=== PATIENT | female | born 1950 | race Caucasian/White ===

== ENCOUNTER 2020-07-09 11:21 | Inpatient (IN) | payer OTHER, MEDICARE ==
--- OUTSIDE RECORDS SUMMARY | 2020-07-09 11:26 | XMS REPORT | Continuity of Care Document ---
:1950 Author Organization [facility] t Address [address] [place] [address] Care Team Providers Name Role Phone Pcp Primary Care Physician Unavailable Provider, Urgent Care Attending Clinician Unavailable Corrie Chavez Attending Clinician Jim Storm DO Attending Clinician Everardo Conteh MD Attending Clinician Emilee Mccarthy MA Attending Clinician Unavailable Otoniel Selby MA Attending Clinician Unavailable Calixto BERNAL Attending Clinician Unavailable Calixto Andrew Attending Clinician Lester Attending Clinician Unavailable Malik ALARCON Attending Clinician Unavailable Kvng FIGUEREDO, Devin Attending Clinician Unavailable Shamika Newsome NP Attending Clinician EVERARDO CONTEH Attending Clinician Unavailable Jer VELAZQUEZ Attending Clinician Laurence Nath NP Attending Clinician Otoniel Machado MD Attending Clinician Sumanth ALARCON Attending Clinician Unavailable Majo Rojas MD Attending Clinician MARIAELENA ELAM Attending Clinician Unavailable Mariaelena Elam MD Attending Clinician Stacey Bhatt MD Attending Clinician [phone] Mariaelena Elam MD Attending Clinician Chaz FIGUEREDO Attending Clinician Unavailable Power ALARCON Attending Clinician Unavailable MAJO ROJAS Attending Clinician Unavailable WILDA RAMOS Attending Clinician Unavailable EVERARDO CONTEH Admitting Clinician Unavailable MARIAELENA ELAM Admitting Clinician Unavailable WILDA RAMOS Admitting Clinician Unavailable Payers Payer Name Policy Type Policy Effective Date Expiration Date Sour ce Number MEDICAREMEDICARE A [id number] 2017 EMILIANO Gonzalez [id number] 2017-P 00:00:00 - Medical resentMedicare Center MCR [id number] 2019 EMILIANO Mcbridekes SUPPLEMENT/INDIVIDUALA 00:00:00 - Medical [id number] /03/2019-PresentMedigap Problems Condition Condition Condition Status Onset Resolution Last Treating Co mments Source Name Details Category Date Date Treatment Clinician Date 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 Flushing Flushing Disease Active Last [facility] - Assessmen [facility] - 00:[facility]: t & Plan: Medical 00 I do not Center think that flushing is a liver problem I advised her to speak to her gynecolog ist. Alternati ve causes such as carcinoid and mastocyto sis should be considere d if her gynecolog ist feels that the syndrome is not related to estrogen. History of History of Disease Active Last [facility] hepatitis hepatitis -18 Assessmen Jonel munguiaes - C C 00:00: t & Plan: Medical 00 Treated Center with interfero n and ribavirin in - confirmed cure on 07/22/2019 . No further testing is required. Immunity Immunity Disease Active Last [facility] t status status 07-21 Assessmen Carlos - testing testing 00:00: t & Plan: Medic al 00 CDC Center recommend s that all patients with chronic liver disease, regardles s of etiology, should be immunized to prevent hepatitis A and hepatitis B if they are not already immune. This should be done in addition to other age-appro priate vaccines. 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 Hepatitis vaccines are not required. required. History of History of Disease Active Last [facility] hepatitis hepatitis 07-21 Assessmen Jonel ukes - B B 00:00: t & Plan: Medical 00 Testing Center on 07/22/2019 showed anti-HBc (+), HBsAg (-), anti-HBs (-). This indicates prior exposure without viral replicati on. She is at risk for reactivat ion of infection if she is immunosup pressed. Knee Knee Disease Active [facility] osteoarthr osteoarthr 10-04 Susan kes - itis itis 00:00: Medical 00 [place] Osteoarthr Osteoarthr Disease Active [facility] itis of itis of 10-04 Carlos - left knee left knee 00:00: Medi tabitha 00 Center S/P knee S/P knee Disease Active [facility] t replacemen replacemen 10-04 Susan kes - t t 00:00: Medical 00 Center Allergies, Adverse Reactions, Alerts Allergy Allergy Status Severity Reaction(s) Onset Inactive Treating Comm ents Source Name Type Date Date Clinician Sulfa DA Active [facility] (Sulfona 4[facility]14 [facility] Antibiot 00 l of ics[facility] [place] codeine DA Active [facility] 4[facility]14 [facility] [place] Sulfa DA Active U [facility] (Sulfona 4-12 [facility] 00:[facility]: [facility]ospita Antibiot 00 l of ics) [place] codeine DA Active U [facility] 4[facility]12 [facility] 00[facility] [place] Codeine Drug Active Other [facility] Sulfate Allergy 8-17 reaction( [facility] - 00:00: s): Medical 00 nausea Center and vomiting Sulfamet Drug Active Nausea And 2018- [facility] hoxazole Intolera Vomiting 7-18 Luke s - -Trimeth nce 00:00: Medical oprim 00 Center Codeine Drug Active Itching, 2018- [facility] Allergy Nausea Only, 7-18 Noe es - Rash 00:00: Medical 00 [place] Levoflox Drug Active Nausea And Other [facility] acin Allergy Vomiting 7-18 reaction( Luke s - 00:00: s): Medical 00 hives, Center hives Levaquin Adverse Active hives [facility] Reaction [facility] Codeine Adverse Active nausea and [facility] Sulfate Reaction vomiting [facility] sulfa Adverse Active rash [facility] drugs Reaction [facility] Family History Family Member Diagnosis Comments Start Date Stop Date Source Natural brother Thyroid disease [facility] Natural father Heart disease [facility] Natural father Thrombosis [facility] Natural mother Cancer [facility] Natural sister Thy[facility] Social History Social Habit Start Date Stop Date Quantity Comments Source History SDOH [facility] - Alcohol Std Drinks Medica Center History [facility] - Alcohol Binge Medical Tiffanie ter Sex Assigned At [facility] Tobacco use and 2020-03-30 2020-03-[address] [facility] kes - exposure 00:00:00 00:00:00 [facility] Alcohol intake 2020-03-30 2020-03-[address] 00:00:00 non-drinker of Medical Ce nter alcohol (finding) History SDOH 2019-08-28 2019-08-[address] [facility] - Alcohol Frequency 00:00:00 00:00:00 [facility] Tobacco Comment 2019-07-22 2019-07-22 smoking snice [address] [facility] - 00:00:00 00:00:00 years [facility] Alcohol Comment 2019-07-22 2019-07-22 quit in 1996 [facility] - 00:00:00 00:00:00 [facility] History of tobacco 2016-12-21 Current smoker [facility] use 00[facility] Medical Center Smoking Status Start Date Stop Date Source Former smoker 2020-03-30 00:00:00 2020-03-30 00:00:[address] [facility] Medications Ordered Filled Start Stop Current Ordering Indication Dosage Frequency Signature Comments Components Source Medication Medication Date Date Medication? Clinician (SIG) Name Name atorvastati Yes 10mg QD Take [address] n (LIPITOR) 25 by mouth Luke s - 10 MG 09:48: daily. Medical tablet 12 [place] calcium Yes QD Take by [facility] carbonate/v 1-04 mouth Lukes - itamin D3 17:20: daily. Medica l (CALCIUM 44 Center 600 + D,3, ORAL) citalopram Yes 40mg QD Take [address] (CELEXA) 40 1-04 by mouth Luke s - MG tablet 17:20: daily. Medica l 44 [place] levothyroxi Yes 50ug Take [address] ne 1-04 mcg by [facility]ukes - (SYNTHROID, 17:20: mouth Medic al LEVOTHROID) 44 Every Center 50 MCG morning on tablet an empty stomach. lisinopril Yes 20mg QD Take [address] (PRINIVIL,Z 1-04 by mouth Luke s - ESTRIL) 20 17:20: nightly . Me dical MG tablet 44 Center metoprolol Yes 50mg QD Take [address] succinate 1-04 by mouth [facility] - 50 mg CSpX 17:20: daily . Medi tabitha 44 [place] milk Yes QD Take by [facility] thistle 150 1-04 mouth [facility] - mg Cap 17:20: daily. [facility] 44 [place] cyclobenzap Yes 10mg Take [address] rine 1-04 by mouth [facility] - (FLEXERIL) 17:20: as needed Me dical 10 MG 44 . [place] tablet valACYclovi Yes 500mg Take [address] r (VALTREX) 1-04 mg by [facility] - 500 MG 17:20: mouth as Medical tablet 44 needed . [place] rosuvastati Yes 10mg QD Take [address] n (CRESTOR) 1-04 by mouth Luke s - 40 MG 17:20: daily . Medical tablet 44 [place] omeprazole 2019-03 Yes 40mg QD Take [address] (PriLOSEC) 03-06 by mouth [facility] - 40 MG 00:00: daily. Medical capsule 00 [place] hepatitis B 2019-03 2020- No Hepatitis B .5mL Inject 0.[address] vaccine 0-13 10-13 core mLs [facility] - (Heplisav-B 00:00: 23:59 antibody intramuscu Medical , PF,) 20 00 :00 positive larly once [place] mcg/0.5 mL for 1 Soln dose. intramuscul ar solution meloxicam No 15mg Take [address] (MOBIC) 15 10-06 by mouth Luke s - MG tablet 11:28: 00:00 as needed Me dical 09 :00 . [place] omeprazole No 40mg QD Take [address] (PRILOSEC) 10-06 capsule [facility] - 40 MG 00:00: 23:59 (40 mg Medical capsule 00 :00 total) by [place] mouth daily for 90 days. rosuvastati No 40mg QD Take [address] n (CRESTOR) 7 07-30 by mouth Noe es - 40 MG 15:22: 00:00 daily. Medical tablet 10 :00 [place] [facility] Yes Ginny [address] n Calcium n Calcium [place] Luke [facility] Clinics Vital Signs Vital Name Observation Time Observation Value Comments Source Body weight 2020-03-30 09:41:[address] [facility] BMI 2020-03-30 09:41:00 29.95 kg/m2 [facility] Systolic blood 2020-03-09 16:30:00 157 mm[Hg] [facility] pressure [facility] Diastolic blood 2020-03-09 16:30:00 69 mm[Hg] [facility] S t [facility] pressure [facility] Heart rate 2020-03-09 16:30:00 86 /min [facility] Oxygen saturation in 2020-03-09 16:00:00 95 /min [facility] - Arterial blood by Medical Ce nter Pulse oximetry Respiratory rate 2020-03-09 13:30:00 21 /min [facility] Body temperature 2020-03-09 13:00:00 36.72 Martha 98.1O [facility] Body height 2020-03-09 08:50:[address] [facility] Procedures Procedure Date / Time Performing Clinician Source Performed US LIVER BIOPSY 2020-03-09 12:57:[address] [facility] TISSUE EXAM 2020-03-09 12:55:[address] [facility] CT ABDOMEN WITHOUT IV 2020-03-09 11:26:00 Maninder Murphy [facility] PT/APTT 2020-03-09 08:17:[address] [facility] CBC W/PLT COUNT & AUTO 2020-03-09 08:17:00 Maninder Murphy [facility] BASIC METABOLIC PANEL (7) 2020-02-17 12:14:00 Nini Bernal [facility] HEPATIC FUNCTION PANEL 2020-02-17 12:14:00 Nini Bernal [facility] CBC W/PLT COUNT & AUTO 2020-02-17 12:14:00 Nini Bernal [facility] PROTHROMBIN TIME/INR 2020-02-17 12:14:00 Nini Bernal [facility] HEPATITIS B PCR, 2020-01-15 14:02:00 Kalia Conteh [facility] QUANTITATIVE [facility] HEPATITIS B SURFACE 2020-01-15 14:02:00 Kalia Conteh [facility] HEPATITIS B CORE ANTIBODY, 2020-01-15 14:02:00 Kalia Conteh [facility] CBC W/PLT COUNT & AUTO 2019-11-04 08:47:00 [facility] HEPATIC FUNCTION PANEL 2019-11-04 08:47:00 Nath, Jimmy Spring [facility] BASIC METABOLIC PANEL (7) 2019-11-04 08:47:00 Jimmy Nath [facility] REPORT OF PROCEDURE - 2019-10-07 11:26:20 Bhavin Elam [facility] ENDOSCOPY [facility] REPORT OF PROCEDURE - 2019-10-07 11:19:50 Sheikh Bhavin [facility] ENDOSCOPY [facility] TISSUE EXAM 2019-10-07 10:26:00 Sheikh Bhavinmary Ferrell [facility] COLONOSCOPY,POLYPECTOMY 2019-10-07 10:12:00 Bhavin Elam [facility] UPPER ENDOSCOPY,BIOPSY 2019-10-07 10:12:00 Bhavin Elam [facility] US ABDOMEN COMPLETE 2019-08-01 10:00:00 Mack Rojas [facility] COMPREHENSIVE METABOLIC 2019-07-22 11:46:00 Mack Rojas [facility] - PANEL [facility] BILIRUBIN, DIRECT 2019-07-22 11:46:00 Mack Rojas [facility] CBC W/PLT COUNT & AUTO 2019-07-22 11:46:00 Mack Rojas [facility] - DIFFERENTIAL [facility] HEPATITIS A ANTIBODY, IGG 2019-07-22 11:46:00 Mack Rojas [facility] HEPATITIS B SURFACE 2019-07-22 11:46:00 Mack Rojas [facility] - ANTIGEN [facility] HEPATITIS B SURFACE 2019-07-22 11:46:00 Mack Rojas [facility] - ANTIBODY [facility] HEPATITIS B CORE ANTIBODY, 2019-07-22 11:46:00 Mack Rojas [facility] - TOTAL [facility] IRON, TIBC, % SAT. 2019-07-22 11:46:00 Mcak Rojas [facility] - [facility]WITHOUT FERRITIN[facility] 2019-07-22 11:46:00 Mack Rojas [facility] CERULOPLASMIN 2019-07-22 11:46:00 OswaldoMack [facility] ANTI-NUCLEAR ANTIBODY 2019-07-22 11:46:00 Oswaldo Mack [facility] - (MARY) [facility] ACTIN (SMOOTH MUSCLE) 2019-07-22 11:46:00 Oswaldo Mack [facility] - ANTIBODY, IGG [facility] HEPATITIS C PCR, 2019-07-22 11:46:00 Oswaldo Mack EMILIANO [facility] - QUANTITATIVE [facility] IMMUNOGLOBULIN G (IGG) 2019-07-22 11:46:00 OswaldoMack baeza [facility] MARY TITER AND PATTERN 2019-07-22 11:46:00 OswaldoMack baeza [facility] [id number]\\, 2019-07-22 11:45:00 Mack Rojas [facility] SERUM [facility] MITOCHONDRIA M2 ANTIBODY 2019-07-22 11:45:00 Oswaldo Mack [facility] - (IGG) [facility] Plan of Care Planned Activity Planned Date Details Comments Source Future Scheduled 2029-10-[address] Noe es - Test 00:00:00 malignant neoplasm of Medica Center colon (procedure) [code = 267599192] Future Scheduled 2024-07-23 DTAP/TDAP/TD VACCINES [facility] - Test 00:00:00 (2 - Td) [code = [facility] ter DTAP/TDAP/TD VACCINES (2 - Td)] Future Scheduled 2020-03-[address] [facility] - Test 00:00:00 (12+) [code = [facility] DEPRESSION SCREENING (12+)] Future Scheduled 2018-06-[address] [facility]kes - Test 00:00:00 WELLNESS (YEAR 2 or Medical Center FIRST YEAR if no IPPE) [code = MEDICARE ANNUAL WELLNESS (YEAR 2 or FIRST YEAR if no IPPE)] Future Scheduled 2017 PNEUMOCOCCAL 65+ YRS [facility] - Test 00:00:00 (1 of 1 - [facility] [id number]) [code = PNEUMOCOCCAL 65+ YRS (1 of 1 - [id number] PCV13)] Future Scheduled 2002 SHINGLES VACCINES ([address] [facility] - Test 00:00:00 of 2) [code = SHINGLES Medic al Center VACCINES (1 of 2)] Future Scheduled [address] Noe es - Test 00:00:00 malignant neoplasm of Medica l Center breast (procedure) [code = 364410144] Encounters Start End Encounter Admission Attending Care Care Encounter Source Date/Time Date/Time Type Type Clinicians Facility Department ID 2020-06-24 2020-06-24 Urgent Provider, [facility] [id number] 08:49:40 09:29:33 Care [facility] Urgent Health [id number] Care [place] [id number] Professio [phone] nal [address] 2020-06-24 2020-06-24 Telephone Duglas, [facility] [id number] 00:00:00 00:00:00 [facility] [id number] [place] [id number] Professio [phone] nal 0[address] 2020-06-16 2020-06-16 [id number] 2020-06-08 2020[facility]06-08 [facility] [id number] 2020-06-04 2020-06-04 [facility] [id number] 2020-06-01 2020-06-01 [facility] [id number] [facility] 2020-06-01 2020-06-01 [facility] [id number] 2020-05-31 2020-05-31 [facility] [id number] [facility] 2020-05-21 2020-05-21 [facility] [id number] [facility] 2020-05-18 2020-05-18 [facility] [id number] [facility] 2020-05-11 2020-05-11 Patient Emeterio, [facility] [id number] 00:00:00 00:00:00 Outreach [facility] [id number] [facility] [id number] GARY [id number] 2020-05-11 2020-05-11 [facility] [id number] [facility] 2020-04-27 2020-04-27 [facility] [id number] [facility] 2020-04-14 2020-04-14 [facility] [id number] [facility] 2020-04-07 2020-04-07 [facility] [id number] [facility] 2020-04-01 2020-04-01 [facility] [id number] [facility] 2020-04-01 2020-04-01 [facility] [id number] [facility] 2020-03-31 2020-03-31 [facility] [id number] [facility] 2020-02-27 2020-02-27 Outpatient [facility] [id number] [facility] 00[facility]00 [facility] 2020-01-21 2020-01-21 Outpatient [facility] [id number] [facility] 00:00:00 [facility] 2019-12-13 2019-12-13 Office BRITTON Machado [id number] 13:51:31 14:35:10 Visit Miguel Olson [id number] [place] [phone] [address] 2019-11-28 2019-11-28 Outpatient [facility] [id number] [facility] 00:[facility]00 00:00:00 [facility] 2019-11-06 2019-11-06 [facility] [id number] 11:10:00 11:10:00 [facility] 2019-11-05 2019-11-05 [facility] [id number] 11:00:00 11:00:00 [facility] 2019-10-21 2019-10-21 [facility] [id number] 09:00:00 09:00:00 [facility] 2019-09-17 2019-09-17 Office ElamHELDER woodward [id number] 09:10:27 17:17:16 Visit Bhavin Ferrell AMBULATOR [id number] Y [id number] Results Test Description Test Time Test Comments Results Result Comments Source UTERUS W/WO TUBE/OVA. PROLAPSE 2020-06-18 12:55:00 Test Item Value Reference Range Interpretation Comme nts UTERUS W/WO RUN DATE: TUBE/OVA. 06/18/20 [facility] PAGE 1 RUN TIME: 1813 PROLAPSE Specim en Inquiry RUN USER: INTERFACE (test code = PATIENT: UTERUSPRO) BRIGID JACKSON LOC: BUTCHI U #: [id number] AGE/SX: 69/F ROOM: RE06/17/20REG DR: Angelina Huffman MD : 54 BED: DIS: [place] [facility] [place]: SPEC #: [id number] RECD: STATUS: ALICE REQ #: [id number] NIMCO: 06/17/20- SUBM DR: Angelina Huffman MD ENTERED: 06/17/20 SP TYPE: UTERUSPRO LUIS DR: ORDERED: LEVEL IV CODES: [id number] - UTERUS, NOS PROCEDURES: LEVEL IV (Incomplete) TISSUES: UTERUS, NOS - UTERUS,CERVIX,BILATERAL TUBES AND OVARIES CLINICAL HISTORY 69 year old, uterine prolapse (timur) FINAL DIAGNOSIS Uterus, bilateral fallopian tubes and ovaries, hysterectomy and bilateral salpingo- oophorectomy: cervix - parakeratosis consistent wit h prolapse - no dysplasia identified endometrium - benign endometrial polyp in a background of weakly proliferative phase endometrium myometriu m - leiomyomas uterine serosa - no fibrous adhesions right fallopian tube - no signific ant pathologic alteration left fallopian tube - benign paratubal cysts right and left ovaries - no significant pathologic alteration CPT: [id number] ls/wpd GROSS DESCRIP TION ANATOMIC SOURCE OF TISSUE (per Requisition): Uterus, cervix, bilateral tubes and ovaries The specimen is received in formalin in a container, labeled with the patient's name and greer ignated "uterus, cervix, bilateral tubes and ovaries". It consists of an 8.7 x 6 x 3.8 cm hysterect magnolia specimen with attached bilateral adnexa. The uterus weighs 82 gms. The serosa is swift, smooth, and glistening and contains a protruding 1.5 cm subserosal, firm nodule in the posterior wall. The cervical external os measures 0.5 cm. The portio vaginalis measures 3.7 cm. The uterine cervix measures 4.5 cm in length. Drive Away Driver sections are submitted in CONTINUED ON NEXT PAGE * * RUN DATE: 06/18/20 [facility] PAGE 2 RUN TIME: 1813 Specimen Inquiry RUN USER: INTERFACE SPEC #: [id number] PATIENT: BRIGID JACKSON #[id number] (Continued) -- GROSS DESCRIPTION (Continued) A1. The endometrium measures 0.1 cm and contains a 0.8 cm red endome trial polyp. The myometrium measures 1.7 cm and contains additional swift, white, firm nodules m easuring up to 0.5 cm. No degenerative changes are noted. Drive Away Driver sections ar e submitted in A2 and A3. The right adnexa consists of a 2.4 x 1.1 x 0.9 cm ovary with an attac hed 6 x 0.4 x 3 cm segment of fallopian tube with fimbriae The entire fimbriae and one cross-secti on of tube and ovary are submitted in A4. The left adnexa consists of a 2.7 x 1.4 x 1. 2 cm ovary with an attached 4 x 0.3 x 0.3 cm segment of fallopian tube with fimbriae and multiple s loren-translucent, paratubal cysts measuring up to 0.6 cm. The entire fimbriae and one cross-secti on of tube with cysts and ovary are submitted in A5. stefania 06/17/20 Signed Sherly Viera MD 06/18/20 1255 END OF REPORT COVID 19 Asymptomatic IH [id number] 15:33:00 Test Item Value Reference Range Interpretation Comments COVID 19 NEGATIVE NEGATIVE This test has b een Asymptomatic IH AG authorize d only for the (test code = detection ofpro teins from COVNONPUIAG) SARS-CoV-2, not for any other viruses orpathogens. N egative results should be treated as presumptive andconfirmed wi th a molecular assay , if necessary for patientmanageme nt. Negative result s do not rule out COVID- 19 andshould not b e used as the sole basis for treatment orpat ient management deci sions, including infec tion controldecision s. Negative result s should be considered i n thecontext of a patient's recent exposure s, history and thepresence of clinical signs and symptoms consis tent withCOVID-19. T his test has not been FD A cleared or approved; th e test hasbeen authori tavia by FDA under an Emerge ncy Use Authorization(E UA) for use by laborato bob certified under the CLIA thatmeet the re quirements to perform mode rate, high or waivedcomple xity tests. This jennifer t is authorized for use at thePoint of Car e (POC), i.e., in patien t care settingsoperati ng under a CLIA Certificat e of Waiver, Certifi franchesca ofCompliance, o r Certificate of Accreditation. This test is only authori zemichelle for the duration of thedeclaration that circumstances e xist justifying theauthorizatio n of emergency use o f in vitro diagnostic test sfor detection and/o r diagnosis of CO VID-19 under Gohhctp42 4(b)(1) of the Act, 21 U.S .C. 360bbb-3(b)(1), unless theauthorizatio n is terminated or r evoked sooner. CHEMISTRY 7 [id number] 11:37:00 Test Item Value Reference Range Interpretation Comments SODIUM (test code = NA) 141 mEq/L 135-145 N POTASSIUM (test code = K) 4.3 mEq/L 3.5-5.0 N CHLORIDE (test code = CL) 103 mEq/L 100-115 N CARBON DIOXIDE (test code = CO2) 30 mEq/L 22-31 N ANION GAP (test code = GAP) 12.60 10-20 N GLUCOSE (test code = GLU) 72 mg/dL 65-110 N BLOOD UREA NITROGEN (test code = 11 mg/dL 7-18 N BUN) GLOMERULAR FILTRATION RATE (test 100 ml/min >60 N code = GFR) CREATININE (test code = CREAT) 0.6 mg/dL 0.5-1.0 N CALCIUM (test code = CA) 9.6 mg/dL 8.4-10.2 N CBC W/AUTO [id number] 11:21:00 Test Item Value Reference Range Interpretation Comments WHITE BLOOD CELL (test code = WBC) 7.8 K/mm3 6.5-12.3 N RED BLOOD CELL (test code = RBC) 4.39 M/mm3 3.51-4.69 N HEMOGLOBIN (test code = HGB) 14.4 g/dL 10.1-13.8 H HEMATOCRIT (test code = HCT) 43.9 % 32.5-41.8 H MEAN CELL VOLUME (test code = MCV) 100.0 fL 84.6-96.6 H MEAN CELL HGB (test code = MCH) 32.8 pg 27.3-33.9 N MEAN CELL HGB CONCETRATION (test 32.8 gm/dL 32.0-34.2 N code = MCHC) RED CELL DISTRIBUTION WIDTH (test 12.0 % 12.2-16.3 L code = RDW) PLATELET COUNT (test code = PLT) 254 K/mm3 134-363 N MEAN PLATELET VOLUME (test code = 10.6 fL 9.2-12.7 N MPV) NEUTROPHIL % (test code = NT%) 45.2 % 57.9-77.3 L LYMPHOCYTE % (test code = LY%) 34.9 % 14.5-29.7 H MONOCYTE % (test code = MO%) 13.6 % 3.6-10.2 H EOSINOPHIL % (test code = EO%) 5.3 % 0.0-3.0 H BASOPHIL % (test code = BA%) 0.6 % 0.1-0.9 N NEUTROPHIL # (test code = NT#) 3.5 K/mm3 LYMPHOCYTE # (test code = LY#) 2.7 K/mm3 MONOCYTE # (test code = MO#) 1.1 K/mm3 EOSINOPHIL # (test code = EO#) 0.41 K/mm3 BASOPHIL # (test code = BA#) 0.1 K/mm3 RBC MORPHOLOGY REQUIRED (test code NORMAL NORMAL = RBCM) PLATELET MORPHOLOGY REQUIRED (test NORMAL NORMAL code = PLTMR) Tissue [id number] 18:05:00 Test Item Value Reference Range Interpretation Comments Case Report (test code Surgical Pathology = 104) Report Case: [id number] Authorizing Provider: Nini Bernal FNP Collected: 03/09/2020 12:55 PM Ordering Location: [facility] Radiology Main Received: 03/09/2020 01:44 PM Pathologist: Lidia Atwood MD Specimen: Biopsy, Liver ADDENDUM (test code = [id number] 3381) Ban0yqc6YetMMxwQGzAFpj sATryhGrys91mOK0aC64AR 8hMOEdVyM4IIIauuK5Vdd3 XGFmCRVppBAiG335x1xpp5 mjhcTtgJC3rAgsAVMxITZu YWluXGZzMjAgVGhlIGFkZG HvRCQiZSsfXNFvpI9mLWos l7QlKCM1wgBxYKHhyqJdxA nfYQRsd4AqdBDoa9NhlhKm ZYK0SKDnqEQfdx9aRUHeqK Yzru1cDQVbwz9= DIAGNOSIS (test code = k1wowHMoNCFduSK6SfTlPN 3220) Yxx1gyx3CqoAZgmXWzMCia kKMnigQvgx19uEA9oN32GP 9nOTHoZkD0ADHkynT0Joe5 RKJsPFZkoREhL816q0dmg3 woczLgyPW3fBcqSGPrTGWw YWluXGZzMjAgVGhlIGFtZW 1fyXPoaEOqbwFhu04lZWSy kBCrCZRptpEhUQZ5VJLhoT Pvyx3pITScwOHrjlJ4eQib eLYpotVjSgUgQVD1KFTpnK XzqQp3vVdeCU1kHNlldAKc TFNzgbSxp4SeUKSxG5MsNY OcTLAsi8Sgo46iokWix7Si Jxfyop9cmXEvXOHqNQFuiN Rxh2NukyOnihIwlCBrkf2u aXMgbGluZSBpcyBjaGFuZ2 JlMORag29dGzCXVvOUU2eI WJZDMQlFTIRvA3GgUUEhSV 1zKbJOEpAJL4uNUVNQGEuI WSYyM5ZuAGbvJ3eEWHWEG8 NBTCBGRUFUVVJFUyBPZiBS TOsBYDHYQW2NXwUupAJhXV AnVSByxbAJcYUeR1jnsbcu TNehktSuk62mkO6aV7N9CS VquS8wFYWyKTlazXdoeteg aoR2ySKml2FuhSEaDDXxVA eeMC2xNRBbUshkLcOcJIjf YXJccGFyXGYwIExJVkVSLC IBSJRQCBLMQC1RYSqJCOZC RCBORUVETEUgQklPUFNJRV ImeZMdOOtDG5FBReimL2Ij E0lIC73XUhLZJRLRXJzJTQ DiWzznGs0BXAUNIYGZKJOA ORCCCaWeK3mNGOPQSsMidU OuHQ9zDfrVNe5UNPNtD7BG V0BpXcVXDpS7ZUPLAXTXDG PBD0YSJFHGXVGUTgHXXF9u HUVME0DFN2RCC21nlRRdFW 0gDWiBMFYRD6NNVConBZ6B FKCIAOIONB6AVZhMWCnlOO zLZV4WMGJYOnOUXcOUF7Kj QDCPUWBUFLegcWDsPV6jZK fITW1PZFKKEVAAVO4ACSMu KDwxJSksICBBTkQgUkFSRS IKOOzHA36NRK9IHPQGW6AS RVJBVElPTlxwYXIgLSBzZW RbV14jhCNnsOavBEOvrMPa OTFkIdVwxEBzGXWnCai5VC RbsIVaEAKcOmBwH0piaofp KuNKJYJzi5hzI9bruCXPoX SqO3YlXKpgriAsSZodLDjq AMXsMIS4BS4vSGKsPPFqle 0= COMMENT (test code = b5vupXSyXULllSW2VgZhRE 8158) Ack2vvi6IimQAdnDHpKIpy jQSojmZyow15iCQ5yO99OU 3bZKGpWmW3HQFmvgZ1Gvt4 JJPdQXPmcPZzO833x4blf1 jtsgWugGA4sHzkJQLiXTVz YWluXGZzMjAgVGhlIGJpb3 XjyHKktV89bhNogRkxYVBi gmCkvWEpokFcDW2fODFnv4 8hBDtvxPTzYKieOUqyp3Wn qBC7dvUgGBGzs05hbSLvgN ZpYyBiZWNhdXNlIHRoZSBj jAGaFN58ZXRbLL5sGS2lhi FzZXMgYXJlIHdpdGhpbiBu k1ZzQNrbvtBnC4JkAU7qGA B4iFnxDDJkjBmbVHOkkMQr x2MmwWRaQYNxp72mtumpTy JhtPkuVRBfzKnftT52fG3m lP6liGO9GAqopZnyMDSwAT FfcUmhjuChSqVHVXPoiH0y MDUvMjAyMCkuXHBhclxwYX UiR5XtFAPru41eqYFkj0W4 DHybuGpql7oiIR01pA2oYJ BpcyBzZWVuIGFuZCByZXBy QVIhodDhHPZmp9GhnXJlda Nwy0GfoNUiw7Wdw6PgOBOe h9aoZkHjeSDhxD== CPT Code(s) (test code p8bdgHEmYVZukYV5WfYhEZ = 3357) Fhm5cdo0RviTTkiTRyRAlb zMTfoiCljx72pQX5fM54UG 2qZCMbCqH8HSVryiM0Gnb8 HWKbLWXveIAcM524s0qrz3 irhaVfbZX9jAsbIUSuNOYy YWluXGZzMjAgODgzMDcsID y1FaAtGPr8JTCeupbdTHX2 CLINICAL HISTORY (test e0sduWZtDDLbpMC3NmHfDS code = 3356) Tmd0zjy1OqyPRmnJYaNXsu xXVwcvOvgi73zIQ2qZ96ZU 7sPSDyUhM8KEQjpcN0Vem8 MZEzGIBbyWWsU658z1cpl4 noydQihZB0nOxiWZYdMRKf YWluXGZzMjAgNjcgeWVhci CrtLVyO2J4F7PqpJLpLZYb yNQsCYW4zHAaCU6djLIit7 jjBoGniN7xbk9zWMRkqpGt DRZjj3NiXWiszJo1OYMmEG 39rM9vbaHmPZPJTTBzHZWC TFQpIHRoYXRcfndlcmUgbW qoEUr8MOPzFETkeUCxETXh yLbhm0qfSgW2nTTnH6AjQN BvZiBoZXIgaGVwYXRpdGlz FHGpPLCtiXO6EZfpleFsKH Ome8Vmf2IsjnxyDMA4b7Oa N5OyQSZhhE3kBRq+dGVzdG ruLdRfe0Foq1VwLCHeL1Y6 w4NcLEkvbjDtYQhxeKe0QT 1mGT0Xv8C4GCRdJ7LstTCv EFJlMFVmg9vzLHTFU6MXLE DmUM9qUVN1rEhkuXUzPWYh GJ6pffJjI5TbMBAqWPDpzx 7kWYN2N0UtsFo+MjAyMCBs LZZnIYi2ME23KWhjFYg+VG oayoVqJUcgcPZ9FVJqTGYr NFA5TBC1chDnOUYlGAmuSG qizWyjtCMyd9HuONaeLDXm nHWktL74DEF8DGzck2CmrL ajQW3oRQ2TRqklORpgQYgb uAupspInp7ZrLWgseHjbfE XrWtNbrozzbfZjEBTtH9kq beinILsnSY9pyMQ4OXVsi8 9onT6uqHEufnOqmTpeTCAr xkIbdaUsssGdfdDhP4Rtue x+bmWyh5M7DO2eKXGjKCGg VzZbr8ncZIefWWXsT4HoBf SySLSmNhQoLLIhMjUvs2Sc VMS6ZREguEYzGPCmB29vAM ZwAfSQAVPpGT69BIqGLJuq mJ9oI5Z2j8XckjGsJCYmRk xwYXJccGFyfQ== SPECIMEN SOURCE (test u7paaGHlUFIzbNT2ToGkTM code = 3377) Bws7mzp2CvhPQryEZmFDpj cWRxtwYpgw49zXO1qK78TZ 9oFCMyPrD8JNYaidL5Txn6 DSImYIWteKAbS511k3vuv6 adbgYiyUI7iFdyCMElHWKy CKsxNSIwFjKbQEx1DSUkbX FyfQ== GROSS DESCRIPTION (test p1kguRKbFJFhzCUiXtEhBC code = 3366) IpRFRsr8zeWMDmnXImTlYi MzNcZnRuYmpcdWMxXGRlZm Iui0aee480zOUmu9esBLFe HcR5tFWkEAQyqOZsZ788u1 tcf0pqtbGdzQC7WQKnGWH2 ZEewyyBjlnU2RBshzZAsCi E3BRyxmhVhBUqaisHsfmOi Syv7RKBtZ632OVZ8pFnpm5 mpOOJ1XNPhZUNcJqMhLr2e jNMoI712LQDiWWGYBTKiiF b6BISaljThjuMdmCVSk249 B054o4mqUQPnqvEwvOoAnr sqn5ziH110SXCcePYnwlAe ZbFxRJMzsQGqrZH7YAXiNN 6rcysdDmPjNM7akxtpDcSc DM4zcen9TnVrYR2vaxvrQr QcHStbUEObwlxxOOEry4Yb lnpgUR7mW4Bym5V0cC8apN FmABQwtEIjJjLzKVNqoh3q dOKtRSzvy7IbQAS0luY8vN ArzAGoWTRrVL73Mfwke6Yi FfjlSDA2KWOqdaPzf2Nwg8 dtPiMwcdQvL3lrA1GbEUQr LZBlGUEsTzBceoZxj0Mlu4 NnmJTrjZa9x8feXUNeCMXb hEczm6toPZW9KWQsP5N8cV Lhs8keLQkpBJAunXK4vxeu MWshKUSwdvZ2riibEGwvUT BpqXP7txbtKFwtTLLiRkM9 ckiiTCumMTBvVBO7NJvao7 96ZLG5SLybJemkWHptTIKu bmNvbnRccGduZGVjXHBsYW luXHBsYWluXGYwXGZzMjRc wYfvtGcpgE9uNgGmXlBtKL skWH0cNLGyX7tjrRKdTHDy VZOoA6vbNsNesK6gqNdnYR lwfzOhYMDzJ2ViywUbGLhq BXKydh9nxCbhECjgYhTmBU QgdGhlIHBhdGllbnQncyBu JC7cWFDiN4Jnq7Mnl80sei LtCmRaFNNzGOBmkvV0qBFv LOnmjqZsSLBxi3TbhTIeMC JlIDIgdGFuLXllbGxvdyBj pCilfmBesVEsoWN1oVUvzQ MqL25yQOOutKFmj5SxxF7o IHVwIHRvIDEuNSBjbSBpbi VmvuJzqUXbrDPzBA3oxZwh LfjaVR0bHEIbTYnyYVAfOO 8puKVrBII3ySvfvOPpvuFm UpnewYSxIJEnLX6pAZL3Dw 0tgREnUWFcveO3d4AwGPdz IEExLlxwYXJccGFyIFBpbG BtKVIfI1WkjFryqamsBTCp LWbDMHqHO3BKTEjrTCT5 MICROSCOPIC DESCRIPTION y3eqoZIqMDEqeJY7EmFqSN (test code = 3371) Ahp1bxf9FjeKIqyOQkSZms wHJgtsCdbn46zHQ4dM54TC 1zPDVnMxM7DDZdpkP2Gvf5 MBMhRHPcjGKcQ759y9xaz3 dqbzEafDD7xRbtKAMaYJBi ZGimFPNbOqPuH1CavUqgmw AxrT04jjL5x17cK79sPMDt w7ZocWm2OIVvnGOyQC8hzT aqXOT9yURsUUixQIH3XWFb bXscbmSdHYRuh4Z8BFhflO RzN4LaIKNeOHGlbyEpPKZm lVH9PAFpg0RjZPFysGIeaX kjof8jCVtpSAOjosPiaOH8 zaNjyJKmj5urleSurWqsPW h5aNOol1F9zIStlZMdQD8j uI2qvkZoqE4bvUFpjUC0mP 0xBLitcXagx2LnPHZzk42d bCLkb3Xutm5rcTwmly1rNb 0wXThueRztnW9qlKYsvjOm thRcR5IatXLsGODxzSypXB uyDQGyZBQefcYnXO3dK1Xo fI8zPPfleZ9bdMMaJKbrfL 3qbnOfbLhnkRRhmMYqh2Ts rq2kURulMZWitSUgVVLtaU MgYXJlIHByZXNlcnZlZCBh myWqyH5jWT2szmqlQlbkTe NKtLloLZI6H6N7qBFdVRLf PNF2kH8vDRvzSXEsKUJfvm QjZHYnTHTsPKqfNT3sdbcw YAesdSIoQ4NpFAAdqJyyfO KivWKsbY7elGCodZ81q0s4 mA2qESgjCSIiHlDyLUEyrC 6sqIHprj2rGcMfOUTkOZts v05uoO0aTUpuYRKcXR4bXQ 3tyTWpbK1haWailmNqnnXl AV8cANTop18nsRVsoHKnd6 XvvH4iF1p6L00yEB9jwTZw LR76J3jguIDzovPzrLGak1 IfnG5fAMSceeftDZIsIHJr biBzdGFpbiBpcyBuZWdhdG r8MV7yQf1bdSsenFdzJBXj zN9awOntvvSapwVlg1Onpr XwqmDDQMNvp8n7yVScrRMp mZJtYHCqhTQdsq6xKzI6tO I5gHnwQSW3XYmcOZOeq4lb IDEtMiBjZWxsIHRoaWNrIG fvlXM6d1F1kDSiOWCtYIZg C2FsBPDqALKvjLUyjc1kHP JjgWNfjiShvT51chVst4U0 KWcrJF3xALPvevwfe4Z2WS gfFjoglv8hoIEpBFKqQJPj LTCkBSWsR7Eyp2cgdxPfME DbkZOcqG1uJOAbJgPpjYXl v2BkmHPmg8u2kQHpVWA4uF TzgyXvbNedPBU0dRKmJX5n HSFaY5Qch4Lfz76mRBbpXH JccGFyXHBhclxwYXJ9 SPECIAL STUDIES (test i1okkFKgVOAtz2oeGDBauM code = 3376) FuZzEwMzNcZnRuYmpcdWMx NPivdrXpEArlh3BlU4LvUm AwMFxhbnNpXGRlZmxhbmcx NQKrGHI2xqXvXJDfLDeyEN VrGUctDo9swAWtyDkhCqKs COYwn8bypsILgijfyIj0j0 szJFUoGzO8hZStXKfwB0zc owGsdVFsH0IpvJQqpOr1d0 qwMsVbUiM0uEBrQXcwD1mo hvTadMIlDOSjOXe7aJ06RB OepY1cqWNmZZgkmtCcLkE3 LXrqUQZxJwK3XQIdhHTpDE QmR7qsAXAqJHnoNJRwZWce aFRqXTV0yPjnz8J0qMOppM QdsOhsEmHmPbTmIzWZw0Ph NFx6zHvwH8NpLHOqRqX3gU QgUGFyYWdyYXBoIEZvbnQ7 mOobneTda99eaABoLLEoHT EbIsNxoUgbJAHuXMQUm6Tw wTokYJE1eZz9xLkwVmrkGW K5Kpb5SE1zvg15yon5hVbj JQUdyszlJjN7TGmbGXAaza ndCRt3WJveKLHsoLS9DFNz tLYeZ9PqQKBkIJ6fbch0OQ U0VLdzQJIaKuV1BZHxtYAi NZGqlGmvYXvme243QDL8Bx HlKS6cY3Uzz5U1jN4xhLRo JJZvhIIrTnZpSXUlnh2rlY DbXEprh4XrRRJ9ooC5pSDy sLJzLKGeNM45Jchri0CyGy zmx3RrJ16dgVN6QAzso2we TJ2nBxG3vbAdBLerw3pclM 2yByN8TYssXJ6dBL0eJPEn bM7zfawzJNRtScGdsqqzFW RgmPanulSvRm6ksAjtNCH8 OIuxM9jvpM5fUnN6HTmcW9 mcwM7zBRo4YRkipGH0XGQp gH8cYV2fttboi9aqOVrhQS mcDJHxhpD6ciJ4HIAveTJt E3PqjG9tTDMnVI5pbthyr6 uxHHN7TOqyFYTsWZB5FmDo BSZxv3Dclug0GmMhn9HeuO SnBXowN35tg877CSFnzuNj P3jhfCSdkisfxTRxvujxBR zkqhO0RKZrFXCwFWhaWWRu XGZzMjJcbGFuZzEwMzNcaG ljaFxmMVxkYmNoXGYxXGxv E5dpYaAbG8RyFXTbVzDiSP lwWKhnaJVdjDBxlDD8pO4z KA4dOSEmqUEoA6NdIGNsak VgaAAqZAL9pCWetAVkPH3g CDsopZZho3quc2FxO6jqoN rraPC6QN1nWYCtGFKmPPud z4WwoR6tYewgiCPvvaqsAD xmczIyXGxhbmcxMDMzXGhp D8gqErWsVZKreSkqKRvex8 NoXGYxXGNmMlxmczIyXGx0 cmNoXHBhclxwYXJccGxhaW 6yWwKtMeKaDaxbCK0lQSHq A2fbnPVqKJJjMHXyF1vaKp XzzF2xpEgzQCnhWoFyMdFi LpYCe909my9dEJHzyKZrxy VFfYIinS1pBPicGNciUSrv tMScYSwpf3lhQXLoq6j7bD YfRZMckfAmx4ppIAnvlvEp YSCbkYDlrJBhYSHdu16dVM mliKdeqRnmLVNye4FxzEff o3NpLrRvLImzh3OdM10hvA JvbCBzbGlkZXMgcnVuIGFs n75pp9czIWJsXiW0mPOclG G7kAYnuRHch5NxzLfrZVId n0ryFKRunl0hdpmtdLGhd6 VqiJ6depabLIcduEMzszEf WBYnx1y1eQVtRXUnRJDgSK qifOk9VZMzm404fm1pioG6 pAVpWFV6EDezIIWyLMEigh UgZXZhbHVhdGVkXHBsYWlu XGYxXGZzMjJcbGFuZzEwMz NcaGljaFxmMVxkYmNoXGYx ZErqE1avVgKaZ3KbLHYyEb WiqAPqO9sbfJVpVCFpFXhk XGYxXGZzMjJcbGFuZzEwMz NcaGljaFxmMVxkYmNoXGYx VVhtX8hqArToR9OdRNAyIz IgIFxwbGFpblxmMVxmczIy LQqoxxqdBJGiZPhfH0xzHo SuJXBybOsvSFqbr0WiJPHy DJFwCiawfuVlJZb3zuSxSH BhclxwbGFpblxmMVxmczIy KNypgosdAUNgWWbnE4kwBk RySSUdeEjmVCcpr1DmZVTz XGNmMlxmczIyIEltbXVub2 myv9ZpW1vbuMdafGD3PGXc Y9pixZIngXX6UMO5vE0qQG yjplIxSMMll1AoQPPaZVXn MbY5iE0jAGO3YvUOuYjcJG BsYWluXGYxXGZzMjJcbGFu ZzEwMzNcaGljaFxmMVxkYm WuXCKsQRrbV9poUzHoY4Qe KZOhHeScpVfyFPixEXb0Rc xwbGFpblxmMVxmczIyXGxh sqlpISWfSBibA6hlZcIyVN SzpYjiWAlgl3GgPPMfOQXq MlxmczIyIHMgTWVkaWNhbC CXBR52HJJvLXJarVsemV0y aHSJBBCrzyC0h9W3LQdzTX VnXYy3HOioiyVeSDEzcL0k QKJcAP2qUDf8cyJgLBUot6 LyYH4mTFLtnEGiLWI0ROGu p7YrB4Dta2JiTJTyWMKbxr 0jomXoXnPMhRKkCZDfrj15 QROoDC5aO0fsNSNuHFWiat LxmVVbd5QdYYQivYN0vHQd KR0YXnOJn42tRIThUZIRqv PoFSJqdLfpbBM1xwG7qZ2p LiBUaGUgRkRBIGhhcyBkZX Yhil0ilqUhYMVyERPrn3Ca bTJldDPipxAdE8Gck2AbNY Reek06SWypmRZquc12KR2y M2Usm7DkqE0kIRbeRXBvr6 TkwYFcwIOaCSBgp9MjB4ju ldicSRmrxHKrxV8kJSIvCR q3XSBsb0QdVQMki2QaLaSt ymTpENEjLQSaIKXsmU25RF O1kAdmfKicqrJcSU6bRRNq clLcIFMoYICdgL2tCKgzup UlSNVtqyB5z0S5BDosLMNq mzFmCyzvMDT0qhOhgnD9xJ CvU2elqldcWUgsIDFyd1Su dE8flFAAgZNcd5XeoANrtT QXeRTpDQ7zpjFkZB4gBFW3 ODggKENMSUEtODgpIGFzIH F6ZJwlAgszCLF2glGjOWMq j6IxCKitT8xkB22ysEqodM g5lEMtzDueaKBfwIJsCZTw plM9k3L6AEJpf3BdsyqqLH BsYWluXGYyXGZzMjJcbGFu ZzEwMzNcaGljaFxmMlxkYm VuIFNdAHadQ8mqEdVoBnFc TzzoVVG5yM== [id number] 18:05:00Surgical Pathology Report Case: [id number] Authorizing Provider: Nini Bernal FNP Collected: 03/09/2020 12:55 PM Ordering Location: [facility] Radiology Main Received: 03/09/2020 01:44 PM Pathologist: Lidia Atwood MD Specimen: Biopsy, Liver The addendum is being issued to report the results of repeat trichrome stain. Addendum electronically signed by Lidia Atwood MD on 03/12/2020 at 5:48 PMThe amendment is done after a repeat trichrome stain which isof better quality, and helped in more accurate assessment of fibrosis. The fibrosis in diagnosis line is changed from "FIBROSIS STAGE 2 OF 4" TO "FIBROSIS STAGE 3 OF 4, WITH FOCAL FEATURES Of REGRESSION" The change was communicated to Dr. Conteh via secure email on 03/12/2019LIVER, ULTRASOUND-GUIDEDNEEDLE BIOPSIESHISTORY OF CHRONIC HEPATITIS C, S/P TREATMENT AND WITH SVR- FIBROSIS STAGE 3 OF 4, WITH FOCAL FEATURES Of REGRESSION- MILD PORTAL INFLAMMATION WITH MINIMAL INTERFACE ACTIVITY- MINIMAL STEATOSIS (<1%), AND RARE BALLOONING DEGENERATION- see comment Signing Pathologist Direct Phone Line: [phone] electronically signed by Lidia Atwood MD on 03/12/2020 at 6:05 PM The biopsy shows mild portal inflammation, which is likely to be nonspecific because the current transaminases are within normal range. 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 [id number], [id number] X467 yearold female with metabolic syndrome and abnormal liver enzymes (AST and ALT) that were mildly elevated following the cure of her hepatitis C. Fatty liver disease is suspected since testing forother causes was negative. Most recent labs show AST/ALT 39/30 which have decreased from October 2019 labs (65/54). This may have been due to a 6+ lb weight loss in this interval of time. Tbil is within normal limits. Given a change in elevation in transaminases and FirboScan report of F3 fibrosisin February 2020 (10.4 kPa) versus a score of F0 (4.5 kPa) in December 2019.LiverReceived in formalinlabeled the patient's name, accession number and "[place] liver biopsy" are 2 swift-yellow cylindrical tissue cores measuring up to 1.5 cm in greatest length by 0.1 cm in diameter, which are filtered and s ubmitted in toto in A1.SHANAE Snell, HT (ASCP)Section shows two cores of liver parenchyma with greater than 10 portal tracts and is adequate for evaluation. The portal tracts show mild lymphocyte predominant inflammation with occasional eosinophils. 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 The bile ducts are preserved and unremarkable. Mild ductular reaction is present. There is minimal large droplet steatosis involving <1% of hepatocytes. Rareballooning is seen. Mild lobular inflammation is present. Glycogenated nuclei are present. Iron stain is negative. No hyaline globules are seen on PAS with diastase stain. Reticulin stain shows 1-2 cell thick hepatocytes trabeculae. Trichrome stain shows portal and periportal fibrosis. There are occasional bridging fibrous septa with features suggestive of regression. The interpretation of this case included the use of immunohistochemistry or special stains.Control Slides Examined: In-house known positive controls were evaluated along with the test tissue. These control slides run alongside of the patients sample show appropriate staining. Internal positive and negative controls when available are evaluated Immunohistochemistry technical testing was performed at [facility] Pathology Laboratory where it was developed and its performance characteristics were determined. Ithas not been cleared or approved by the U.S. Food and Drug Administration. The FDA has determined that such clearance or approval is not necessary. The test is used for clinical purposes. It should not be regarded as investigational or for research. This laboratory is certified under the Clinical Laboratory Improvement Amendments of 1988 (CLIA-88) as qualified to perform high complexity clinical laboratory testing.U/S, BIOPSY, [id number] 17:16:00Referring: Self (old/new, saw Dr. Conteh 18 yrs ago)Elevated liver enzymes, hepaitic fibrosisElevated liver enzymes, hepaitic fibrosisReason for Exam:->Elevated liver enzymes, hepaitic fibrosis [facility] : 1950 Sex: FFINAL REPORT History: Elevated liver enzymes. PROCEDURE: Following informed written consent, limited sonographic examination of the right upper quadrant and liver were performed. A skin site was identified, prepped and draped in the usual sterile manner. Noncontrast CT was performed prior to planned biopsy to confirm position of the colon and a safe window for the bi opsy. 2% lidocaine was given locally for anesthesia. In addition, the patient received 0.5 mg IV Versed and 25 mcg IV fentanyl for conscious sedation and pain control. Vital signs were monitored and remained stable. Conscious sedation and continuous patient monitoring were performed by the attending radiologist and a registered nurse for 10 minutes during the procedure. Using ultrasound guidance, a 16-gauge by pins needle and right upper quadrant anterolateral approach, total of two 16-gauge core tissue samples were obtained from the right hepatic lobe and submitted in formalin to pathology for evaluation. Overall, the patient tolerated the procedure well without immediate complications and was discharged from the department in stable condition. FINDINGS: Limited sonographic examination of the abdomen performed prior to during and following the biopsy demonstrates the needle tip in expected position within the right hepatic lobe. After the biopsy, there are no perihepatic fluid collections or evidence for hemorrhage. IMPRESSION: 1. Technically successful uncomplicated ultrasound- guided core biopsy of the liver. Signed: Maninder Murphy Verified Date/Time: 03/11/2020 17:16:48 Reading Location: [facility] [address] [facility] Body Reading Room liver [id number] 17:16:00Interface, External Ris In - 03/11/2020 5:19 PM CSTFINAL REPORT History: Elevated liver enzymes. PROCEDURE: Following informed written consent, limited sonographic examination of the right upper quadrant and liver were performed. A skin site was identified, prepped and draped in the usual sterile manner. Noncontrast CT was performed prior to planned biopsy to confirm position of the colon and a safe window for the biopsy. 2% lidocaine was given locally for anesthesia. In addit ion, the patient received 0.5 mg IV Versed and 25 mcg IV fentanyl for conscious sedation and pain control. Vital signs were monitored and remained stable. Conscious sedation and continuous patient monitoring were performed by the attending radiologist and a registered nurse for 10 minutes during the pr ocedure. Using ultrasound guidance, a 16-gauge by pins needle and right upper quadrant anterolateralapproach, total of two 16-gauge core tissue samples were obtained from the right hepatic lobe and submitted in formalin to pathology for evaluation. Overall, the patient tolerated the procedure well without immediate complications and was discharged from the department in stable condition. FINDINGS: Limited sonographic examination of the abdomen performed prior to during and following the biopsy demonstrates the needle tip in expected position within the right hepatic lobe. After the biopsy, there are no perihepatic fluid collections or evidence for hemorrhage. IMPRESSION: 1. Technically successful uncomplicated ultrasound-guided core biopsy of the liver. Signed: Maninder Murphy Verified Date/Time: 03/11/2020 17:16:48 Reading Location: [address] Body Reading [facility] 2020-03-09 11:49:00Referring: Self (old/new, saw Dr. Conteh 18 yrs ago)Unlisted Reason for Exam - Click Yes and Enter Reason Below->YesUnlisted Reason for Exam->Evaluate anatomy prior to image guided liver biopsyWill this procedure require oral contrast?->No [facility] : 1950 Sex: FFINAL REPORT TECHNIQUE: CT of the abdomen WITHOUT intravenous contrast and WITHOUT oral contrast. Dose modulation, iterative reconstruction, and/or weight-based adjustment of the mA/kV was utilized to reduce the radiation dose to as low as reasonably achievable. INDICATION: 69-year-old woman with evaluation of anatomy prior to image guided liver biopsy. COMPARISON: Abdomen MRI 07/25/2006. FINDINGS: ABSENCE OF INTRAVENOUS CONTRAST DECREASES SENSITIVITY FOR DETECTIONOF FOCAL LESIONS AND VASCULAR PATHOLOGY. LOWER THORAX: Unremarkable. HEPATOBILIARY: 0.7 cm hypodensity in the periphery of segment STEPH is too small to characterize, but is likely a benign entity such as a cyst or focal fatty infiltration. Nonspecific mild distention of the otherwise unremarkable gallbladder, which measures 4.2 cm in transverse diameter. No biliary ductal dilatation.SPLEEN: No splenomegaly.PANCREAS: No focal mass or ductal dilatation. ADRENALS: No adrenal nodule.KIDNEYS/URETERS: No hy dronephrosis, calculus, or mass. PERITONEUM/RETROPERITONEUM: No free air or fluid.LYMPH NODES: No lymphadenopathy.VESSELS: Atherosclerotic vascular calcifications in the abdominal aorta and bilateral common iliac arteries without aneurysm. GI TRACT: No distention or wall thickening. Interposition of the hepatic flexure of the colon anterior to the right hepatic lobe. BONES AND SOFT TISSUES: Osteopenia. Soft tissues are unremarkable. IMPRESSION:No acute abnormalities in the abdomen. Signed: Karine Felton MDReport Verified Date/Time: 03/09/2020 11:49:25 Reading Location: [address] Body Reading Room CT abdomen without IV [id number] 11:49:00Interface, External Ris In - 03/09/2020 11:51 AM CSTFINAL REPORT TECHNIQUE: CT of the abdomen WITHOUT intravenous contrast and WITHOUT oral contrast. Dose modulation, iterative reconstruction, and/or weight-based adjustment of the mA/kV was utilized to reduce the radiation dose to as low as reasonably achievable. INDICATION: 69-year-old woman with evaluation of anatomy prior toimage guided liver biopsy. COMPARISON: Abdomen MRI 07/25/2006. FINDINGS: ABSENCE OF INTRAVENOUS CONTRAST DECREASES SENSITIVITY FOR DETECTION OF FOCAL LESIONS AND VASCULAR PATHOLOGY. LOWER THORAX: Unremarkable. HEPATOBILIARY: 0.7 cm hypodensity in the periphery of segment STEPH is too small to characterize, but is likely a benign entity such as a cyst or focal fatty infiltration. Nonspecific mild distention of the otherwise unremarkable gallbladder, which measures 4.2 cm in transverse diameter. No biliary ductal dilatation.SPLEEN: No splenomegaly.PANCREAS: No focal mass or ductal dilatation. ADRENALS:No adrenal nodule.KIDNEYS/URETERS: No hydronephrosis, calculus, or mass. PERITONEUM/RETROPERITONEUM:No free air or fluid.LYMPH NODES: No lymphadenopathy.VESSELS: Atherosclerotic vascular calcifications in the abdominal aorta and bilateral common iliac arteries without aneurysm. GI TRACT: No distention or wall thickening. Interposition of the hepatic flexure of the colon anterior to the right hepaticlobe. BONES AND SOFT TISSUES: Osteopenia. Soft tissues are unremarkable. IMPRESSION:No acute abnormalities in the abdomen. Signed: Karine Felton MDReport Verified Date/Time: 03/09/2020 11:49:25 Reading Location: [facility] C013Y CT Body Reading [facility]PT/[id number] 08:36:00 Test Item Value Reference Interpretation Comments Range Protime (test code = 13.6 See_Comment [Autom ated 5902-2) message] The system which generated this result transmitted reference range : 11.9 - 14.2 seconds. The reference range was not used to interpret this result as normal/abnormal . INR (test code = 1.07 See_Comment [Automated 4971-6) message] The system which generated this result transmitted reference range : <=5.90. The reference range was not used to interpret this result as normal/abnormal . PTT (test code = 27.9 See_Comment [Automated 23972-4) message] The system which generated this result transmitted reference range : 22.5 - 36.0 seconds. The reference range was not used to interpret this result as normal/abnormal . ANDIE (test code = Effective 08/01/2018: ANDIE) PT Reference Range ChangeNew: 11.9-14.2 Previous: 11.7-14.7 RECOMMENDED COUMADIN/WARFARIN INR THERAPY RANGESSTANDARD DOSE: 2.0-3.0 Includes: PROPHYLAXIS for venous thrombosis, systemic embolization; TREATMENT for venous thrombosis and/or pulmonary embolus.HIGH RISK: Target INR is 2.5-3.5 for patients wiht mechanical heart valves. Lab Interpretation Normal (test code = 14147-7) [id number] 08:36:00 Test Item Value Reference Range Interpretation Comments PROTIME (BEAKER) (test code = 13.6 seconds 11.9-14.2 759) INR (BEAKER) (test code = 370) 1.07 <=5.90 PARTIAL THROMBOPLASTIN TIME 27.9 seconds 22.5-36.0 (BEAKER) (test code = 760) Effective 08/01/2018: PT Reference Range ChangeNew: 11.9-14.2 Previous: 11.7- 14.7RECOMMENDED COUMADIN/WARFARIN INR THERAPY RANGESSTANDARD DOSE: 2.0-3.0 Includes: PROPHYLAXIS for venous thrombosis, systemic embolization; TREATMENT for venous thrombosis and/or pulmonary embolus.HIGH RISK: Target INR is2.5-3.5 for patients wiht mechanical heart valves.CBC with platelet count + automated [id number] 08:22:00 Test Item Value Reference Range Interpretation Comments WBC (test code = 6690-2) 6.4 See_Comment [A utomated message] The system [employer] generated this result transmitted ref erence range: 3.5 - 10 .5 K/L. The refe rence range was not u sed to interpret this result as normal/abnor mal. RBC (test code = 789-8) 4.50 See_Comment [Au tomated message] The system [employer] generated this result transmitted ref erence range: 3.93 - 5 .22 M/L. The refe rence range was not u sed to interpret this result as normal/abnor mal. MCHC (test code = 786-4) 34.0 See_Comment [A utomated message] The system [employer] generated this result transmitted ref erence range: 32.2 - 3 5.5 GM/DL. The refe rence range was not u sed to interpret this result as normal/abnor mal. Hematocrit (test code = 42.9 % 34.1-44.9 4544-3) MCV (test code = 787-2) 95.3 fL 79.4-94.8 H MCH (test code = 785-6) 32.4 pg 25.6-32.2 H RDW (test code = 788-0) 11.7 % 11.7-14.4 Platelets (test code = 232 See_Comment [Aut omated message] 777-3) The system [employer] generated this result transmitted ref erence range: 150 - 45 0 K/CU MM. The referen ce range was not u sed to interpret this result as normal/abnor mal. MPV (test code = 9.9 fL 9.4-12.3 97382-0) nRBC (test code = 413) 0 See_Comment [Aut omated message] The system [employer] generated this result transmitted ref erence range: 0 - 0 /1 00 WBC. The refere nce range was not u sed to interpret this result as normal/abnor mal. % Neutros (test code = 45 % 429) % Lymphs (test code = 35 % 430) % Monos (test code = 13 % 431) % Eos (test code = 432) 7 % % Baso (test code = 437) 1 % # Neutros (test code = 2.85 See_Comment [Aut omated message] 670) The system [employer] generated this result transmitted ref erence range: 1.56 - 6 .13 K/L. The refe rence range was not u sed to interpret this result as normal/abnor mal. # Lymphs (test code = 2.20 See_Comment [Auto mated message] 414) The system [employer] generated this result transmitted ref erence range: 1.18 - 3 .74 K/L. The refe rence range was not u sed to interpret this result as normal/abnor mal. # Monos (test code = 0.81 See_Comment H [Autom ated message] 415) The system [employer] generated this result transmitted ref erence range: 0.24 - 0 .36 K/L. The refe rence range was not u sed to interpret this result as normal/abnor mal. # Eos (test code = 416) 0.45 See_Comment H [Au tomated message] The system [employer] generated this result transmitted ref erence range: 0.04 - 0 .36 K/L. The refe rence range was not u sed to interpret this result as normal/abnor mal. # Baso (test code = 417) 0.05 See_Comment [A utomated message] The system [employer] generated this result transmitted ref erence range: 0.01 - 0 .08 K/L. The refe rence range was not u sed to interpret this result as normal/abnor mal. Immature 0 % 0-1 Granulocytes-Relative (test code = 2801) Lab Interpretation (test Abnormal code = 43996-5) [facility] W/PLT COUNT & AUTO [id number] 08:22:00 Test Item Value Reference Range Interpretation Comments WHITE BLOOD CELL COUNT (BEAKER) 6.4 K/ L 3.5-10.5 (test code = 775) RED BLOOD CELL COUNT (BEAKER) 4.50 M/ L 3.93-5.22 (test code = 761) HEMOGLOBIN (BEAKER) (test code = 14.6 GM/DL 11.2-15.7 410) HEMATOCRIT (BEAKER) (test code = 42.9 % 34.1-44.9 411) MEAN CORPUSCULAR VOLUME (BEAKER) 95.3 fL 79.4-94.8 H (test code = 753) MEAN CORPUSCULAR HEMOGLOBIN 32.4 pg 25.6-32.2 H (BEAKER) (test code = 751) MEAN CORPUSCULAR HEMOGLOBIN CONC 34.0 GM/DL 32.2-35.5 (BEAKER) (test code = 752) RED CELL DISTRIBUTION WIDTH 11.7 % 11.7-14.4 (BEAKER) (test code = 412) PLATELET COUNT (BEAKER) (test 232 K/CU MM 150-450 code = 756) MEAN PLATELET VOLUME (BEAKER) 9.9 fL 9.4-12.3 (test code = 754) NUCLEATED RED BLOOD CELLS 0 /100 WBC 0-0 (BEAKER) (test code = 413) NEUTROPHILS RELATIVE PERCENT 45 % (BEAKER) (test code = 429) LYMPHOCYTES RELATIVE PERCENT 35 % (BEAKER) (test code = 430) MONOCYTES RELATIVE PERCENT 13 % (BEAKER) (test code = 431) EOSINOPHILS RELATIVE PERCENT 7 % (BEAKER) (test code = 432) BASOPHILS RELATIVE PERCENT 1 % (BEAKER) (test code = 437) NEUTROPHILS ABSOLUTE COUNT 2.85 K/ L 1.56-6.13 (BEAKER) (test code = 670) LYMPHOCYTES ABSOLUTE COUNT 2.20 K/ L 1.18-3.74 (BEAKER) (test code = 414) MONOCYTES ABSOLUTE COUNT (BEAKER) 0.81 K/ L 0.24-0.36 H (test code = 415) EOSINOPHILS ABSOLUTE COUNT 0.45 K/ L 0.04-0.36 H (BEAKER) (test code = 416) BASOPHILS ABSOLUTE COUNT (BEAKER) 0.05 K/ L 0.01-0.08 (test code = 417) IMMATURE GRANULOCYTES-RELATIVE 0 % 0-1 PERCENT (BEAKER) (test code = 2801) Basic Metabolic [id number] 14:14:00 Test Item Value Reference Range Interpretation Comments Sodium (test code = 140 meq/L 642-884 3395-2) Potassium (test 4.1 meq/L 3.5-5.1 code = 2823-3) Chloride (test code 102 meq/L 98-107 = 2075-0) CO2 (test code = 28 meq/L 22-29 2027-9) BUN (test code = 13 mg/dL 7-21 3094-0) Creatinine (test 0.79 mg/dL 0.57-1.25 code = 2160-0) Glucose (test code 90 mg/dL 70-105 = 2345-7) Calcium (test code 9.5 mg/dL 8.4-10.2 = 80036-0) EGFR (test code = 73 mL/min/1.73 [place] [address]-7) NOT ACCURATE CREATININE CLEARANCE IN PREDICTING GLOMERULAR FILTRATION RATE . ESTIMATED GFR I S NOT APPLICABLE FOR DIALYSIS PATIEN TS. CHAVES (test code = Energy Broker ID - ANDIE) LUCIANO Tristan [facility] [id number] 14:14:00 Test Item Value Reference Range Interpretation Comments Protein, Total (test 7.8 See_Comment [Autom ated code = 2885-2) message] The system which generated this result transmit ruperto reference range : 6.0 - 8.3 gm/dL . The reference range was not u sed to interpret th is result as normal/abnormal . Albumin (test code = 4.7 g/dL 3.5-5 22929-1) Total Bilirubin (test 0.5 mg/dL 0.2-1.2 code = 1975-2) Bilirubin, Direct 0.2 mg/dL 0.1-0.5 (test code = 1968-7) Alkaline Phosphatase 65 U/L 40-150 (test code = 6768-6) AST (test code = 39 U/L 5-34 H 1920-8) ALT (test code = 30 U/L 6-55 1742-6) ANDIE (test code = ANDIE) Energy Broker ID - LUCIANO Tristan Lab Interpretation Abnormal (test code = 14436-6) [facility] [id number] 14:14:00 Test Item Value Reference Range Interpretation Comments SODIUM (BEAKER) 140 meq/L 136-145 (test code = 381) POTASSIUM (BEAKER) 4.1 meq/L 3.5-5.1 (test code = 379) CHLORIDE (BEAKER) 102 meq/L 98-107 (test code = 382) CO2 (BEAKER) (test 28 meq/L 22-29 code = 355) BLOOD UREA NITROGEN 13 mg/dL 7-21 (BEAKER) (test code = 354) CREATININE (BEAKER) 0.79 mg/dL 0.57-1.25 (test code = 358) GLUCOSE RANDOM 90 mg/dL 70-105 (BEAKER) (test code = 652) CALCIUM (BEAKER) 9.5 mg/dL 8.4-10.2 (test code = 697) EGFR (BEAKER) (test 73 mL/min/1.73 ESTIMA RUPERTO GFR IS code = 1092) sq m NOT ACCURATE CREATININE CLEARANCE IN PREDICTING GLOMERULAR FILTRATION RATE . ESTIMATED GFR I S NOT APPLICABLE FOR DIALYSIS PATIEN TS. Energy Broker ID Anastacia LUCIANO EPATIC FUNCTION [id number] 14:14:00 Test Item Value Reference Range Interpretation Comments TOTAL PROTEIN (BEAKER) (test code = 7.8 gm/dL 6.0-8.3 770) ALBUMIN (BEAKER) (test code = 1145) 4.7 g/dL 3.5-5.0 BILIRUBIN TOTAL (BEAKER) (test code 0.5 mg/dL 0.2-1.2 = 377) BILIRUBIN DIRECT (BEAKER) (test 0.2 mg/dL 0.1-0.5 code = 706) ALKALINE PHOSPHATASE (BEAKER) (test 65 U/L 40-150 code = 346) AST (SGOT) (BEAKER) (test code = 39 U/L 5-34 H 353) ALT (SGPT) (BEAKER) (test code = 30 U/L 6-55 347) Energy Broker SAVANNAH - LUCIANO FPro-time/[id number] 13:51:00 Test Item Value Reference Interpretation Comments Range Protime (test code = 13.9 See_Comment [Autom ated 5902-2) message] The system which generated this result transmitted reference range : 11.9 - 14.2 seconds. The reference range was not used to interpret this result as normal/abnormal . INR (test code = 1.10 See_Comment [Automated 6191-6) message] The system which generated this result transmitted reference range : <=5.90. The reference range was not used to interpret this result as normal/abnormal . ANDIE (test code = Effective 08/01/2018: ANDIE) PT Reference Range ChangeNew: 11.9-14.2 Previous: 11.7-14.7 RECOMMENDED COUMADIN/WARFARIN INR THERAPY RANGESSTANDARD DOSE: 2.0-3.0 Includes: PROPHYLAXIS for venous thrombosis, systemic embolization; TREATMENT for venous thrombosis and/or pulmonary embolus.HIGH RISK: Target INR is 2.5-3.5 for patients wiht mechanical heart valves. Lab Interpretation Normal (test code = 97658-1) [facility]/[id number] 13:51:00 Test Item Value Reference Range Interpretation Comments PROTIME (BEAKER) (test code = 13.9 seconds 11.9-14.2 759) INR (BEAKER) (test code = 370) 1.10 <=5.90 Effective 08/01/2018: PT Reference Range ChangeNew: 11.9-14.2 Previous: 11.7- 14.7RECOMMENDED COUMADIN/WARFARIN INR THERAPY RANGESSTANDARD DOSE: 2.0-3.0 Includes: PROPHYLAXIS for venous thrombosis, systemic embolization; TREATMENT for venous thrombosis and/or pulmonary embolus.HIGH RISK: Target INR is2.5-3.5 for patients wiht mechanical heart valves.CBC W/PLT COUNT & AUTO [id number] 13:31:00 Test Item Value Reference Range Interpretation Comments WHITE BLOOD CELL COUNT (BEAKER) 8.0 K/ L 3.5-10.5 (test code = 775) RED BLOOD CELL COUNT (BEAKER) 4.55 M/ L 3.93-5.22 (test code = 761) HEMOGLOBIN (BEAKER) (test code = 14.6 GM/DL 11.2-15.7 410) HEMATOCRIT (BEAKER) (test code = 44.8 % 34.1-44.9 411) MEAN CORPUSCULAR VOLUME (BEAKER) 98.5 fL 79.4-94.8 H (test code = 753) MEAN CORPUSCULAR HEMOGLOBIN 32.1 pg 25.6-32.2 (BEAKER) (test code = 751) MEAN CORPUSCULAR HEMOGLOBIN CONC 32.6 GM/DL 32.2-35.5 (BEAKER) (test code = 752) RED CELL DISTRIBUTION WIDTH 11.8 % 11.7-14.4 (BEAKER) (test code = 412) PLATELET COUNT (BEAKER) (test 251 K/CU MM 150-450 code = 756) MEAN PLATELET VOLUME (BEAKER) 11.1 fL 9.4-12.3 (test code = 754) NUCLEATED RED BLOOD CELLS 0 /100 WBC 0-0 (BEAKER) (test code = 413) NEUTROPHILS RELATIVE PERCENT 46 % (BEAKER) (test code = 429) LYMPHOCYTES RELATIVE PERCENT 37 % (BEAKER) (test code = 430) MONOCYTES RELATIVE PERCENT 12 % (BEAKER) (test code = 431) EOSINOPHILS RELATIVE PERCENT 4 % (BEAKER) (test code = 432) BASOPHILS RELATIVE PERCENT 1 % (BEAKER) (test code = 437) NEUTROPHILS ABSOLUTE COUNT 3.69 K/ L 1.56-6.13 (BEAKER) (test code = 670) LYMPHOCYTES ABSOLUTE COUNT 3.00 K/ L 1.18-3.74 (BEAKER) (test code = 414) MONOCYTES ABSOLUTE COUNT (BEAKER) 0.92 K/ L 0.24-0.36 H (test code = 415) EOSINOPHILS ABSOLUTE COUNT 0.34 K/ L 0.04-0.36 (BEAKER) (test code = 416) BASOPHILS ABSOLUTE COUNT (BEAKER) 0.06 K/ L 0.01-0.08 (test code = 417) IMMATURE GRANULOCYTES-RELATIVE 0 % 0-1 PERCENT (BEAKER) (test code = 2801) Hepatitis B surface [id number] 16:11:00 Test Item Value Reference Range Interpretation Comments Hepatitis B Surf 65.7 See_Comment Status of Ab Quant (test Immunity code = 47681-7) Ant i-HBs Level --- I ncon sistent with Immunity 0.0 - 9.9Consistent w ith Immunity > 9.9 [Automated mess age] The system [employer] generated this result transmit ruperto reference range : Immunity>9 mIU/ mL. The reference r jony was not used to interpret this result as normal/abnormal . ANDIE (test code = Performed at: ANDIE) - [facility] [id number] Director: Dante Aguirre MD, Phone: [phone] [facility] core antibody, [id number] 16:11:00 Test Item Value Reference Range Interpretation Comments Hep B Core Ab, Tot (test Positive Negative A code = 34019-9) ANDIE (test code = ANDIE) Performed at: 02 - [facility] [address] [id number] Director: Dante Aguirre MD, Phone: [phone] Lab Interpretation (test Abnormal code = 47246-5) [facility] Viral DNA, quant [id number] 16:11:00 Test Item Value Reference Range Interpretation Comments HBV as IU/mL (test HBV DNA not IU/mL code = 6864645) detected log10 HBV as IU/mL CANCELED log10 IU/mL Unable to calculate (test code = result since 20121015) non-numeric res ult obtained forcomponent ramez st. Result canceled by the ancillary. Test Information Comment The reporta ble (test code = range for this 20111112) assay is 10 IU/ mL to 1 billion IU /mL. ANDIE (test code = Performed at: 01 ANDIE) - [facility] [address] [id number] Director: Percy Vale MD, Phone: [phone] [facility] with platelet count + automated [id number] 08:36:00 Test Item Value Reference Range Interpretation Comments WBC (test code = 6.2 See_Comment [Automated ) message] The system which generated this result transmit ruperto reference range : 3.4 - 10.8 x10E3/uL. The reference range was not used to interpret this result as normal/abnormal . RBC (test code = 4.29 See_Comment [Automated 605-3) message] The system which generated this result transmit ruperto reference range : 3.77 - 5.28 x10E6/uL. The reference range was not used to interpret this result as normal/abnormal . Hemoglobin (test 14.1 g/dL 11.1-15.9 code = ) Hematocrit (test 41.2 % 34-46.6 code = ) MCV (test code = 96 fL 79-97 ) MCH (test code = 32.9 pg 26.6-33 ) MCHC (test code = 34.2 g/dL 31.5-35.7 ) RDW (test code = 11.8 % 11.7-15.4 ) Platelets (test 241 See_Comment [Automated code = ) message] The system which generated this result transmit ruperto reference range : 150 - 450 x10E3/uL. The reference range was not used to interpret this result as normal/abnormal . % Neutros (test 42 % Not Estab. code = ) % Lymphs (test 38 % Not Estab. code = ) % Monos (test code 12 % Not Estab. = ) % Eos (test code = 7 % Not Estab. 5635933) % Baso (test code 1 % Not Estab. = ) # Neutros (test 2.6 See_Comment [Automated code = ) message] The system which generated this result transmit ruperto reference range : 1.4 - 7.0 x10E3/uL. The reference range was not used to interpret this result as normal/abnormal . # Lymphs (test 2.4 See_Comment [Automated code = ) message] The system which generated this result transmit ruperto reference range : 0.7 - 3.1 x10E3/uL. The reference range was not used to interpret this result as normal/abnormal . # Monos (test code 0.7 See_Comment [Automat ed = ) message] The system which generated this result transmit ruperto reference range : 0.1 - 0.9 x10E3/uL. The reference range was not used to interpret this result as normal/abnormal . # Eos (test code = 0.4 See_Comment [Automat ed ) message] The system which generated this result transmit ruperto reference range : 0.0 - 0.4 x10E3/uL. The reference range was not used to interpret this result as normal/abnormal . Baso (Absolute) 0.1 See_Comment [Automated (test code = message] The ) system which generated this result transmit ruperto reference range : 0.0 - 0.2 x10E3/uL. The reference range was not used to interpret this result as normal/abnormal . % Immature Grans 0 % Not Estab. (test code = ) # Immature Grans 0.0 See_Comment [Automated (test code = message] The ) system which generated this result transmit ruperto reference range : 0.0 - 0.1 x10E3/uL. The reference range was not used to interpret this result as normal/abnormal . ANDIE (test code = Performed at: ANDIE) - [facility] [address] [id number] Director: Dante Aguirre MD, Phone: [phone] [facility] [id number] 09:39:00Surgical Pathology Report Case: [id number] Authorizing Provider: Bhavin Elam MD Collected: 10/07/2019 10:26 AM Ordering Location: [facility] Received: 10/07/2019 02:15 PM SERVICES Pathologist: Joy Teixeira MD Specimens: A) - Duodenal, random biopsies B) -Stomach, random biopsies C) - Biopsy, Gastroesophageal Junction, random biopsies D) - Distal Esophagus, random biopsies E) - ProximalEsophagus, random biopsies F) - Polyp, Colon - Right/Ascending G) - Polyp, Colon -Left/Descending Block B: Gastric: Warthin-starry stain was performed which is negative for H. Pylori-like organisms.[id number] electronically signed by Jyo Teixeira MD on 10/14/2019 at 9:39 AMA. DUODENUM, RANDOM BIOPSY: - DUODENAL MUCOSA WITH PRESERVED VILLOUS ARCHITECTURE WITH MILD INCREASE IN CHRONIC INFLAMMATION IN THE LAMINA PROPRIA WITH FOVEOLAR METAPLASIA SUGGESTIVE OF PEPTIC DUODENITISB. STOMACH, RANDOM BIOPSY: - GASTRIC ANTRUM TYPE MUCOSA WITH REACTIVE GASTROPATHY - GASTRIC BODY TYPE MUCOSA WITH NO SIGNIFICANT HISTOPATHOLOGICAL CHANGE - NEGATIVE FOR H. PYLORI ON ROUTINE STAINC. GASTROESOPHAGEAL JUNCTION, RANDOM BIOPSY: - GASTRIC CARDIAC TYPE MUCOSA WITH CHRONIC INACTIVE CARDITIS - NEGATIVE FOR INTESTINALMETAPLASIA OR DYSPLASIA - NO SQUAMOUS EPITHELIUM IDENTIFIEDD. DISTAL ESOPHAGUS, BIOPSY: - ESOPHAGEAL SQUAMOUS MUCOSA WITH MILD BASAL CELL HYPERPLASIA AND REACTIVE CHANGES - NO INCREASE IN INTRAEPITHELIAL EOSINOPHILS NOTED E. PROXIMAL ESOPHAGUS, BIOPSY: - ESOPHAGEAL SQUAMOUS MUCOSA WITH MILDINCREASE IN INTRAEPITHELIAL LYMPHOCYTES - SEE COMMENTF. RIGHT ASCENDING COLON POLYP X2, COLD SNAREPOLYPECTOMY: : - TUBULAR ADENOMA, 2 FRAGMENTSG. LEFT DESCENDING COLON POLYP X2, COLD SNARE POLYPECTOMY: - TUBULAR [id number] Signing Pathologist Direct Phone Line: [phone] signed by Joy Teixeira MD on 10/09/2019 at 9:48 AMPart D-E- Mild basal cell hyperplasia with increase chronic inflammation are nonspecific findings and can be associated with reflux. Other differential includes achalasia, medications such as gold, thiazides, and antimalarials, adjacent to esophageal ulcer sites secondary to infectious or pill-induced esophagitis or systemic disease e.g. Lichen planus or Crohn's disease. Clinical correlation is recommended. No increase in intraepithelial eosinophils is noted.[id number] diagnosis: Dyspepsia, screening for colon cancer.A. Duodenal, description random biopsiesB. Stomach, description random biopsiesC. Gastroesophageal junction, descriptionrandom biopsiesD. Distal esophagus, description random biopsies E. Proximal esophagus random biopsiesF. Colon polyp right/ascending G. Colon polyp left/descendingThese are 7 specimens received in 7 different parts labeled with the patient's name and MR number corresponding to the requisition with the same information.Part A. Received in formalin labeled "duodenal" are five swift-pink spherical to irregular pieces of tissue ranging because 0.2 cm to 0.3 cm and are 0.5 x 0.4 x 0.4 cm in aggregate. The specimen is filtered entirely in a cassette A1.Part B. Received in formalin labeled "stomach" consistsof four swift-pink irregular pieces of tissue measuring 0.3 cm, 0.3 cm, 0.2 cm and 0.1 cm in greatest dimension. The specimen is filtered entirely in cassette B1.Part C. Received in formalin labeled "gastroesophageal junction biopsy" is a 0.3 x 0.2 x 0.2 cm swift irregular piece of tissue, which is submitted entirely in cassette C1. Part D. Received in formalin labeled "distal esophagus" consists of three swift irregular minutes pieces of tissue measuring 0.2 cm, 0.3 cm and 0.1 cm in greatest dimension. The specimen is filtered entirely in cassette D1.Part E. Received in formalin labeled "proximal esophagus" are three swift irregular to membranous pieces of tissue measuring 0.2 cm, 0.3 cm and 0.3 cm in greatest dimension each. The specimen is filtered entirely in cassette E1.Part F. Received in formalin labeled "polyp, colon-right/ascending" are multiple swift- pink to brown to green, spherical to membranous to flat pieces of tissue ranging between 0.1 cm to 0.4 cm in greatest dimension. The specimen is filtered entirely in cassette F1.Part G. Received in formalin labeled "polyp, colon- left/descending" consists of multiple swift-pink irregular to flat membranous pieces of tissue ranging between less than 0.1 cm to 0.4 cm in greatest dimension. The specimen is filtered entirely in cassette G1. AGNES/veena The interpretation of this case included the use of immunohistochemistry or special stains.Control Slides Examined: In-house known positive controls were evaluated along with the test tissue. These control slides run alongside of the patients sample show appropriate staining. Internal positive and negative controls when available are evaluated Immunohistochemistry technical testing was performed at [facility], Pathology Laboratory where it was developed and its performance characteristics were determined. It has not been cleared or approved by the U.S. Food and Drug Administration. The FDA has determined that such clearance or approval is not necessary. The test is used for clinical purposes. It should not be regarded as investigational or for research. This laboratory is certified under the Clinical Laboratory Improvement Amendments of 1988 (CLIA-88) as qualified to perform high complexity clinical laboratory testing.U/S, ABDOMINAL, [id number] 10:02:00Referring: Self (old/new, saw Dr. Conteh 18 yrs ago)Reason for Exam:->Chronic hepatitis C - evaluate for cirrhosis and portal hypertensionFINAL REPORT HISTORY:Chronic hepatitis C - evaluate for cirrhosis and portal h ypertension COMPARISON:None. TECHNIQUE:Ultrasound examination of the abdomen was performed with spectral and color Doppler imaging. FINDINGS: Liver: The liver is normal in size with increased echogenicity. No focal lesions. The main portal vein measures 0.8 cm.Biliary: No stones. No sludge, pericholecystic fluid or wall thickening. Negative sonographic Ramirez's sign. Common bile duct measures 0.4 cm. No intrahepatic biliary ductal dilatation.Spleen: No splenomegaly.Pancreas: Visualized portions areunremarkable. Kidneys: The kidneys are normal in size without hydronephrosis nor sonographically evident solid mass lesion.Midline Vessels: Visualized portions of the IVC and aorta are unremarkable.Peritoneum: No free fluid. IMPRESSION: Echogenic liver, may be secondary to cirrhosis.No sonographicallyevident hepatic mass. Signed: Jah Montero MDReport Verified Date/Time: 08/01/2019 10:02:14 Reading Location: [facility] Radiology Reading Room US abdomen [id number] 10:02:00Interface, External Ris In - 08/01/2019 10:04 AM CDTFINAL REPORT HISTORY:Chronic hepatitis C - evaluate for cirrhosis and portal hypertension COMPARISON:None. TECHNIQUE:Ultrasound examination of the abdomen was performed with spectral and color Doppler imaging. FINDINGS: Liver: The liver is normal in size with increased echogenicity. No focal lesions. The main portal vein measur es 0.8 cm.Biliary: No stones. No sludge, pericholecystic fluid or wall thickening. Negative sonographic Ramirez's sign. Common bile duct measures 0.4 cm. No intrahepatic biliary ductal dilatation.Spleen: No splenomegaly.Pancreas: Visualized portions are unremarkable. Kidneys: The kidneys are normal insize without hydronephrosis nor sonographically evident solid mass lesion.Midline Vessels: Visualized portions of the IVC and aorta are unremarkable.Peritoneum: No free fluid. IMPRESSION: Echogenic liver, may be secondary to cirrhosis.No sonographically evident hepatic mass. Signed: Jah Montero MDReport Verified Date/Time: 08/01/2019 10:02:14 Reading Location: [facility] 17:05:00 Test Item Value Reference Range Interpretation Comments Ceruloplasmin (test code 31 mg/dL 18-53 = 5038095) ANDIE (test code = ANDIE) Performing Lab *KIKI [place] [facility], [address] [place] [id number] Anselmo Forrest MD, PhD [facility] (MARY)2019-07-25 13:52:00 Test Item Value Reference Range Interpretation Comments MARY (test code = 42647-8) Positive Negative A ANDIE (test code = ANDIE) Test performed by IFA method. Lab Interpretation (test Abnormal code = 93173-5) [facility] Titer & [id number] 13:52:00 Test Item Value Reference Range Interpretation Comments MARY Titer (test code = 90860-0) 1:160 MARY Pattern (test code = 1781) Homogeneous [facility]I-NUCLEAR ANTIBODY (MARY)2019-07-25 13:52:00 Test Item Value Reference Range Interpretation Comments ANTI-NUCLEAR ANTIBODY (MARY) (BEAKER) Positive Negative A (test code = 418) Test performed by IFA method.MARY TITER AND [id number] 13:52:00 Test Item Value Reference Range Interpretation Comments MARY TITER (BEAKER) (test code = :160 1541) MARY PATTERN (BEAKER) (test code = Homogeneous 1781) Actin (Smooth Muscle) Antibody, [id number] 20:48:00 Test Item Value Reference Interpretation Comments Range Anti-Smooth Muscle 39 U See Note: H Reference Range:<20 Ab (test code = NEGATI VE> OR ) = 20 POSITIVE Antibodies recognizing act in are the main componentof smo oth muscle antibodi es associated withautoimmune liver disease. Actin antibodie s arefound in approximately 7 5% of patients withautoimmune hepatitis (AIH) type 1, kxgdaghhrarzz48 % of patients with autoimmune cholangitis,ramsey tulio mately 30% of patients with primary biliarycirrhosi s, and approximate ly 2% of healthy people.High kiki ues are closely correlated with AIH type 1. ANDIE (test code = Performing Lab ANDIE) [facility] [place] [id number] MD, PhD, GABRIELLE Lab Interpretation Abnormal (test code = 16845-2) [facility]ochond[facility] Antibodies, [id number] 16:28:00 Test Item Value Reference Range Interpretation Comments Mitochondria M2 Ab 27.7 U See Note: H Reference (test code = 1307449) Range: NEGATIVE: < OR = 20.0EQUIVOCAL: 20.1-24.9POSITI VE: > OR = 25.0 ANDIE (test code = ANDIE) Performing Lab EZ [facility] [address] [place] [address] MD, PhD, GABRIELLE Lab Interpretation Abnormal (test code = 95621-3) [facility]ritin2020-05-19 09:26:00 Test Item Value Reference Range Interpretation Comments Ferritin (test code = 154.50 ng/mL 5-275 2276-4) ANDIE (test code = ANDIE) [employer]ker ID Anastacia WOLF F Lab Interpretation (test Normal code = 55407-8) [facility]ERRITIN2020-05-19 09:26:00 Test Item Value Reference Range Interpretation Comments FERRITIN (BEAKER) (test code = 154.50 ng/mL 5.00-275.00 361) [employer] Broker ID Anastacia WOLF FHepatitis C RNA, [id number] 20:12:00 Test Item Value Reference Range Interpretation Comments HCV PCR, Quantitative HCV RNA not detected HCV RNA not (test code = 06658-2) detected ANDIE (test code = ANDIE) This test uses a Real-Time Polymerase Chain Reaction (RT-PCR) methodology and was performed using JABIER Ampliprep/JABIER TaqMan HCV test kit version 2.0 (Carlos [employer]). Reportable range for this assay is 15 - 100,000,000 IU per mL (1.18 - 8.00 Log IU/mL). Lab Interpretation Normal (test code = 76607-2) [facility] C PCR, [id number] 20:12:00 Test Item Value Reference Range Interpretation Comments HCV RESULT COMPONENT HCV RNA not detected HCV RNA not detected (BEAKER) (test code = 2699) This test uses a Real-Time Polymerase Chain Reaction (RT-PCR) methodology and was performed using JABIER Ampliprep/JABIER TaqMan HCV test kit version 2.0 (Carlos [employer]).Reportable range for this assay is 15 - 100,000,000 IU per mL (1.18 - 8.00 Log IU/mL).Hepatitis A antibody, IgG 2019-07-22 13:12:00 Test Item Value Reference Range Interpretation Comments Hep A IgG (test code = Reactive Nonreactive A 83482-1) ANDIE (test code = ANDIE) Energy Broker ID Anastacia WOLF F Lab Interpretation (test Abnormal code = 25301-9) [facility] A ANTIBODY, [id number] 13:12:00 Test Item Value Reference Range Interpretation Comments HEPATITIS A IGG ANTIBODY (BEAKER) Reactive Nonreactive A (test code = 2797) [employer] Broker ID Anastacia WOLF FHEPATITIS B CORE ANTIBODY, [id number] 13:12:00 Test Item Value Reference Range Interpretation Comments HEPATITIS B CORE TOTAL ANTIBODY Reactive Nonreactive A (BEAKER) (test code = 497) Energy Broker ID - LUCIANO FHEPATITIS B SURFACE [id number] 13:12:00 Test Item Value Reference Range Interpretation Comments HEPATITIS B SURFACE ANTIBODY < mIU/mL <8.0 (BEAKER) (test code = 647) Energy Broker ID Anastacia WOLF FHepatitis B surface [id number] 13:11:00 Test Item Value Reference Range Interpretation Comments HBsAg Screen (test code Nonreactive Nonreactive = 5195-3) ANDIE (test code = ANDIE) Specimen is considered negative for HBsAg. Lab Interpretation (test Normal code = 71882-6) [facility]AT[facility] SURFACE [id number] 13:11:00 Test Item Value Reference Range Interpretation Comments HEPATITIS B SURFACE ANTIGEN (2) Nonreactive Nonreactive (BEAKER) (test code = 2585) Specimen is considered negative for HBsAg.Immunoglobulin G (IgG)2019-07-22 12:56:00 Test Item Value Reference Range Interpretation Comments IgG (test code = 2465-3) 1109 mg/dL 540-1822 ANDIE (test code = ANDIE) Energy Broker ID Anastacia Tristan Lab Interpretation (test Normal code = 46828-3) [facility], TIBC, % sat. (without ferritin)2019-07-22 12:56:00 Test Item Value Reference Range Interpretation Comments Iron (test code = 2498-4) 102.0 ug/dL 40-160 TIBC (test code = 2500-7) 391 ug/dL 250-450 Iron % Saturation (test 26 % 20-55 code = 2502-3) ANDIE (test code = ANDIE) Energy Broker ID Anastacia Tristan Lab Interpretation (test Normal code = 36448-3) [facility]MUN[facility]GLOBULIN G (IGG)2019-07-22 12:56:00 Test Item Value Reference Range Interpretation Comments IMMUNOGLOBULIN G (IGG) (BEAKER) 1109 mg/dL 540-1,822 (test code = 427) Energy Broker ID Anastacia WOLF FIRON, TIBC, % SAT. (WITHOUT FERRITIN)2019-07-22 12:56:00 Test Item Value Reference Range Interpretation Comments IRON (BEAKER) (test code = 547) 102.0 ug/dL 40.0-160.0 TOTAL IRON BINDING CAPACITY 391 ug/dL 250-450 (BEAKER) (test code = 769) IRON % SATURATION (2) (BEAKER) 26 % 20-55 (test code = 2590) Energy Broker ID Anastacia WOLF FComprehensive Metabolic [id number] 12:51:00 Test Item Value Reference Range Interpretation Comments Protein, Total (test 8.1 See_Comment [Autom ated code = 2885-2) message] The system which generated this result transmit ruperto reference range : 6.0 - 8.3 gm/dL . The reference range was not u sed to interpret th is result as normal/abnormal . Albumin (test code = 4.8 g/dL 3.5-5 66118-0) Alkaline Phosphatase 68 U/L 40-150 (test code = 6768-6) Total Bilirubin (test 0.4 mg/dL 0.2-1.2 code = 1974-2) Sodium (test code = 139 meq/L 221-143 6711-2) Potassium (test code 3.5 meq/L 3.5-5.1 = 2823-3) Chloride (test code = 102 meq/L 98-107 2075-0) CO2 (test code = 29 meq/L 22-29 8-9) BUN (test code = 11 mg/dL 7-21 3094-0) Creatinine (test code 0.84 mg/dL 0.57-1.25 = 2160-0) Glucose (test code = 90 mg/dL 70-105 2345-7) Calcium (test code = 10.0 mg/dL 8.4-10.2 19429-1) AST (test code = 64 U/L 5-34 H 1920-8) ALT (test code = 46 U/L 6-55 1742-6) EGFR (test code = 68 mL/min/1.73 [place] [address]-9) NOT ACCURATE CREATININE CLEARANCE IN PREDICTING GLOMERULAR FILTRATION RATE . ESTIMATED GFR I S NOT APPLICABLE FOR DIALYSIS PATIEN TS. ANDIE (test code = ANDIE) Energy Broker ID - LUCIANO Tristan Lab Interpretation Abnormal (test code = 94056-3) [facility], [id number] 12:51:00 Test Item Value Reference Range Interpretation Comments Bilirubin, Direct (test 0.2 mg/dL 0.1-0.5 code = 1967-09) ANDIE (test code = ANDIE) Energy Broker ID - LUCIANO F Lab Interpretation (test Normal code = 48883-0) [facility]PREHENSIVE METABOLIC [id number] 12:51:00 Test Item Value Reference Range Interpretation Comments TOTAL PROTEIN 8.1 gm/dL 6.0-8.3 (BEAKER) (test code = 770) ALBUMIN (BEAKER) 4.8 g/dL 3.5-5.0 (test code = 1145) ALKALINE PHOSPHATASE 68 U/L 40-150 (BEAKER) (test code = 346) BILIRUBIN TOTAL 0.4 mg/dL 0.2-1.2 (BEAKER) (test code = 377) SODIUM (BEAKER) (test 139 meq/L 136-145 code = 381) POTASSIUM (BEAKER) 3.5 meq/L 3.5-5.1 (test code = 379) CHLORIDE (BEAKER) 102 meq/L 98-107 (test code = 382) CO2 (BEAKER) (test 29 meq/L 22-29 code = 355) BLOOD UREA NITROGEN 11 mg/dL 7-21 (BEAKER) (test code = 354) CREATININE (BEAKER) 0.84 mg/dL 0.57-1.25 (test code = 358) GLUCOSE RANDOM 90 mg/dL 70-105 (BEAKER) (test code = 652) CALCIUM (BEAKER) 10.0 mg/dL 8.4-10.2 (test code = 697) AST (SGOT) (BEAKER) 64 U/L 5-34 H (test code = 353) ALT (SGPT) (BEAKER) 46 U/L 6-55 (test code = 347) EGFR (BEAKER) (test 68 mL/min/1.73 ESTIMA RUPERTO GFR IS code = 1092) sq m NOT ACCURATE CREATININE CLEARANCE IN PREDICTING GLOMERULAR FILTRATION RATE . ESTIMATED GFR I S NOT APPLICABLE FOR DIALYSIS PATIEN TS. Energy Broker ID Anastacia WOLF FBILIRUBIN, [id number] 12:51:00 Test Item Value Reference Range Interpretation Comments BILIRUBIN DIRECT (BEAKER) (test 0.2 mg/dL 0.1-0.5 code = 706) Energy Broker SAVANNAH WOLF [id number] 12:41:00 Test Item Value Reference Range Interpretation Comments A-1 Antitrypsin (test code 161.80 mg/dL 90-200 = 1825-9) ANDIE (test code = ANDIE) Energy Broker ID Anastacia WOLF F Lab Interpretation (test Normal code = 70228-5) [facility]-1-[id number] 12:41:00 Test Item Value Reference Range Interpretation Comments ALPHA-1 ANTITRYPSIN (BEAKER) 161.80 mg/dL 90.00-200.00 (test code = 502) Energy Broker SAVANNAH WOLF FCBC W/PLT COUNT & AUTO [id number] 12:20:00 Test Item Value Reference Range Interpretation Comments WHITE BLOOD CELL COUNT (BEAKER) 8.8 K/ L 3.5-10.5 (test code = 775) RED BLOOD CELL COUNT (BEAKER) 4.54 M/ L 3.93-5.22 (test code = 761) HEMOGLOBIN (BEAKER) (test code = 14.7 GM/DL 11.2-15.7 410) HEMATOCRIT (BEAKER) (test code = 43.5 % 34.1-44.9 411) MEAN CORPUSCULAR VOLUME (BEAKER) 95.8 fL 79.4-94.8 H (test code = 753) MEAN CORPUSCULAR HEMOGLOBIN 32.4 pg 25.6-32.2 H (BEAKER) (test code = 751) MEAN CORPUSCULAR HEMOGLOBIN CONC 33.8 GM/DL 32.2-35.5 (BEAKER) (test code = 752) RED CELL DISTRIBUTION WIDTH 12.3 % 11.7-14.4 (BEAKER) (test code = 412) PLATELET COUNT (BEAKER) (test 246 K/CU MM 150-450 code = 756) MEAN PLATELET VOLUME (BEAKER) 10.6 fL 9.4-12.3 (test code = 754) NUCLEATED RED BLOOD CELLS 0 /100 WBC 0-0 (BEAKER) (test code = 413) NEUTROPHILS RELATIVE PERCENT 47 % (BEAKER) (test code = 429) LYMPHOCYTES RELATIVE PERCENT 36 % (BEAKER) (test code = 430) MONOCYTES RELATIVE PERCENT 11 % (BEAKER) (test code = 431) EOSINOPHILS RELATIVE PERCENT 5 % (BEAKER) (test code = 432) BASOPHILS RELATIVE PERCENT 1 % (BEAKER) (test code = 437) NEUTROPHILS ABSOLUTE COUNT 4.09 K/ L 1.56-6.13 (BEAKER) (test code = 670) LYMPHOCYTES ABSOLUTE COUNT 3.18 K/ L 1.18-3.74 (BEAKER) (test code = 414) MONOCYTES ABSOLUTE COUNT (BEAKER) 0.93 K/ L 0.24-0.36 H (test code = 415) EOSINOPHILS ABSOLUTE COUNT 0.46 K/ L 0.04-0.36 H (BEAKER) (test code = 416) BASOPHILS ABSOLUTE COUNT (BEAKER) 0.08 K/ L 0.01-0.08 (test code = 417) IMMATURE GRANULOCYTES-RELATIVE 0 % 0-1 PERCENT (BEAKER) (test code = 2801) SCR MAMM BILATERAL BHARTI CAD [id number] 10:37:21 - SCR MAMM BILATERAL BHARTI CAD DIGITALBILATERAL DIGITAL SCREENING MAMMOGRAM 3D/2D WITH CAD: 10/22/2018 CLINICAL: Asymptomatic. Digital breast tomosynthesis was performed in addition to routine CC and MLO views. Current mammographic images were evaluated by either a SKINNYprice M-Vu or an MovableInk version 7.2 computer aided detection system. No prior exams were available for comparison. There are scattered fibroglandular tissues in both breasts. No suspicious mass, architectural distortion, malignant type calcification, or lymph node abnormality detected. IMPRESSION: INCOMPLETE ASSESSMENT: ADDITIONAL IMAGING EVALUATION RECOMMENDEDThere is no mammographic evidence of malignancy. However, the right CC view demonstrates mild motion and must be repeated for this technical issue.Christa Broussard M.D. cc/:11/07/2018 10:37:21 Entry: - 11/09/2018 13:20:57Attending Technologist: Ching Mcgowan MM, [employer] Mobile MammographyImaging Technologist: Aleta Julio MM, [employer] Mobile Mammographyletter sent: Additional Imaging Mammogram BI- RADS: 0 IndeterminateTISSUE [id number] 08:41:00Surgical Pathology Report Case: [id number] Authorizing Provider: Sandeep Ramos Collected: 10/04/2017 1110 MD Wilda [facility] Received: 10/04/2017 1417 SERVICES Pathologist: Bruno Galan MD Specimen: Condyle,Left Knee PART A LEFT KNEE CONDYLE, ARTHROPLASTY:OSTEOARTHRITIC CHANGES IN BONE AND CARTILAGE.REACTIVE SYNOVIAL TISSUE. Signing Pathologist Direct Phone Line: [phone] signed by Bruno Galan MD on 10/13/2017 at 8:41 [id number], [id number] osteoarthritis of left kneeLeft knee condyleThe specimen is received in a fluidless container labeled with patient information and labeled "left knee condyle" andconsists of multiple fragments of swift knee bone and soft tissue measuring 6 x 6 x 2 cm in aggregate.Bone fragments have distinct osteophyte formation with focal areas of eburnation. Section code: A1 and A2, bone submitted for decalcification; A3, soft tissue and bone submitted for decalcification. CG/pl PERFORMED.BASIC METABOLIC [id number] 05:02:00 Test Item Value Reference Range Interpretation Comments SODIUM (BEAKER) 135 meq/L 136-145 L (test code = 381) POTASSIUM (BEAKER) 4.0 meq/L 3.5-5.1 (test code = 379) CHLORIDE (BEAKER) 104 meq/L 98-107 (test code = 382) CO2 (BEAKER) (test 24 meq/L 22-29 code = 355) BLOOD UREA NITROGEN 10 mg/dL 7-21 (BEAKER) (test code = 354) CREATININE (BEAKER) 0.79 mg/dL 0.57-1.25 (test code = 358) GLUCOSE RANDOM 112 mg/dL 70-105 H (BEAKER) (test code = 652) CALCIUM (BEAKER) 9.1 mg/dL 8.4-10.2 (test code = 697) EGFR (BEAKER) (test 73 mL/min/1.73 ESTIMA RUPERTO GFR IS code = 1092) sq m NOT ACCURATE CREATININE CLEARANCE IN PREDICTING GLOMERULAR FILTRATION RATE . ESTIMATED GFR I S NOT APPLICABLE FOR DIALYSIS PATIEN TS. HEMOGLOBIN AND [id number] 04:44:00 Test Item Value Reference Range Interpretation Comments HEMOGLOBIN (BEAKER) (test code = 11.0 GM/DL 11.2-15.7 L 410) HEMATOCRIT (BEAKER) (test code = 33.6 % 34.1-44.9 L 411) RAD, KNEE, 1 OR 2 VIEWS, [id number] 13:01:00STAT in PACUReason for exam:- >S/p left TKAShould this be performed at the bedside?->YesFINAL REPORT Left knee 2 views 10/04/2017 1:00 PM CLINICAL HISTORY: Postop COMPARISON: None available IMPRESSION: Hardware and bone alignment are satisfactory status post left total knee arthroplasty. No periprosthetic fracture is evident. There is evidence for prior hardware placement in the left femur. Signed: Mack Fraustoeport Verified Date/Time: 10/04/2017 13:01:24 Reading Location: [facility] C013V Neuro Reading Room PT/[id number] 13:50:00 Test Item Value Reference Range Interpretation Comments PROTIME (BEAKER) (test code = 14.1 seconds 11.7-14.7 759) INR (BEAKER) (test code = 370) 1.1 <=5.9 PARTIAL THROMBOPLASTIN TIME 29.2 seconds 22.5-36.0 (BEAKER) (test code = 760) RECOMMENDED COUMADIN/WARFARIN INR THERAPY RANGESSTANDARD DOSE: 2.0 - 3.0 Includes: PROPHYLAXIS forvenous thrombosis, systemic embolization; TREATMENT for venous thrombosis and/or pulmonary embolus.HIGH RISK: Target INR is 2.5-3.5 for patients with mechanical heart valves.AST (SGOT)2017-09-20 13:49:00 Test Item Value Reference Range Interpretation Comments AST (SGOT) (BEAKER) (test code = 353) 53 U/L 5-34 H ALKALINE [id number] 13:46:00 Test Item Value Reference Range Interpretation Comments ALKALINE PHOSPHATASE (BEAKER) (test 54 U/L 40-150 code = 346) [id number] 13:46:00 Test Item Value Reference Range Interpretation Comments SODIUM (BEAKER) (test code = 381) 138 meq/L 136-145 POTASSIUM (BEAKER) (test code = 3.8 meq/L 3.5-5.1 379) CHLORIDE (BEAKER) (test code = 382) 102 meq/L 98-107 CO2 (BEAKER) (test code = 355) 28 meq/L 22-29 BUN AND [id number] 13:46:00 Test Item Value Reference Range Interpretation Comments BLOOD UREA NITROGEN 11 mg/dL 7-21 (BEAKER) (test code = 354) CREATININE (BEAKER) 0.79 mg/dL 0.57-1.25 (test code = 358) EGFR (BEAKER) (test 73 mL/min/1.73 ESTIMA RUPERTO GFR IS code = 1092) sq m NOT ACCURATE CREATININE CLEARANCE IN PREDICTING GLOMERULAR FILTRATION RATE . ESTIMATED GFR I S NOT APPLICABLE FOR DIALYSIS PATIEN TS. [id number] 13:29:00 Test Item Value Reference Range Interpretation Comments HEMOGLOBIN (BEAKER) (test code = 13.4 GM/DL 11.2-15.7 410) PLATELET [id number] 13:29:00 Test Item Value Reference Range Interpretation Comments PLATELET COUNT (BEAKER) (test 231 K/CU MM 150-450 code = 756)
[2020-07-09] MEDS ORDERED: FENTANYL CITR 100 MCG/2 ML ONE ×2 (12:43→15:01)
[2020-07-09] MEDS ORDERED: CLINDAMYCIN 900MG/D5W 900 MG/50 ML IVPB IV ONE (12:43)
[2020-07-09] MEDS ORDERED: ONDANSETRON 4 MG/2 ML VIAL ONE ×2 (12:43→15:02)
[2020-07-09] MEDS ORDERED: NA CHLORIDE 0.9% 2,000 ML ONE (12:44)
[2020-07-09] MEDS ORDERED: Levofloxacin 750mg IV 750 MG/150 ML BAG IV ONE (12:44)
[2020-07-09 12:50] LABS: Urine Blood Trace-intact (Negative); Urine Glucose Negative (Negative); Urine Protein Negative (Negative); Urine Specific Gravity 1.015 (1.005-1.030); Urine pH 6.5 (5.0-7.0)
--- NOTE | 2020-07-09 13:02 | ER ---
Nurse's Notes [facility] Name[facility] Isamar [facility] Age: 70 yrs Sex: Female : 1950 Arrival Date: 07/09/2020 Time: 11:23 Bed 16 Private MD: Ginny Malloy Diagnosis: Cutaneous abscess of buttock;Cutaneous abscess of abdominal wall Presentation: 07/09 11:24 Chief complaint: Patient states: Hysterectomy June 17, pt states "I had a couple aa5 incision sites that got red and infected so the doctor put me on Clindamycin". Pt reports boil to groin area that is now spreading. 11:24 Coronavirus screen: At this time, the client does not indicate any symptoms associated aa5 with coronavirus-19. Ebola Screen: Patient negative for fever greater than or equal to 101.5 degrees Fahrenheit, and additional compatible Ebola Virus Disease symptoms. Initial Sepsis Screen: Does the patient meet any 2 criteria? No. Patient's initial sepsis screen is negative. Does the patient have a suspected source of infection? No. Patient's initial sepsis screen is negative. Risk Assessment: Do you want to hurt yourself or someone else? Patient reports no desire to harm self or others. Onset of symptoms was July 2020. 11:24 Acuity: LOLIS 3 aa5 11:24 Method Of Arrival: Ambulatory aa5 Historical: - Allergies: 11:45 Codeine; aa5 11:45 dermabond; aa5 - PMHx: 11:45 Hep C; Hypertension; Thyroid problem; Hyperlipidemia; aa5 - PSHx: 11:45 shoulder; Knee surgery; aa5 - Immunization history:: Adult Immunizations unknown. - Social history:: Smoking status: Patient reports the use of cigarette tobacco products, denies chronic smoking, but will smoke occasionally. - Family history:: not pertinent. Screenin:50 Abuse screen: Denies threats or abuse. Nutritional screening: No deficits noted. ap3 Tuberculosis screening: No symptoms or risk factors identified. Fall Risk None identified. Assessment: 11:47 General: Appears in no apparent distress. comfortable, Behavior is calm, cooperative, ap3 appropriate for age. Pain: Complains of pain in groin Pain began 2-3 days ago. Neuro: Level of Consciousness is awake, alert, obeys commands, Oriented to person, place, time, situation. Cardiovascular: Reports None. Respiratory: Airway is patent Respiratory effort is even, unlabored, Respiratory pattern is regular, symmetrical. GI: No signs and/or symptoms were reported involving the gastrointestinal system. : Swelling noted on labia. EENT: No signs and/or symptoms were reported regarding the EENT system. Derm: Wound noted right lower quadrant surgical incision on right mid abdomen from recent hysterectomy. 13:00 Reassessment: Patient and/or family updated on plan of care and expected duration. Pain ap3 level reassessed. Patient is alert, oriented x 3, equal unlabored respirations, skin warm/dry/pink. 14:09 Reassessment: patient ambulated to restroom, informed of NPO status. patient verbalized ap3 understanding. Awaiting OR staff. Vital Signs: 11:24 BP 124 / 80; Pulse 83; Resp 18 S; Temp 97.9(O); Pulse Ox 99% on R/A; Weight 83.01 kg aa5 (R); Height 5 ft. 5 in. (165.10 cm) (R); Pain 5/10; 11:50 BP 124 / 80; Pulse 82; Pulse Ox 97% on R/A; ap3 13:53 BP 124 / 80; Pulse 85; Pulse Ox 99% on R/A; ap3 14:14 BP 132 / 73; Pulse 89; Resp 19; Pulse Ox 99% on R/A; ap3 11:24 Body Mass Index 30.45 (83.01 kg, 165.10 cm) aa5 ED Course: 11:23 Patient arrived in ED. am2 11:24 Ginny Malloy FNP-C is Private Physician. am2 11:24 Arm band placed on Patient placed in an exam room, on a stretcher. aa5 11:38 Abdirahman Finch MD is Attending Physician. [facility] 11:38 Rin Do RN is Primary Nurse. ap3 11:41 Triage completed. aa5 11:51 Patient has correct armband on for positive identification. Placed in gown. Bed in low ap3 position. Call light in reach. Side rails up X 1. Adult w/ patient. Pulse ox on. NIBP on. Door closed. 12:20 Inserted saline lock: 20 gauge in right antecubital area, using aseptic technique. ap3 Blood collected. 13:00 Liban Montero is Hospitalizing Provider. [facility] 13:03 Kirill Morelos MD is Hospitalizing Provider. [facility] 13:23 COVID-19 : Document "Date of Symptom Onset" if Symptomatic. Sent. ap3 14:14 No provider procedures requiring assistance completed. ap3 14:59 Patient admitted, IV remains in place. ap3 Administered Medications: 12:49 Drug: NS 0.9% 1000 ml Route: IV; Rate: 1 bolus; Site: right antecubital; ap3 14:05 Follow up: Response: No adverse reaction; IV Status: Completed infusion ap3 12:49 Drug: fentaNYL (PF) 25 mcg Route: IVP; Site: right antecubital; ap3 13:23 Follow up: Response: No adverse reaction; Pain is decreased ap3 12:49 Drug: Zofran (Ondansetron) 4 mg Route: IVP; Site: right antecubital; ap3 13:23 Follow up: Response: No adverse reaction; Nausea is decreased ap3 12:50 Drug: Clindamycin 900 mg Route: IVPB; Infused Over: 30 mins; Site: right antecubital; ap3 13:24 Follow up: Response: No adverse reaction; IV Status: Completed infusion ap3 13:24 Drug: levofloxacin 750 mg Volume: 150 ml; Route: IVPB; Infused Over: 90 mins; Site: ap3 right antecubital; 14:05 Drug: NS 0.9% 1000 ml Route: IV; Rate: 125 ml/hr; Site: right antecubital; ap3 Outcome: 13:01 Decision to Hospitalize by Provider. [facility] 14:59 Admitted to OR accompanied by nurse, via wheelchair, with chart. ap3 14:59 Condition: good 14:59 Instructed on the need for admit, Demonstrated understanding of instructions. 15:00 Patient left the ED. ap3 Signatures: Abdirahman Finch MD MD cha Calderon, Audri, RN RN Rin Mendez Amanda, RN RN ap3
--- NOTE | 2020-07-09 13:02 | EDPHYS ---
Physician Documentation [facility] Name: Isamar Jackson Age: 70 yrs Sex: Female : 1950 Arrival Date: 07/09/2020 Time: 11:23 Bed 16 Private MD: Ginny Malloy ED Physician Abdirahman Finch HPI: 07/09 12:51 This 70 yrs old Female presents to ER via Ambulatory with complaints of juana Drainage. 12:51 The patient presents with an abscess of the buttocks and chest, The patient presents juana with cellulitis of the buttocks and abdomen, the patient presents with a swollen area of the right gluteus nina. Description: The affected area is moderate sized, confluent, draining, erythematous, fluctuant. Onset: The symptoms/episode began/occurred 3 day(s) ago. Possible cause(s): unknown. Associated signs and symptoms: The patient has no apparent associated signs or symptoms. Modifying factors: the symptoms are alleviated by nothing, the symptoms are aggravated by movement, walking, pressure. Severity of symptoms: At their worst the symptoms were moderate, in the emergency department the symptoms are unchanged. The patient has not experienced similar symptoms in the past. Historical: - Allergies: 11:45 Codeine; aa5 11:45 dermabond; aa5 - PMHx: 11:45 Hep C; Hypertension; Thyroid problem; Hyperlipidemia; aa5 - PSHx: 11:45 shoulder; Knee surgery; aa5 - Immunization history:: Adult Immunizations unknown. - Social history:: Smoking status: Patient reports the use of cigarette tobacco products, denies chronic smoking, but will smoke occasionally. - Family history:: not pertinent. ROS: 12:51 Constitutional: Negative for fever, chills, and weight loss, Eyes: Negative for injury, juana pain, redness, and discharge, ENT: Negative for injury, pain, and discharge, Neck: Negative for injury, pain, and swelling, Cardiovascular: Negative for chest pain, palpitations, and edema, Respiratory: Negative for shortness of breath, cough, wheezing, and pleuritic chest pain, Abdomen/GI: Negative for abdominal pain, nausea, vomiting, diarrhea, and constipation, Back: Negative for injury and pain, : Negative for injury, bleeding, discharge, and swelling, Skin: Negative for injury, rash, and discoloration, Neuro: Negative for headache, weakness, numbness, tingling, and seizure, Psych: Negative for depression, anxiety, suicide ideation, homicidal ideation, and hallucinations, Allergy/Immunology: Negative for hives, rash, and allergies, Endocrine: Negative for neck swelling, polydipsia, polyuria, polyphagia, and marked weight changes, Hematologic/Lymphatic: Negative for swollen nodes, abnormal bleeding, and unusual bruising. 12:51 MS/extremity: Positive for erythema, pain, swelling, tenderness, of the right gluteus nina and abdomen. Exam: 12:54 Constitutional: This is a well developed, well nourished patient who is awake, alert, juana and in no acute distress. Head/Face: Normocephalic, atraumatic. Eyes: Pupils equal round and reactive to light, extra-ocular motions intact. Lids and lashes normal. Conjunctiva and sclera are non-icteric and not injected. Cornea within normal limits. Periorbital areas with no swelling, redness, or edema. ENT: Nares patent. No nasal discharge, no septal abnormalities noted. Tympanic membranes are normal and external auditory canals are clear. Oropharynx with no redness, swelling, or masses, exudates, or evidence of obstruction, uvula midline. Mucous membranes moist. Neck: Trachea midline, no thyromegaly or masses palpated, and no cervical lymphadenopathy. Supple, full range of motion without nuchal rigidity, or vertebral point tenderness. No Meningismus. Chest/axilla: Normal chest wall appearance and motion. Nontender with no deformity. No lesions are appreciated. Cardiovascular: Regular rate and rhythm with a normal S1 and S2. No gallops, murmurs, or rubs. Normal PMI, no JVD. No pulse deficits. Respiratory: Lungs have equal breath sounds bilaterally, clear to auscultation and percussion. No rales, rhonchi or wheezes noted. No increased work of breathing, no retractions or nasal flaring. Back: No spinal tenderness. No costovertebral tenderness. Full range of motion. Female : Normal external genitalia. MS/ Extremity: Pulses equal, no cyanosis. Neurovascular intact. Full, normal range of motion. Neuro: Awake and alert, GCS 15, oriented to person, place, time, and situation. Cranial nerves II-XII grossly intact. Motor strength 5/5 in all extremities. Sensory grossly intact. Cerebellar exam normal. Normal gait. Psych: Awake, alert, with orientation to person, place and time. Behavior, mood, and affect are within normal limits. 12:54 Abdomen/GI: Inspection: abdomen appears normal, Bowel sounds: normal, Palpation: abdomen is soft and non-tender, Liver: no appreciated palpable abnormalities, Hernia: not appreciated. 12:54 Skin: cellulitis, that is moderate, on the right gluteus nina, induration, that is moderate is noted, located on the buttocks and abdomen. 13:10 ECG was reviewed by the Attending Physician. [facility] Vital Signs: 11:24 BP 124 / 80; Pulse 83; Resp 18 S; Temp 97.9(O); Pulse Ox 99% on R/A; Weight 83.01 kg aa5 (R); Height 5 ft. 5 in. (165.10 cm) (R); Pain 5/10; 11:50 BP 124 / 80; Pulse 82; Pulse Ox 97% on R/A; ap3 13:53 BP 124 / 80; Pulse 85; Pulse Ox 99% on R/A; ap3 14:14 BP 132 / 73; Pulse 89; Resp 19; Pulse Ox 99% on R/A; ap3 11:24 Body Mass Index 30.45 (83.01 kg, 165.10 cm) aa5 MDM: 11:38 Patient medically screened. [facility] 12:54 Differential diagnosis: abscess, cellulitis. Data reviewed: vital signs, nurses notes, [facility] lab test result(s), EKG, radiologic studies, plain films. Data interpreted: tobacco weigher: rate is 82 beats/min, rhythm is regular, Pulse oximetry: on room air is 97 %. Test interpretation: by ED physician or midlevel provider: ECG, plain radiologic studies. Counseling: I had a detailed discussion with the patient and/or guardian regarding: the historical points, exam findings, and any diagnostic results supporting the discharge/admit diagnosis, lab results, radiology results. 07/09 12:02 Order name: Basic Metabolic Panel [facility] 07/09 12:02 Order name: CBC with Diff [facility] 07/09 12:02 Order name: LFT's [facility] 07/09 12:02 Order name: Magnesium [facility] 07/09 12:02 Order name: Troponin (emerg Dept Use Only) [facility] 07/09 12:50 Order name: Urine Dipstick-Ancillary; Complete Time: 13:01 [facility] 07/09 13:07 Order name: COVID-19 : Document "Date of Symptom Onset" if Symptomatic. aa5 07/09 13:09 Order name: Basic Metabolic Panel; Complete Time: 13:28 [facility] 07/09 13:09 Order name: Liver (Hepatic) Function; Complete Time: 13:28 [facility] 07/09 13:09 Order name: Troponin (Emerg Dept Use Only); Complete Time: 13:28 [facility] 07/09 13:09 Order name: Magnesium; Complete Time: 13:28 [facility] 07/09 13:17 Order name: CBC with Automated Diff; Complete Time: 13:28 [facility] 07/09 13:27 Order name: CORONAVIRUS [facility] 07/09 14:08 Order name: SARS-COV-2 RT PCR [facility] 07/09 12:02 Order name: XRAY Chest (1 view) [facility] 07/09 12:02 Order name: EKG; Complete Time: 12:03 [facility] 07/09 12:02 Order name: Cardiac monitoring; Complete Time: 12:15 [facility] 07/09 12:02 Order name: EKG - Nurse/Tech; Complete Time: 13:05 [facility] 07/09 12:02 Order name: IV Saline Lock; Complete Time: 12:50 [facility] 07/09 12:02 Order name: Labs collected and sent; Complete Time: 12:50 [facility] 07/09 12:02 Order name: O2 Per Protocol; Complete Time: 12:16 [facility] 07/09 12:02 Order name: O2 Sat Monitoring; Complete Time: 12:16 [facility] 07/09 12:04 Order name: Urine Dipstick-Ancillary (obtain specimen); Complete Time: 12:50 [facility] 07/09 13:07 Order name: RAD; Complete Time: 13:28 [facility] 07/09 13:29 Order name: NPO; Complete Time: 13:46 [facility] EC:10 Rate is 80 beats/min. NV interval is normal. QRS interval is normal. QT interval is juana normal. No Q waves. T waves are Normal. No ST changes noted. Clinical impression: Normal ECG and No evidence of ischemia. Interpreted by me. Reviewed by me. Administered Medications: 12:49 Drug: NS 0.9% 1000 ml Route: IV; Rate: 1 bolus; Site: right antecubital; ap3 14:05 Follow up: Response: No adverse reaction; IV Status: Completed infusion ap3 12:49 Drug: fentaNYL (PF) 25 mcg Route: IVP; Site: right antecubital; ap3 13:23 Follow up: Response: No adverse reaction; Pain is decreased ap3 12:49 Drug: Zofran (Ondansetron) 4 mg Route: IVP; Site: right antecubital; ap3 13:23 Follow up: Response: No adverse reaction; Nausea is decreased ap3 12:50 Drug: Clindamycin 900 mg Route: IVPB; Infused Over: 30 mins; Site: right antecubital; ap3 13:24 Follow up: Response: No adverse reaction; IV Status: Completed infusion ap3 13:24 Drug: levofloxacin 750 mg Volume: 150 ml; Route: IVPB; Infused Over: 90 mins; Site: ap3 right antecubital; 14:05 Drug: NS 0.9% 1000 ml Route: IV; Rate: 125 ml/hr; Site: right antecubital; ap3 Disposition: 07/09/20 13:01 Hospitalization ordered by Kirill Morelos for Observation. Preliminary diagnosis are Cutaneous abscess of buttock, Cutaneous abscess of abdominal wall. - Bed requested for Telemetry/MedSurg (observation). - Status is Observation. ap3 - Condition is Stable. - Problem is new. - Symptoms have improved. Signatures: Dispatcher [employer] EDMS Abdirahman Finch MD MD cha Calderon, Audri, RN RN aa5 Rin Do RN RN ap3 Corrections: (The following items were deleted from the chart) 13:04 13:01 Hospitalization Ordered by Liban Montero for Observation. Preliminary diagnosis juana is Cutaneous abscess of buttock; Cutaneous abscess of abdominal wall. Bed requested for Telemetry/MedSurg (observation). Status is Observation. Condition is Stable. Problem is new. Symptoms have improved. juana 15:00 13:04 07/09/2020 13:01 Hospitalization Ordered by Kirill Morelos MD for Observation. ap3 Preliminary diagnosis is Cutaneous abscess of buttock; Cutaneous abscess of abdominal wall. Bed requested for Telemetry/MedSurg (observation). Status is Observation. Condition is Stable. Problem is new. Symptoms have improved. juana
--- NOTE | 2020-07-09 13:07 | RAD REPORT ---
EXAM DESCRIPTION: Mery Single View07/09/2020 12:59 pm CLINICAL HISTORY: cough COMPARISON: none FINDINGS: The lungs appear clear of acute infiltrate. The heart is normal size IMPRESSION: No acute abnormalities displayed
[2020-07-09 13:08] LABS: Sodium Level 138 mmol/L (136-145)
[2020-07-09 13:09] LABS: ALT/SGPT 31 U/L (12-78); AST/SGOT 25 U/L (15-37); Albumin 3.8 g/dL (3.4-5.0); Alkaline Phosphatase 66 U/L (45-117); BUN Blood Urea Nitrogen 11 mg/dL (7-18); Bicarbonate 28 mmol/L (21-32); Bilirubin Direct 0.2 mg/dL (0-0.2); Bilirubin Total 0.5 mg/dL (0.2-1.0); Glucose Level 96 mg/dL (74-106); Magnesium 2.3 mg/dL (1.8-2.4); Troponin (Emerg Dept Use Only) < 0.02 ng/mL (0.0-0.045)
[2020-07-09 13:13] LABS: Absolute Lymphocytes (CBC) 3.7 K/uL (0.7-4.9); Basophils % 1.2 % (0-1.3); Hematocrit 38.4 % (36.0-45.0); Lymphocytes % 23.5 % (15.3-44.8); RBC Red Blood Cell Count 3.96 M/uL (3.86-4.86)
[2020-07-09] MEDS ORDERED: ONDANSETRON 4 MG/2 ML VIAL IV PRN (13:15)
[2020-07-09] MEDS ORDERED: MAGNESIUM HYDROXIDE 8% 30 ML PO PRN (13:15)
--- NOTE | 2020-07-09 13:25 | P.HP ---
Certification for Inpatient Patient admitted to: Inpatient With expected LOS: >2 Midnights Practitioner: I am a practitioner with admitting privileges, knowledge of patient current condition, hospital course, and medical plan of care. Services: Services provided to patient in accordance with Admission requirements found in Title 42 Section 412.3 of the Code of Federal Regulations Patient History Date of Service: 07/09/20 Reason for admission: Abd abscess, cellulitis. History of Present Illness: 70 y o female pt with hx of hysterectomy in June 2020 who was evaluated in the ED after she reported feeling chills, rigor and night sweats a few weeks post hysterectomy.she reported feeling malaise and weakness. No episode of fever, cough, burning urination reported. she was evaluated by her PCP who prescribed some antibiotics for her as she had redness and pain at post op sites on her ant abd wall. she was worked up with a CT abd/pelvis that revealed an intra-abd abscess. she was asked to be admitted for inpt care, IV antibiotics and possible drainage of abscess. - Past Medical/Surgical History Past Medical History: Patient denies medical history Review of Systems General: Chills, Sweats, Weakness, Malaise Eyes: Unremarkable ENT: Unremarkable Respiratory: Unremarkable Cardiovascular: Unremarkable Gastrointestinal: Nausea, Abdominal Pain Genitourinary: Unremarkable Musculoskeletal: Unremarkable Neurological: Unremarkable Physical Examination - Physical Exam General: Alert, Oriented x3, Cooperative HEENT: Atraumatic, Normocephalic Neck: Supple Respiratory: Clear to auscultation bilaterally Cardiovascular: Regular rate/rhythm, Normal S1 S2 Gastrointestinal: Other (patches of hyperemia noted at op site for her laparascopic incisions.) - Studies Laboratory Data (last 24 hrs) 07/09/20 12:28: WBC 15.80 H, Hgb 13.0, Hct 38.4, Plt Count 295 07/09/20 12:28: Sodium 138, Potassium 4.0, BUN 11, Creatinine 0.62, Glucose 96, Magnesium 2.3, Total Bilirubin 0.5, AST 25, ALT 31, Alkaline Phosphatase 66 Assessment and Plan - Plan 1. Cellulitis with abscess: Abscess detected on imaging. cellulitis present on ant abd wall. we have started empiric antibiotics to cover for MRSA and gram neg rods. we will follow cultures of blood and abscess pus when drained. Surgeon following. 2. Sepsis: Suspected based on presentation. Leukocytosis noted on labs. Blood cultures taken. we will follow results. we will continue empiric antibiotics of Vancomycin and Cefepime. 3.s/p hysterectomy: No new issues. - Advance Directives Does patient have a Living Will: No Does patient have a Durable POA for Healthcare: No
[2020-07-09] MEDS: ENOXAPARIN 40 MG/0.4 ML SQ SCH (14:00)
[2020-07-09] MEDS: CEFEPIME/SWI 1gm 10 ML IVP SCH ×2 (14:00→21:16)
[2020-07-09] MEDS ORDERED: MIDAZOLAM HCL 2 MG/2 ML INJ ONE (15:01)
[2020-07-09] MEDS ORDERED: propofoL 200 MG/20 ML VIAL IV ONE (15:01)
[2020-07-09] MEDS ORDERED: KETOROLAC 30 MG/ML INJ ONE (15:02)
[2020-07-09] MEDS ORDERED: LIDOCAINE 1% MPF 5 ML VIAL ONE (15:02)
[2020-07-09] MEDS ORDERED: dexAMETHasone 4 MG/ML VIAL ONE (15:02)
--- NOTE | 2020-07-09 15:40 | P.OP ---
Machine Hoop Maker: NONE,NONE Preoperative diagnosis: Abscess right abdomen and right poncho-rectal region Postoperative diagnosis: same Primary procedure: I and D and Debridement abdomen andright per-rectal abscess Secondary procedure: same Anesthesia: General Estimated blood loss: min Specimen: C&S Findings: as above Complications: None Transferred to: Recovery Room Condition: Good
[2020-07-09] MEDS ORDERED: HYDROMORPHONE HCL 1 MG/ML INJ IV PRN (15:55)
[2020-07-09] MEDS ORDERED: VANCOMYCIN 1.5 GM in NA CHLORIDE 0.9% 500 ML IVPB SCH ×2 (16:00→21:00)
[2020-07-09] MEDS: INSULIN -REGULAR HUMAN 50 UNIT/0.5 ML ML SQ SCH ×2 (16:30→21:15)
[2020-07-09] MEDS: ACETAMINOPHEN 500 MG TAB PO PRN (19:00)
[2020-07-09] MEDS: NA CHLORIDE 0.9% 1,000 ML IV SCH (19:16)
[2020-07-09 19:33] VITALS: BMI 30.2
[2020-07-09] MEDS ORDERED: MELATONIN 5 MG TABLET PO PRN (20:22)
--- NOTE | 2020-07-09 20:53 | PREOPCON ---
Date of Consultation: 07/09/2020 Reason For Consultation: Infection in the buttocks and abdomen. History Of Present Illness: The patient is a 70-year-old female, who presents to the emergency room with redness, swelling, pain in the right gluteus region for about a week and increasing in size and also in the abdominal wound for about a week where she recently had a laparoscopic hysterectomy done. She saw her SCALPER OPERATOR doctor and was started on clindamycin yesterday. She is complaining of fever, low grade. No purulent discharge. Complaining of pain. No sore throat, runny nose, cough, headaches, o r dizziness. No chest pain. Review of Systems: Otherwise unremarkable. Past Medical History: Significant for hepatitis C, hypertension, thyroid issues, hyperlipidemia. Past Surgical History: Shoulder surgery, knee surgery, and recent laparoscopic hysterectomy. Allergies: INCLUDE CODEINE AND DERMABOND. Social History: The patient does not currently smoke chronically. She smokes occasionally and does not drink alcohol except for special occasions. Family History: Noncontributory. Physical Examination: Vital Signs: Stable. She is afebrile. General: She is awake, alert, oriented x3. Head and Neck: Cranial nerves 2 through 12 are grossly within normal limits. No neck masses. No JV D. Throat clear. Neck is supple. Chest: Clear. Heart: S1, S2. Abdomen: Soft, nondistended. Positive bowel sounds. Positive redness, tenderness, fluctuance in th e right paramedian 5 mm trocar site. Rectal: The patient has a right perirectal abscess, approximately 8 x 6 cm with significant erythema , warmth, edema, and fluctuance. Laboratory Data: White count of 15.8 with a left shift. Chemistry reviewed. Assessment: Abscess and cellulitis of the right abdomen and perirectal region. Recommendations: Admit, n.p.o., IV fluids, IV antibiotics, to the OR for incision and drainage and d ebridement of both abscesses. The patient understands the risks, benefits, and alternatives, and agr ees to procedure. /MODL Voice ID: [id number] Report ID: [id number]
[2020-07-09] MEDS ORDERED: CEFEPIME 1 GM/VIAL IV SCH (21:00)
[2020-07-09] MEDS ORDERED: CEFEPIME/SWI 1gm 10 ML ONE (21:07)
[2020-07-09] MEDS: VANCOMYCIN 1.5 GM in NA CHLORIDE 0.9% 500 ML IVPB SCH (21:14)
--- NOTE | 2020-07-09 23:05 | OP ---
Date of Procedure: 07/09/2020 Surgeon: Eron Saleem MD Director Of Teacher Education: None. Preoperative Diagnosis: Right abdominal wall abscess and right perirectal abscess. Postoperative Diagnosis: Right abdominal wall abscess and right perirectal abscess. Procedure: Incision, drainage, and debridement of right abdomen and right perirectal abscess. Estimated Blood Loss: Minimal. Specimen: Culture and sensitivity from both the wounds. Findings: As above. Anesthesia: General. Complications: None. Disposition: The patient tolerated the procedure in stable condition, taken to Recovery in good gene ral condition. Procedure In Detail: The patient was brought to the OR and placed in supine position. General anest hesia begun. The patient was prepped and draped in the usual sterile fashion in the lithotomy positi on in both areas. Then, Marcaine 0.5% was infiltrated locally. A 15-blade was used to make a 1 cm i ncision over the abdominal abscess where the previous incision was made. Fluid was evacuated, cultur es were done, wound was irrigated. Bleeding was controlled with cautery. Wet-to-dry normal saline d ressing change was applied. Cultures were done. Then, in the right perirectal region, a 4 cm incisi on was made over the most fluctuant part of the abscess. Subcutaneous tissue was divided deep to monika t, infected fluid was evacuated. Wound was irrigated. Bleeding was controlled with cautery. Cultur es were done and wet-to-dry normal saline dressing change was applied. The patient tolerated the pro cedure in stable condition, taken to Recovery in good general condition. /MODL Voice ID: [id number] Report ID: [id number]
[2020-07-10] MEDS: ACETAMINOPHEN 500 MG TAB PO PRN ×4 (00:29→20:38)
[2020-07-10 05:53] LABS: Basophils % 1.2 % (0-1.3); Hematocrit 34.3 % (36.0-45.0); Lymphocytes % 14.5 % (15.3-44.8); MPV 8.7 fL (7.6-11.3); RBC Red Blood Cell Count 3.53 M/uL (3.86-4.86)
[2020-07-10 06:08] LABS: ALT/SGPT 29 U/L (12-78); AST/SGOT 25 U/L (15-37); Albumin 3.2 g/dL (3.4-5.0); Alkaline Phosphatase 58 U/L (45-117); BUN Blood Urea Nitrogen 11 mg/dL (7-18); Bicarbonate 25 mmol/L (21-32); Bilirubin Total 0.3 mg/dL (0.2-1.0); Glucose Level 134 mg/dL (74-106); Potassium 4.1 mmol/L (3.5-5.1); Protein, Total 7.2 g/dL (6.4-8.2); Sodium Level 139 mmol/L (136-145)
[2020-07-10] MEDS: INSULIN -REGULAR HUMAN 50 UNIT/0.5 ML ML SQ SCH ×4 (07:30→20:40)
--- NOTE | 2020-07-10 07:50 | EKG ---
Test Date: 2020-07-09 Test Time: 12:58:01 Delivery Room Supervisor: SINGH MEASUREMENT RESULTS: Intervals: Rate: 80 ME: 140 QRSD: 74 QT: 414 QTc: 477 Lind: P: 30 ME: 140 QRS: 55 T: 58 INTERPRETIVE STATEMENTS: Normal sinus rhythm Normal ECG No previous ECG available for comparison Electronically Signed On 07-10-20 07:48:23 CDT by Karthikeyan Olivares
[2020-07-10] MEDS: CEFEPIME/SWI 1gm 10 ML IVP SCH ×2 (10:08→20:38)
[2020-07-10] MEDS: NA CHLORIDE 0.9% 1,000 ML IV SCH ×3 (10:08→21:07)
[2020-07-10] MEDS: ENOXAPARIN 40 MG/0.4 ML SQ SCH (10:09)
[2020-07-10 12:31] LABS: Platelet Estimate ADEQ; White Blood Cell Scan OK (OK)
[2020-07-10 12:32] LABS: Blood Morphology Comment NOT SEEN (NOT SEEN)
--- NOTE | 2020-07-10 14:15 | PN ---
Date of Progress Note: 07/10/2020 Subjective: The patient is awake, alert. No complaints. Objective: Vital Signs: Stable, afebrile. Abdomen: Dressing is clean, dry and intact. Laboratory Data: Cultures pending. White count is still elevated. Assessment: Status post I and D of abdominal wall and the right perirectal abscess. Recommendations: Continue IV antibiotics. Check cultures and adjust antibiotics accordingly. Teach family to change dressings. As white count is still elevated, I would recommend IV antibiotics for at least 24 more hours. The patient can probably be discharged home tomorrow and follow up with me i n my office in 2 weeks. /JAIME Voice ID: [id number] Report ID: [id number]
[2020-07-10] MEDS: VANCOMYCIN 1.5 GM in NA CHLORIDE 0.9% 500 ML IVPB SCH (16:10)
--- NOTE | 2020-07-10 18:44 | P.PN ---
Subjective Date of Service: 07/10/20 Chief Complaint: Abd abscess, cellulitis. Status post incision and drainage of abscess today. Physical Examination - Vital Signs Temperature: 97.0 F Blood Pressure: 131/75 Pulse: 84 Respirations: 16 Pulse Ox (%): 96 - Physical Exam General: Alert, In no apparent distress, Oriented x3 HEENT: Mucous membr. moist/pink Respiratory: Clear to auscultation bilaterally, Normal air movement Cardiovascular: No edema, Regular rate/rhythm, Normal S1 S2 Gastrointestinal: Normal bowel sounds, Soft and benign, Non-distended Musculoskeletal: No swelling Neurological: Normal strength at 5/5 x4 extr - Studies Microbiology Data (last 24 hrs): 07/09/20 15:30 Wound - Other Gram Stain - Final 07/09/20 15:30 Other - Other Gram Stain - Final 07/09/20 15:26 Wound - Abdomen Gram Stain - Final 07/09/20 15:26 Other - Abdomen Gram Stain - Final Assessment And Plan - Current Problems (Diagnosis) (1) Abdominal wall abscess at site of surgical wound Current Visit: Yes Status: Acute (2) Leukocytosis Current Visit: Yes Status: Acute - Plan General surgery input appreciated. Continue IV antibiotics. Pain management as needed. Dr. Saleem to follow for wound dressing recommendation. Monitor CBC.
[2020-07-11 05:46] LABS: Absolute Lymphocytes (CBC) 4.5 K/uL (0.7-4.9); Basophils % 0.6 % (0-1.3); Hematocrit 32.3 % (36.0-45.0); Lymphocytes % 36.3 % (15.3-44.8); MPV 8.6 fL (7.6-11.3); RBC Red Blood Cell Count 3.29 M/uL (3.86-4.86)
[2020-07-11] MEDS: NA CHLORIDE 0.9% 1,000 ML IV SCH (06:46)
[2020-07-11] MEDS: INSULIN -REGULAR HUMAN 50 UNIT/0.5 ML ML SQ SCH (07:30)
[2020-07-11] MEDS: VANCOMYCIN 1.5 GM in NA CHLORIDE 0.9% 500 ML IVPB SCH (08:02)
[2020-07-11] MEDS: CEFEPIME/SWI 1gm 10 ML IVP SCH ×2 (08:02→20:16)
[2020-07-11] MEDS: ENOXAPARIN 40 MG/0.4 ML SQ SCH (08:03)
[2020-07-11] MEDS: CODEINE 30MG/APAP 300MG TAB PO PRN (08:08)
[2020-07-11] MEDS: SENOSIDES 8.6 MG TAB PO SCH ×2 (10:45→20:19)
[2020-07-11] MEDS: POLYETHYL GLY 3350 17 GM/DOSE PO SCH ×2 (10:45→20:16)
--- NOTE | 2020-07-11 12:38 | P.PN ---
Subjective Date of Service: 07/11/20 Chief Complaint: Abd abscess, cellulitis. Status post incision and drainage of abscess yesterday. No major changes today. Patient informed me her wound culture was growing Staph aureus at [facility]. I spoke to Dr. Huffman at [phone] who confirmed Staph aureus with sensit ivity pending. Physical Examination - Vital Signs Temperature: 97.3 F Blood Pressure: 145/81 Pulse: 80 Respirations: 19 Pulse Ox (%): 95 - Physical Exam General: Alert, In no apparent distress HEENT: Mucous membr. moist/pink Respiratory: Clear to auscultation bilaterally, Normal air movement Cardiovascular: No edema, Regular rate/rhythm, Normal S1 S2 Gastrointestinal: Normal bowel sounds, Soft and benign, Non-distended, No tenderness Musculoskeletal: No swelling, No erythema Integumentary: Other (Right abdomen lower quadrant I and D incision packed. Wound looks clean.) Neurological: Normal strength at 5/5 x4 extr Rectal: Other (Perirectal incised wound dressed.) - Studies Microbiology Data (last 24 hrs): 07/09/20 15:26 Wound - Abdomen Gram Stain - Final 07/09/20 15:30 Wound - Other Gram Stain - Final 07/09/20 15:30 Other - Other Gram Stain - Final 07/09/20 15:26 Other - Abdomen Gram Stain - Final Assessment And Plan - Current Problems (Diagnosis) (1) Abdominal wall abscess at site of surgical wound Current Visit: Yes Status: Acute (2) Leukocytosis Current Visit: Yes Status: Acute (3) Perirectal abscess Current Visit: Yes Status: Acute - Plan General surgery input appreciated. Wound culture is growing coagulase positive Staph Continue IV vancomycin and cefepime. Follow cultures. Follow antibiotics sensitivity. Pain management as needed. Local wound packing and dressing. Monitor CBC.
--- NOTE | 2020-07-11 13:07 | PN ---
Date of Progress Note: 07/11/2020 Subjective: The patient is awake, alert, no complaint. She stated that she had blood cultures that were positive for Staph at the previous hospital where she was evaluated. Dr[facility] but the sensitivities are still pending. So, he has ordered a blood culture and will see if it is positive, and if it is, what it is sensitive to, and she may need IV antibiotics. She still has a little bit of leukocytosis. Objective: Her dressings are clean, dry, and intact. Her vitals are stable. She is afebrile. Laboratory Data: Her white count is 12.3, but there is no left shift. Her cultures are pending; how ever, the Gram stain from surgery is showing gram-positive cocci in clusters. Assessment: Status post incision and drainage of abdominal and perineal abscesses. Recommendation: Check cultures. Adjust antibiotics accordingly. Check the blood cultures, and if i t is positive, then she may need 10 days of IV antibiotics. Plan of care discussed in detail with Dr Jamal Montero. RIGO/MODL Voice ID: [id number] Report ID: [id number]
[2020-07-12] MEDS: VANCOMYCIN 1.5 GM in NA CHLORIDE 0.9% 500 ML IVPB SCH ×2 (03:43→22:18)
[2020-07-12 06:16] LABS: Absolute Lymphocytes (CBC) 3.4 K/uL (0.7-4.9); Basophils % 1.4 % (0-1.3); Hematocrit 34.5 % (36.0-45.0); Lymphocytes % 36.8 % (15.3-44.8); MPV 8.7 fL (7.6-11.3); RBC Red Blood Cell Count 3.58 M/uL (3.86-4.86)
[2020-07-12 06:29] LABS: BUN Blood Urea Nitrogen 8 mg/dL (7-18); Bicarbonate 27 mmol/L (21-32); Glucose Level 90 mg/dL (74-106); Potassium 3.7 mmol/L (3.5-5.1); Sodium Level 141 mmol/L (136-145)
[2020-07-12] MEDS: SENOSIDES 8.6 MG TAB PO SCH ×2 (09:43→20:17)
[2020-07-12] MEDS: ENOXAPARIN 40 MG/0.4 ML SQ SCH (09:43)
[2020-07-12] MEDS: CEFEPIME/SWI 1gm 10 ML IVP SCH (09:44)
[2020-07-12] MEDS: POLYETHYL GLY 3350 17 GM/DOSE PO SCH ×2 (09:44→20:16)
--- NOTE | 2020-07-12 12:57 | P.PN ---
Subjective Date of Service: 07/12/20 Chief Complaint: Abd abscess, cellulitis. Status post incision and drainage of abscess day 2 Wound culture is growing MRSA Patient informed me her wound culture was growing Staph aureus at [email or web address] Patient has no new complaint. Physical Examination - Vital Signs Temperature: 98.1 F Blood Pressure: 137/78 Pulse: 81 Respirations: 17 Pulse Ox (%): 97 - Physical Exam General: Alert, In no apparent distress HEENT: Mucous membr. moist/pink Neck: JVD not distended Respiratory: Clear to auscultation bilaterally, Normal air movement Cardiovascular: No edema Gastrointestinal: Soft and benign, Non-distended Musculoskeletal: No swelling Neurological: Normal strength at 5/5 x4 extr - Studies Microbiology Data (last 24 hrs): 07/09/20 15:26 Wound - Abdomen Gram Stain - Final 07/09/20 15:26 Wound - Abdomen Culture & Sensitivity - Final Meth Resistant Staph Aureus 07/09/20 15:30 Wound - Other Gram Stain - Final 07/09/20 15:30 Wound - Other Culture & Sensitivity - Final Meth Resistant Staph Aureus Assessment And Plan - Current Problems (Diagnosis) (1) Abdominal wall abscess at site of surgical wound Current Visit: Yes Status: Acute (2) Leukocytosis Current Visit: Yes Status: Acute (3) Perirectal abscess Current Visit: Yes Status: Acute - Plan Wound culture is growing MRSA sensitive to Bactrim, Cipro, tetracycline and Vanco. Leukocytosis resolved. Continue IV vancomycin. Discontinue cefepime. Awaiting culture results from [facility] We may be able to do oral antibiotic for a total of 2 weeks. Pain management as needed. Local wound packing and dressing. Monitor CBC.
[2020-07-12] MEDS: CODEINE 30MG/APAP 300MG TAB PO PRN (13:18)
[2020-07-12 21:04] VITALS: O2SAT 96
[2020-07-13] MEDS: SENOSIDES 8.6 MG TAB PO SCH (08:23)
[2020-07-13] MEDS: POLYETHYL GLY 3350 17 GM/DOSE PO SCH (08:23)
[2020-07-13] MEDS: ENOXAPARIN 40 MG/0.4 ML SQ SCH (08:25)
--- NOTE | 2020-07-13 10:34 | P.CNS ---
Date of Consult: 07/13/20 Chief Complaint: Abd abscess, cellulitis. History of Present Illness: The patient is 62-year-old female with a past medical history of hepatitis-C, and hysterectomy in June 2020 due to uterine prolapse who presented to the emergency department with fever, chills, senior mortgage underwriter, and night sweats a few weeks post hysterectomy. Patient said that for the past week she has multiple ways and weakness. She denies fever, cough, reported burning with urination. She was evaluated by her primary practitioner who prescribed her an antibiotic due to the redness and pain at the postop site. CT abdomen and pelvis revealed an intra-abdominal abscess. Patient had a incision and drainage of the abscess as well as and incision and drainage of the perirectal abscess on this admission. Patient was started on IV vancomycin. Patient is doing well, vital signs stable. Infectious disease has been consulted to recommend an oral antibiotic for discharge. Wound culture of perirectal abscess and abdominal wound abscess both grew MRSA- sensitive to many antibiotics. Patient denies nausea, vomiting, diarrhea, shortness breath or chest pain. Patient has mild pain/irritation to I and D site of the abdomen and perirectal area. Allergies dermabond Adverse Reaction (Uncoded 07/09/20 19:24) Hives/Rash Home Medications: Citalopram Hydrobromide [Celexa] 40 mg PO DAILY 07/09/20 Levothyroxine [Synthroid] 50 mcg PO DAILY 07/09/20 Metoprolol Succinate 50 mg PO DAILY 07/09/20 Omeprazole [Prilosec] 40 mg PO DAILY 07/09/20 Rosuvastatin [Crestor*] 10 mg PO DAILY 07/09/20 lisinopriL [Lisinopril] 40 mg PO DAILY 07/09/20 - Past Medical/Surgical History Diabetic: No -: HEpatitis C - 25 years ago -: Hypertension -: High CHolesterol -: Hypothyroidism -: Shoulder Surgery -: Hysterectomy -: Knee Replacement - Family History Father Medical History: Heart disease, Other (see notes) Notes: thrombosis Mother Medical History: Lung disease - Social History Smoking Status: Current some day smoker Alcohol use: No CD- Drugs: No Caffeine use: Yes Place of Residence: Home Review of Systems 10-point ROS is otherwise unremarkable Physical Examination Temp Pulse Resp BP Pulse Ox 98.2 F 84 18 150/91 H 97 07/13/20 08:00 07/13/20 08:00 07/13/20 08:00 07/13/20 08:00 07/13/20 08:00 General: Alert, In no apparent distress HEENT: Atraumatic, Normocephalic Neck: Supple, 2+ carotid pulse no bruit Respiratory: Clear to auscultation bilaterally, Normal air movement Cardiovascular: No edema, Normal pulses Gastrointestinal: Other (IND sites noted to right lower abdominal quadrant. The poncho wound tissue is clean dry and intact no clinical signs of infection.) Integumentary: No rashes, No breakdown External genitalia: Other (Plan decide noted to right buttock/perirectal area. Pre 1 tissues mildly erythematous. Patient has what appears be mostly moisture associated dermatitis to the bilateral groin area.) Temp Pulse Resp BP Pulse Ox 98.2 F 84 18 150/91 H 97 07/13/20 08:00 07/13/20 08:00 07/13/20 08:00 07/13/20 08:00 07/13/20 08:00 Active Medications Acetaminophen (Acetaminophen 500 Mg Tab) 500 mg PO Q4HP PRN PRN Reason: Pain scale 2-4 (Mild) Last Admin: 07/10/20 20:38 Dose: 500 mg Documented by: Acetaminophen/Codeine Phosphate (Codeine 30mg/Apap 300mg Tab) 1 tab PO Q4H PRN PRN Reason: Pain scale 5-7 (Moderate) Last Admin: 07/12/20 13:18 Dose: 1 tab Documented by: Enoxaparin Sodium (Enoxaparin 40 Mg/0.4 Ml) 40 mg SQ DAILY [facility] Last Admin: 07/13/20 08:25 Dose: 40 mg Documented by: Hydromorphone HCl (Hydromorphone Hcl 1 Mg/Ml Inj) 1 mg IV Q4H PRN PRN Reason: Pain scale 8-10 (Severe) Vancomycin HCl 1.5 gm/ Sodium (Chloride) 500 mls @ 250 mls/hr IVPB Q18H [facility]; Protocol Last Admin: 07/12/20 22:18 Dose: 500 mls Documented by: Magnesium Hydroxide (Magnesium Hydroxide 8% 30 Ml) 30 ml PO DAILYPRN PRN PRN Reason: CONSTIPATION Last Admin: 07/11/20 17:27 Dose: 30 ml Documented by: Melatonin (Melatonin 5 Mg Tablet) 10 mg PO BEDTIME PRN PRN PRN Reason: INSOMNIA Last Admin: 07/09/20 21:14 Dose: 10 mg Documented by: Ondansetron HCl (Ondansetron 4 Mg/2 Ml Vial) 4 mg IV Q6HP PRN PRN Reason: NAUSEA / VOMITING Polyethylene Glycol (Polyethyl Gly 3350 17 Gm/Dose) 17 gm PO BID [facility] Last Admin: 07/13/20 08:23 Dose: Not Given Documented by: Senna (Senosides 8.6 Mg Tab) 17.2 mg PO BID [facility] Last Admin: 07/13/20 08:23 Dose: Not Given Documented by: Sodium Chloride (Flush Normal Saline 10 Ml) 10 ml IV BID [facility] Last Admin: 07/13/20 08:25 Dose: 10 ml Documented by: Laboratory Last Values WBC 14.00 K/uL (4.3-10.9) H 07/10/20 05:29 RBC 3.53 M/uL (3.86-4.86) L 07/10/20 05:29 Hgb 11.7 g/dL (12.0-15.0) L 07/10/20 05:29 Hct 34.3 % (36.0-45.0) L 07/10/20 05:29 MCV 97.3 fL (80-100) 07/10/20 05:29 MCH 33.2 pg (27.0-35.0) 07/10/20 05:29 MCHC 34.1 g/dL (32.0-36.0) 07/10/20 05:29 RDW 12.6 % (12.1-15.2) 07/10/20 05:29 Plt Count 264 K/uL (152-406) 07/10/20 05:29 MPV 8.7 fL (7.6-11.3) 07/10/20 05:29 Neutrophils % 79.1 % (41.7-73.7) H 07/10/20 05:29 Lymphocytes % 14.5 % (15.3-44.8) L 07/10/20 05:29 Monocytes % 5.1 % (3.3-12.3) 07/10/20 05:29 Eosinophils % 0.1 % (0-4.4) 07/10/20 05:29 Basophils % 1.2 % (0-1.3) 07/10/20 05:29 Absolute Neutrophils 11.0 K/uL (1.8-8.0) H 07/10/20 05:29 Absolute Lymphocytes 2.0 K/uL (0.7-4.9) 07/10/20 05:29 Absolute Monocytes 0.7 K/uL (0.1-1.3) 07/10/20 05:29 Absolute Eosinophils 0.0 K/uL (0-0.5) 07/10/20 05:29 Absolute Basophils 0.2 K/uL (0-0.5) 07/10/20 05:29 Platelet Estimate Adeq 07/10/20 05:29 Clumped Platelets Present 07/10/20 05:29 Morphology Comment Not seen (NOT SEEN) 07/10/20 05:29 Sodium 139 mmol/L (136-145) 07/10/20 05:29 Potassium 4.1 mmol/L (3.5-5.1) 07/10/20 05:29 Chloride 109 mmol/L (98-107) H 07/10/20 05:29 Carbon Dioxide 25 mmol/L (21-32) 07/10/20 05:29 BUN 11 mg/dL (7-18) 07/10/20 05:29 Creatinine 0.53 mg/dL (0.55-1.3) L 07/10/20 05:29 Estimated GFR > 90 mL/min (=/>90) 07/10/20 05:29 Glucose 134 mg/dL (74-106) H 07/10/20 05:29 POC Glucose 128 mg/dL (65-120) H 07/10/20 19:56 Calcium 8.9 mg/dL (8.5-10.1) 07/10/20 05:29 Magnesium 2.3 mg/dL (1.8-2.4) 07/09/20 12:28 Total Bilirubin 0.3 mg/dL (0.2-1.0) 07/10/20 05:29 Direct Bilirubin 0.2 mg/dL (0-0.2) 07/09/20 12:28 AST 25 U/L (15-37) 07/10/20 05:29 ALT 29 U/L (12-78) 07/10/20 05:29 Alkaline Phosphatase 58 U/L (45-117) 07/10/20 05:29 Rapid Troponin I < 0.02 ng/mL (0.0-0.045) 07/09/20 12:28 Serum Total Protein 7.2 g/dL (6.4-8.2) 07/10/20 05:29 Albumin 3.2 g/dL (3.4-5.0) L 07/10/20 05:29 Globulin 4.0 g/dL (2.3-3.5) H 07/10/20 05:29 Albumin/Globulin Ratio 0.8 (1.1-1.8) L 07/10/20 05:29 Urine pH 6.5 (5.0-7.0) 07/09/20 12:47 Ur Specific [place] 1.015 (1.005-1.030) 07/09/20 12:47 Glucose (UA)(Auto) Negative (Negative) 07/09/20 12:47 Urine Ketones Negative (Negative) 07/09/20 12:47 Urine Blood Trace-intact (Negative) H 07/09/20 12:47 Urine Nitrite Negative (Negative) 07/09/20 12:47 Ur Leukocyte Esterase Negative (Negative) 07/09/20 12:47 Urine Total Protein Negative (Negative) 07/09/20 12:47 SARS-CoV-2 RNA (RT-PCR) Negative (NEGATIVE) 07/09/20 13:15 Smear Scan Ok (OK) 07/10/20 05:29 Conclusions/Impression: Assessment: 1. Cellulitis with abscess: Poncho rectal area and abdominal wound. 2. Sepsis 3. History of hepatitis-C with liver failure Plan: 1. Patient will likely need follow up outpatient with [facility] for I and D sides. Recommend patient be placed on oral doxycycline 100 mg b.i.d. for the next 2 weeks. Patient does have a history of liver failure however LFTs on this admission are within normal range. 2. Patient's vitals and clinical condition suspicious of sepsis on presentation. Blood cultures negative. 3. LFTs normal on this admission. -medical management per primary team. -continue monitor CBC and BMP -continue monitor for signs infection Planning care discussed with Dr. Fontana Thank you for consultation.
--- NOTE | 2020-07-13 13:43 | P.DS ---
Admission Date: 07/10/20 Discharge Date: 07/13/20 Disposition: ROUTINE DISCHARGE Discharge Condition: FAIR Reason for Admission: Abd abscess, cellulitis. - Problems (1) Abdominal wall abscess at site of surgical wound Current Visit: Yes Status: Acute (2) Leukocytosis Current Visit: Yes Status: Acute (3) Perirectal abscess Current Visit: Yes Status: Acute Brief History of Present Illness: 70 year old woman with hx of hysterectomy in June 2020 presented to the due to chills, rigor and night sweats a few weeks post hysterectomy. She saw her PCP who prescribed some antibiotics for cellulitis other anterior abdominal surgical wound site. CT abd/pelvis done revealed abdominal wall abscess. Patient admitted for further management. Hospital Course: Patient admitted to the medical floor and started on aggressive IV antibiotic therapy-IV cefepime and vancomycin. She was also noted to have perirectal abscess on the CT scan. She was seen by general surgeon-Dr. Saleem will performed incision and drainage of both the abdominal wall abscess in the perirectal abscess. Deep tissue wound cultures grew MRSA sensitive to several antibiotics. Patient was seen by infectious disease-Dr. Fontana who recommended 2 weeks of oral doxycycline based on the antibiotics sensitivity. Both wounds are packed during dressing per Dr. Saleem recommendation. Dr. Saleem has prescribed wound dressing to her. Patient did not meet criteria for sepsis. She is deemed stable for discharge. She will follow with Dr. Saleem at the wound Care [facility]. Vital Signs/Physical Exam: Temp Pulse Resp BP Pulse Ox 98.2 F 84 18 150/91 H 97 07/13/20 08:00 07/13/20 08:00 07/13/20 08:00 07/13/20 08:00 07/13/20 08:00 General: Alert, In no apparent distress, Oriented x3 Neck: JVD not distended Respiratory: Clear to auscultation bilaterally, Normal air movement Cardiovascular: Normal pulses, Regular rate/rhythm, Normal S1 S2 Gastrointestinal: Soft and benign, Non-distended Musculoskeletal: No swelling Integumentary: Other (Right lower quadrant anterior abdominal surgical wound packed nad dressed.) Neurological: Normal strength at 5/5 x4 extr Laboratory Data at Discharge: WBC 9.40 K/uL (4.3-10.9) D 07/12/20 05:40 Hgb 12.2 g/dL (12.0-15.0) 07/12/20 05:40 Hct 34.5 % (36.0-45.0) L 07/12/20 05:40 Plt Count 276 K/uL (152-406) 07/12/20 05:40 Sodium 141 mmol/L (136-145) 07/12/20 05:40 Potassium 3.7 mmol/L (3.5-5.1) 07/12/20 05:40 BUN 8 mg/dL (7-18) 07/12/20 05:40 Creatinine 0.59 mg/dL (0.55-1.3) 07/12/20 05:40 Glucose 90 mg/dL (74-106) 07/12/20 05:40 Magnesium 2.3 mg/dL (1.8-2.4) 07/09/20 12:28 Total Bilirubin 0.3 mg/dL (0.2-1.0) 07/10/20 05:29 AST 25 U/L (15-37) 07/10/20 05:29 ALT 29 U/L (12-78) 07/10/20 05:29 Alkaline Phosphatase 58 U/L (45-117) 07/10/20 05:29 Home Medications: Citalopram Hydrobromide [Celexa] 40 mg PO DAILY 07/09/20 Levothyroxine [Synthroid*] 50 mcg PO DAILY 07/09/20 Metoprolol Succinate 50 mg PO DAILY 07/09/20 Omeprazole [Prilosec] 40 mg PO DAILY 07/09/20 Rosuvastatin [Crestor*] 10 mg PO DAILY 07/09/20 lisinopriL [Lisinopril] 40 mg PO DAILY 07/09/20 Codeine/APAP [Tylenol #3*] 1 tab PO Q4H PRN #30 tab 07/13/20 Doxycycline Hyclate 100 mg PO BID #28 capsule 07/13/20 Melatonin 10 mg PO BEDTIME PRN PRN #30 tablet 07/13/20 Polyethyl Gly 3350 [Glycolax*] 17 gm PO BID PRN #60 packet 07/13/20 Senosides [Senokot*] 17.2 mg PO BID #120 tab 07/13/20 New Medications: Doxycycline Hyclate 100 mg PO BID #28 capsule Polyethyl Gly 3350 [Glycolax*] 17 gm PO BID PRN #60 packet PRN Reason: Constipation Melatonin 10 mg PO BEDTIME PRN PRN #30 tablet PRN Reason: Insomnia Senosides [Senokot*] 17.2 mg PO BID #120 tab Codeine/APAP [Tylenol #3*] 1 tab PO Q4H PRN #30 tab PRN Reason: Pain Scale 5-7 (Moderate) Diet: AHA Activity: No lifting more than 10 lbs Followup: Ginny Malloy NP [Primary Care Provider] - Eron Saleem MD [ACTIVE - CAN ADMIT] - 1-2 Weeks Time spent managing pt's care (in minutes): 36
[2020-07-13 14:38] VITALS: BP 123/77; TEMP 98.7
== END 2020-07-13 15:06 | disposition home or self-care (01) | DRG 982 ==
LOC: ER 11:21 → 2ND 16:26 → OBSVTOIN 07-10 21:40
PROVIDERS: ADMIT Internal Medicine Nephrology; ATTEND Internal Medicine
PROC: 0D9P0ZZ Drainage of Rectum, Open Approach (ICD-10-PCS; principal; 2020-07-10)
PROC: 0W9F3ZZ Drainage of Abdominal Wall, Percutaneous Approach (ICD-10-PCS; 2020-07-10)
DX: L02.211 Cutaneous abscess of abdominal wall (principal); K61.1 Rectal abscess; L03.311 Cellulitis of abdominal wall; I10 Essential (primary) hypertension; E78.5 Hyperlipidemia, unspecified; E03.9 Hypothyroidism, unspecified; D72.829 Elevated white blood cell count, unspecified; F17.210 Nicotine dependence, cigarettes, uncomplicated; B95.62 Methicillin resistant Staphylococcus aureus infection as the cause of diseases classified elsewhere; Z88.5 Allergy status to narcotic agent; Z91.048 Other nonmedicinal substance allergy status; Z90.710 Acquired absence of both cervix and uterus; Z79.890 Hormone replacement therapy; Z79.899 Other long term (current) drug therapy; Z96.659 Presence of unspecified artificial knee joint; Z20.822 Contact with and (suspected) exposure to COVID-19
CPT/HCPCS: 36415; 71045; 80048; 80053; 80076; 80202; 81003; 82947; 83735; 84484; 85025; 87040; 87070; 87075; 87077; 87186; 87205; 93005; 96361; 96365; 96375; 99285; G0378; J0692; J1100; J1650; J2250; J2405; J2704; J3010; J3370; J7030; J7040; U0003

== ENCOUNTER 2020-09-11 08:22 | Day surgery (SDC) | payer OTHER, MEDICARE ==
[2020-09-04 12:13] LABS: Absolute Lymphocytes (CBC) 2.7 K/uL (0.7-4.9); Basophils % 1.4 % (0-1.3); Hematocrit 40.2 % (36.0-45.0); Lymphocytes % 34.1 % (15.3-44.8); MPV 8.6 fL (7.6-11.3); RBC Red Blood Cell Count 4.21 M/uL (3.86-4.86)
[2020-09-04 12:22] LABS: Protime INR 1.04
--- NOTE | 2020-09-04 12:38 | RAD REPORT ---
EXAM DESCRIPTION: RAD - Chest Pa And Lat (2 Views) - 09/04/2020 12:31 pm CLINICAL HISTORY: PRE-OP Chest pain. COMPARISON: Chest Single View dated 07/09/2020 FINDINGS: The lungs are clear. The heart is normal in size. No displaced fractures. IMPRESSION: No acute or concerning finding suspected.
[2020-09-04 12:52] LABS: BUN Blood Urea Nitrogen 11 mg/dL (7-18); Bicarbonate 27 mmol/L (21-32); Glucose Level 119 mg/dL (74-106); Sodium Level 138 mmol/L (136-145)
[2020-09-04 13:28] LABS: Potassium 3.9 mmol/L (3.5-5.1)
[2020-09-11] MEDS ORDERED: KETOROLAC 30 MG/ML INJ ONE (08:50)
[2020-09-11] MEDS ORDERED: propofoL 200 MG/20 ML VIAL IV ONE (08:50)
[2020-09-11] MEDS ORDERED: LIDOCAINE 2% MPF 5 ML VIAL ONE (08:50)
[2020-09-11] MEDS ORDERED: FENTANYL CITR 100 MCG/2 ML ONE (08:50)
[2020-09-11] MEDS ORDERED: dexAMETHasone 4 MG/ML VIAL ONE (08:51)
[2020-09-11] MEDS ORDERED: MIDAZOLAM HCL 2 MG/2 ML INJ ONE (08:51)
[2020-09-11] MEDS ORDERED: ONDANSETRON 4 MG/2 ML VIAL ONE (08:51)
[2020-09-11] MEDS ORDERED: CEFAZOLIN/SWI 1gm 1 GM/10 ML SYR ONE (08:55)
[2020-09-11] MEDS ORDERED: Ringers Lactate 1,000 ML IV ONE (08:55)
[2020-09-11] MEDS ORDERED: BUPIVACAINE 0.25% PF 30 ML VIAL ONE (11:41)
--- NOTE | 2020-09-11 13:06 | P.BOP ---
Preoperative diagnosis: right knee medial meniscus tear Postoperative diagnosis: same Primary procedure: right knee partial medial meniscectomy Machine Binding Folder: NONE,NONE Estimated blood loss: 3 cc Specimen: none Findings: see dictation Anesthesia: General Complications: None Implants: none Fluids & blood products: per anesthesia record; TT: 29 mins @ 250 mmHg Transferred to: Recovery Room Condition: Good
[2020-09-11] MEDS ORDERED: HYDROCODONE/APAP 7.5/325 MG TAB ONE (14:08)
[2020-09-11 14:42] VITALS: BP 142/83; TEMP 97.8; O2SAT 98
--- NOTE | 2020-09-16 20:47 | OP ---
Date of Procedure: 09/11/2020 Surgeon: Saul Farooq MD Preoperative Diagnosis: Right knee medial meniscus tear. Postoperative Diagnosis: Right knee medial meniscus tear. Procedure Performed: Right knee arthroscopic partial medial meniscectomy. Anesthesia: General LMA. Fluids: Per Anesthesia record. Ebl: 3 cc. Specimens: None. Complications: None. Implants: None. Tourniquet Time: 29 minutes at 250 mmHg. Indication For Procedure: Isamar baeza is a 70-year-old female who presented to my clinical with sign s, symptoms, and MRI findings consistent with the right knee complex tear of her medial meniscus. I did discuss the patient at length risks and benefits associated with operative and nonoperative treat ment. She expressed understanding and elected to proceed with operative treatment. Description Of Procedure: After informed consent was obtained, the patient was identified in the pre operative holding area. The right lower extremity was marked. The patient was then brought back to the operating room, transferred to the operating table in supine fashion and placed under general LMA anesthesia. The right lower extremity was then prepped and draped in usual sterile fashion. A time -out was initiated. The correct patient and procedure were confirmed and identified. The patient di d receive preoperative prophylactic antibiotics. The right lower extremity was then exsanguinated us ing an Esmarch and the tourniquet was inflated to 250 mmHg. Standard anteromedial and anterolateral portals were created. The arthroscope was brought in and then diagnostic arthroscopy was performed. Arthroscope was brought in via the anterolateral portal into the patellofemoral joint. The patient was noted to have some fraying to the undersurface of her patella as well as some chondromalacia ibarra ges to her trochlear groove. The arthroscope was then brought into both medial and lateral gutters w ere no loose bodies found within the gutters. Arthroscope was then brought in the medial compartment where the patient is going to have a complex tear of the posterior horn of the medial meniscus as we ll as the body of the medial meniscus. A partial medial meniscectomy was performed using meniscal bi ters and arthroscopic shaver to smooth meniscal borders which was stable to probe. The scope was the n brought in the intercondylar notch. The patient was noted to have an intact ACL and PCL which were stable to probe. The arthroscope was then brought in the lateral compartment, the patient was noted to have an intact lateral meniscus which was stable to probe. There was no significant chondromalac ia noted on the lateral compartment. The arthroscopic instruments were then removed without complica tion. The wounds were then irrigated thoroughly with normal saline and portals were approximated usi ng 3-0 Monocryl. Sterile dressings were applied. Tourniquet was let down. The patient was awakened and transferred to PACU in stable condition. Postoperative Plan: She will be weightbearing as tolerated in the right lower extremity and follow u p in clinic 1 week for wound check. CV/MODL Voice ID: [id number] Report ID: [id number]
== END 2020-09-11 14:20 | disposition home or self-care (01) ==
LOC: OR 08:22
PROVIDERS: ATTEND Orthopaedic Surgery Sports Medicine
PROC: 0SBC4ZZ Excision of Right Knee Joint, Percutaneous Endoscopic Approach (ICD-10-PCS; principal; 2020-09-11 10:00)
DX: S83.241A Other tear of medial meniscus, current injury, right knee, initial encounter (principal); M25.561 Pain in right knee; M17.11 Unilateral primary osteoarthritis, right knee; Z20.822 Contact with and (suspected) exposure to COVID-19
CPT/HCPCS: 85025; 80048; 36415; 85610; 85730; 71046; 29881; U0003; J2704; J1100; J2250; J3010; J0690; J7120; J2405

== ENCOUNTER 2021-09-20 11:23 | Emergency (ER) | payer OTHER, MEDICARE ==
--- NOTE | 2021-09-20 11:54 | ER ---
Nurse's Notes [facility] Name: Isamar Jackson Age: 71 yrs Sex: Female : 1950 Arrival Date: 09/20/2021 Time: 11:25 Bed 10 Private MD: Ginny Malloy Diagnosis: Herpes Zoster Presentation: 09/20 11:48 Chief complaint: Patient states: back pain and fatigue about x 1week and noticed a vg1 "blister" under right eye this morning. Coronavirus screen: Client denies travel out of the [place] in the last 14 days. Ebola Screen: Patient denies exposure to infectious person. Patient denies travel to an Ebola-affected area in the 21 days before illness onset. Initial Sepsis Screen: Does the patient meet any 2 criteria? No. Patient's initial sepsis screen is negative. Does the patient have a suspected source of infection? No. Patient's initial sepsis screen is negative. Risk Assessment: Do you want to hurt yourself or someone else? Patient reports no desire to harm self or others. Onset of symptoms was September 20, 2021. 11:48 Method Of Arrival: Ambulatory vg1 11:48 Acuity: LOLIS 3 vg1 Triage Assessment: 11:51 General: Appears uncomfortable, Behavior is calm, cooperative. Pain: Complains of pain vg1 in right lower eyelid Pain currently is 0 out of 10 on a pain scale. Musculoskeletal: Circulation, motion, and sensation intact. Historical: - Allergies: 11:51 Codeine; vg1 11:51 dermabond; vg1 - PMHx: 11:51 HEP C; Hyperlipidemia; Hypertension; Thyroid problem; vg1 - Immunization history:: Client reports receiving the 2nd dose of the Covid vaccine. - Social history:: Smoking status: Patient reports the use of cigarette tobacco products, smokes one-half pack cigarettes per day. Screenin:09 Abuse screen: Denies threats or abuse. Nutritional screening: No deficits noted. tp1 Tuberculosis screening: No symptoms or risk factors identified. Fall Risk None identified. Vital Signs: 11:48 BP 117 / 83; Pulse 84; Resp 16; Temp 97.9; Pulse Ox 97% on R/A; Weight 75.3 kg; Height vg1 5 ft. 5 in. (165.10 cm); Pain 0/10; 11:48 Body Mass Index 27.62 (75.30 kg, 165.10 cm) vg1 ED Course: 11:25 Patient arrived in ED. mr 11:26 Ginny Malloy is Private Physician. mr 11:29 Ju Avila FNP is [facility]. jh7 11:29 Chirag Dee DO is Attending Physician. jh7 11:51 Triage completed. vg1 11:51 Arm band placed on. vg1 11:52 Ginny Malloy is Referral Physician. jh7 12:00 Pita Hernadez, RN is Primary Nurse. ld1 12:09 No provider procedures requiring assistance completed. Patient did not have IV access tp1 during this emergency room visit. 12:10 Bed in low position. Call light in reach. Side rails up X 1. tp1 Administered Medications: 12:04 Drug: Decadron (dexamethasone) 10 mg Route: IM; Site: left deltoid; tp1 12:08 Follow up: Response: Medication administered at discharge. tp1 Medication: 12:10 VIS not applicable for this client. tp1 Outcome: 11:53 Discharge ordered by . [facility] 12:08 Discharged to home ambulatory. tp1 12:08 Condition: good 12:08 Discharge instructions given to patient, Instructed on discharge instructions, follow up and referral plans. Demonstrated understanding of instructions, follow-up care, medications, Prescriptions given X 1. 12:10 Patient left the ED. tp1 Signatures: Annita Menard mr SchulerMarycarmen RN RN vg1 Pita Hernadez, BEA [facility] Kaylah Stern tp1 Ju Avila FNP [place] [id number]
--- NOTE | 2021-09-20 11:54 | EDPHYS ---
Physician Documentation [facility] Name: Isamar Jackson Age: 71 yrs Sex: Female : 1950 Arrival Date: 09/20/2021 Time: 11:25 Bed 10 Private MD: Ginny Malloy ED Physician Chirag Dee HPI: 09/20 11:55 This 71 yrs old Female presents to ER via Ambulatory with complaints of Back Pain, jh7 Fatigue,Facial Blister. 11:55 71-year-old female reports back pain, fatigue, and a rash with blisters that appeared jh7 on the right side of her face. She states that the back pain has occurred for a few days but that the rash popped up this morning. States that the blisters are starting to go in her mouth.. Historical: - Allergies: 11:51 Codeine; vg1 11:51 dermabond; vg1 - PMHx: 11:51 HEP C; Hyperlipidemia; Hypertension; Thyroid problem; vg1 - Immunization history:: Client reports receiving the 2nd dose of the Covid vaccine. - Social history:: Smoking status: Patient reports the use of cigarette tobacco products, smokes one-half pack cigarettes per day. ROS: 11:55 Constitutional: Negative for fever, chills, and weight loss, Eyes: Negative for injury, jh7 pain, redness, and discharge, ENT: Negative for injury, pain, and discharge, Cardiovascular: Negative for chest pain, palpitations, and edema, Respiratory: Negative for shortness of breath, cough, wheezing, and pleuritic chest pain, Abdomen/GI: Negative for abdominal pain, nausea, vomiting, diarrhea, and constipation, Neuro: Negative for headache, weakness, numbness, tingling, and seizure. 11:55 Back: Positive for pain at rest. 11:55 Skin: Positive for rash. 11:55 All other systems are negative. Exam: 11:55 Constitutional: This is a well developed, well nourished patient who is awake, alert, jh7 and in no acute distress. Eyes: Pupils equal round and reactive to light, extra-ocular motions intact. Lids and lashes normal. Conjunctiva and sclera are non-icteric and not injected. Cornea within normal limits. Periorbital areas with no swelling, redness, or edema. Cardiovascular: Regular rate and rhythm with a normal S1 and S2. No gallops, murmurs, or rubs. Normal PMI, no JVD. No pulse deficits. Respiratory: Lungs have equal breath sounds bilaterally, clear to auscultation and percussion. No rales, rhonchi or wheezes noted. No increased work of breathing, no retractions or nasal flaring. Abdomen/GI: Soft, non-tender, with normal bowel sounds. No distension or tympany. No guarding or rebound. No evidence of tenderness throughout. Back: No spinal tenderness. No costovertebral tenderness. Full range of motion. Neuro: Awake and alert, GCS 15, oriented to person, place, time, and situation. Motor strength 5/5 in all extremities. Sensory grossly intact. Normal gait. 11:55 Skin: zoster, Clustered vesicular rash present on the right side of face with a vesicle present on the right upper lip. 11:55 Neuro: Orientation: is normal, to person, place, time \T\ situation. Mentation: is jh7 normal, Motor: is normal, Sensation: is normal, Gait: is steady. Vital Signs: 11:48 BP 117 / 83; Pulse 84; Resp 16; Temp 97.9; Pulse Ox 97% on R/A; Weight 75.3 kg; Height vg1 5 ft. 5 in. (165.10 cm); Pain 0/10; 11:48 Body Mass Index 27.62 (75.30 kg, 165.10 cm) vg1 MDM: 11:29 Patient medically screened. [facility] 12:00 Data reviewed: vital signs, nurses notes. Data interpreted: Pulse oximetry: is 97 %. [facility] Interpretation: normal. Counseling: I had a detailed discussion with the patient and/or guardian regarding: the historical points, exam findings, and any diagnostic results supporting the discharge/admit diagnosis, to return to the emergency department if symptoms worsen or persist or if there are any questions or concerns that arise at home. ED course: Advised the patient that if she experiences any visual changes or the rash moves any closer to her eye, to seek urgent ophthalmology follow-up.. Administered Medications: 12:04 Drug: Decadron (dexamethasone) 10 mg Route: IM; Site: left deltoid; 1 12:08 Follow up: Response: Medication administered at discharge. [facility] Disposition: 21:54 Co-signature as Attending Physician, Chirag Dee DO I was immediately available on-site ms3 in the Emergency Department for consultation in the care of the patient. . Disposition Summary: 09/20/21 11:53 Discharge Ordered Location: Home [facility] Problem: new [facility] Symptoms: are unchanged [facility] Condition: Stable [facility] Diagnosis - Herpes Zoster [facility] Followup: [facility] - With: Ginny Malloy - When: 2 - 3 days - Reason: Continuance of care Discharge Instructions: - Discharge Summary Sheet [facility] - Ivan [facility] Forms: - Medication Reconciliation Form [facility] - Thank You Letter [facility] Prescriptions: - Valtrex 1 gram Oral tablet - take 1 tablet by ORAL route 3 times per day for 7 days; 21 tablet; Refills: 0, jh7 Product Selection Permitted Signatures: Marycarmen Schuler, RN RN vg1 Chirag Dee DO DO ms3 Kaylah Stern tp1 Ju Avila, GAS LEAK INSPECTOR GAS LEAK INSPECTOR [facility]
[2021-09-20] MEDS ORDERED: dexAMETHasone 10 MG/ML VIAL ONE (12:07)
[2021-09-20 12:34] VITALS: BP 117/83; TEMP 97.9; O2SAT 97
[2021-09-20] MEDS ORDERED: DIPHENHYDRAMINE 50 MG/ML VIAL ONE (14:09)
== END 2021-09-20 12:10 | disposition home or self-care (01) ==
LOC: ER 11:23
DX: B02.9 Zoster without complications (principal); I10 Essential (primary) hypertension; F17.210 Nicotine dependence, cigarettes, uncomplicated; Z88.5 Allergy status to narcotic agent; Z91.048 Other nonmedicinal substance allergy status
CPT/HCPCS: J1200; J1100; 96372; 99283

== ENCOUNTER 2021-09-21 07:38 | Emergency (ER) | payer OTHER, MEDICARE ==
[2021-09-21] MEDS ORDERED: TETRACAINE HCL 0.5% 4ML OPTH ONE (08:44)
[2021-09-21] MEDS ORDERED: FLUORESCEIN SODIUM 1 MG/WRAP ONE (08:44)
--- NOTE | 2021-09-21 09:20 | ER ---
Nurse's Notes [facility] Name: Isamar Jackson Age: 71 yrs Sex: Female : 1950 Arrival Date: 09/21/2021 Time: 07:40 Bed 13 Private MD: Ginny Malloy Diagnosis: Herpes Zoster Presentation: 09/21 08:24 Chief complaint: Patient states: Shingles since Monday on the face, was told to come jl7 back if it got worse. Blisters have gone up to the bottom lid of the right eye. Coronavirus screen: At this time, the client does not indicate any symptoms associated with coronavirus-19. Ebola Screen: No symptoms or risks identified at this time. Initial Sepsis Screen: Does the patient meet any 2 criteria? No. Patient's initial sepsis screen is negative. Does the patient have a suspected source of infection? No. Patient's initial sepsis screen is negative. Risk Assessment: Do you want to hurt yourself or someone else? Patient reports no desire to harm self or others. Onset of symptoms was September 19, 2021. Care prior to arrival: None. 08:24 Method Of Arrival: Ambulatory [facility] 08:24 Acuity: LOLIS 4 jl7 Triage Assessment: 08:31 General: Appears in no apparent distress. uncomfortable, Behavior is calm, cooperative, jl7 appropriate for age. Pain: Complains of pain in face Pain currently is 4 out of 10 on a pain scale. Historical: - Allergies: 08:31 dermabond; jl7 08:31 Levofloxacin; jl7 08:31 Sulfa (Sulfonamide Antibiotics); jl7 - Home Meds: 08:31 Metoprolol Tartrate Oral [Active]; citalopram oral [Active]; levothyroxine oral jl7 [Active]; amlodipine 10 mg tab [Active]; - PMHx: 08:31 HEP C; Hyperlipidemia; Hypertension; Thyroid problem; jl7 - PSHx: 08:31 Total abdominal hysterectomy; jl7 - Immunization history:: Client reports receiving the 2nd dose of the Covid vaccine. - Social history:: Smoking status: Patient reports the use of cigarette tobacco products, smokes one-half pack cigarettes per day. Vital Signs: 08:24 BP 138 / 78; Pulse 88; Resp 15; Temp 98.2; Pulse Ox 98% ; Weight 75.3 kg; Height 5 ft. jl7 5 in. (165.10 cm); Pain 4/10; 08:24 Body Mass Index 27.62 (75.30 kg, 165.10 cm) jl ED Course: 07:40 Patient arrived in ED. mr 07:41 Tito Malloya is Private Physician. mr 08:04 Kulwinder Lai PA is PHCP. [facility] 08:04 Chirag Dee DO is Attending Physician. [facility] 08:04 Kulwinder Lai PA is PHCP. [facility] 08:04 Chirag Dee DO is Attending Physician. [facility] 08:31 Triage completed. jl7 08:31 Arm band placed on right wrist. Patient placed in waiting room, Patient notified of [facility] wait time. 08:36 Stephanie House, BEA is Primary Nurse. jl7 09:00 Assist provider with eye exam of right eye. using fluorescein stain, Performed by Kulwinder JOLLY Patient tolerated well. Patient did not have IV access during this emergency room visit. 09:18 Rob Pérez MD is Referral Physician. [facility] Administered Medications: 09:33 Drug: Tetracaine Drops 0.5 % 1 drops Route: Ophthalmic; Site: right eye; jl7 09:33 Follow up: Response: No adverse reaction jl Outcome: 09:18 Discharge ordered by . [facility] 09:41 Discharged to home ambulatory. jl7 09:41 Condition: stable 09:41 Discharge instructions given to patient, Instructed on discharge instructions, follow up and referral plans. medication usage, Demonstrated understanding of instructions, follow-up care, medications, Prescriptions given X 1. 09:41 Patient left the ED. jl Signatures: Kulwinder Lai PA PA jmm Annita Menard mr Stephanie House, RN RN jl7 Corrections: (The following items were deleted from the chart) 08:34 08:31 Allergies: Codeine; jl7 jl7 09:41 09:00 Discharged to home ambulatory, jl7 jl7 09:41 09:00 Condition: stable jl jl 09:41 09:00 Discharge instructions given to patient, Instructed on discharge instructions, 7 follow up and referral plans. medication usage, Demonstrated understanding of instructions, follow-up care, medications, Prescriptions given X 1, jl
--- NOTE | 2021-09-21 09:20 | EDPHYS ---
Physician Documentation [facility] Name: Isamar Jackson Age: 71 yrs Sex: Female : 1950 Arrival Date: 09/21/2021 Time: 07:40 Bed 13 Private MD: Ginny Malloy ED Physician Chirag Dee HPI: 09/21 08:29 This 71 yrs old Female presents to ER via Ambulatory with complaints of Shingles. jmm 08:29 Onset: The symptoms/episode began/occurred gradually, 2 day(s) ago. Duration: the jmm symptoms are continuous. Aggravated by nothing. Alleviated by nothing. This is a 71 year old female recently diagnosed with shingles that presents to the ED with complaints of spreading to her right lower lid. Denies ocular pain. Concerned due to progression. . Historical: - Allergies: 08:31 dermabond; jl7 08:31 Levofloxacin; jl7 08:31 Sulfa (Sulfonamide Antibiotics); jl7 - Home Meds: 08:31 Metoprolol Tartrate Oral [Active]; citalopram oral [Active]; levothyroxine oral jl7 [Active]; amlodipine 10 mg tab [Active]; - PMHx: 08:31 HEP C; Hyperlipidemia; Hypertension; Thyroid problem; jl7 - PSHx: 08:31 Total abdominal hysterectomy; jl7 - Immunization history:: Client reports receiving the 2nd dose of the Covid vaccine. - Social history:: Smoking status: Patient reports the use of cigarette tobacco products, smokes one-half pack cigarettes per day. ROS: 08:29 Constitutional: Negative for fever, chills, and weight loss, Cardiovascular: Negative jmm for chest pain, palpitations, and edema, Respiratory: Negative for shortness of breath, cough, wheezing, and pleuritic chest pain. 08:29 Skin: Positive for 08:29 All other systems are negative. Exam: 08:29 Constitutional: This is a well developed, well nourished patient who is awake, alert, jmm and in no acute distress. Head/Face: atraumatic. Eyes: EOMI, no conjunctival erythema appreciated ENT: Moist Mucus Membranes Neck: Trachea midline, Supple Chest/axilla: Normal chest wall appearance and motion. Cardiovascular: Regular rate and rhythm. No edema appreciated Respiratory: Normal respirations, no respiratory distress appreciated Abdomen/GI: Non distended Back: Normal ROM 08:29 Skin: vesicular lesions noted to the right cheek. 08:29 Neuro: Orientation: is normal, Mentation: is normal, Memory: is normal. 09:05 MS/ Extremity: Moves all extremities, no obvious deformities appreciated, no edema jmm noted to the lower extremities Neuro: Awake and alert Psych: Behavior is normal, Mood is normal, Patient is cooperative and pleasant 09:05 Eyes: Conjunctiva: normal, Corneas: no acute changes, no dendritic lesions appreciated, a fluorescein strip employed to appreciate the findings. Vital Signs: 08:24 BP 138 / 78; Pulse 88; Resp 15; Temp 98.2; Pulse Ox 98% ; Weight 75.3 kg; Height 5 ft. jl7 5 in. (165.10 cm); Pain 4/10; 08:24 Body Mass Index 27.62 (75.30 kg, 165.10 cm) jl7 MDM: 08:29 Patient medically screened. [facility] 09:17 Data reviewed: vital signs, nurses notes. Counseling: I had a detailed discussion with jeana the patient and/or guardian regarding: the historical points, exam findings, and any diagnostic results supporting the discharge/admit diagnosis, the need for outpatient follow up, to return to the emergency department if symptoms worsen or persist or if there are any questions or concerns that arise at home. ED course: No dendritic lesions appreciated on exam using fluorescein and Oliva lamp. Patient advised follow-up with ophthalmology for further evaluation advised and strict return precautions. . 09/21 08:29 Order name: Eye Tray; Complete Time: 08:[address] [facility] 09/21 08:29 Order name: Fluoresene Opth strip; Complete Time: 08:[address] [facility] Administered Medications: 09:33 Drug: Tetracaine Drops 0.5 % 1 drops Route: Ophthalmic; Site: right eye; 7 09:33 Follow up: Response: No adverse reaction jl7 Disposition: 14:09 Co-signature as Attending Physician, Chirag Dee DO I was immediately available on-site ms3 in the Emergency Department for consultation in the care of the patient. . Disposition Summary: 09/21/21 09:18 Discharge Ordered Location: Home [facility] Condition: Stable [facility] Diagnosis - Herpes Zoster [facility] Followup: [facility] - With: Rob Pérez MD - When: 1 - 2 days - Reason: Recheck today's complaints, Continuance of care, Re-evaluation by your physician Discharge Instructions: - Discharge Summary Sheet [facility] Forms: - Medication Reconciliation Form [facility] - Thank You Letter [facility] - Antibiotic Education [facility] - Prescription Opioid Use [facility] Prescriptions: - Prednisone 20 mg Oral Tablet - take 3 tablets by ORAL route once daily for 12 days Please take please take 3 jmm tabs by mouth daily for 3 days, then take 2 tabs by mouth daily for 3 days, then take 1 tab by mouth daily for 3 days, then take one half tab by day daily for 3 days; 20 tablet; Refills: 0, Product Selection Permitted Signatures: Kulwinder Lai PA PA jmm Leal, Jahala, RN RN jl7 Chirag Dee DO DO ms3 Corrections: (The following items were deleted from the chart) 08:34 08:31 Allergies: Codeine; pinky jl7
[2021-09-21 09:47] VITALS: BP 138/78; TEMP 98.2; O2SAT 98
--- OUTSIDE RECORDS SUMMARY | 2021-09-23 14:05 | XMS REPORT | Clinical Summary ---
:1950 Author Organization [facility] MD [facility] Address [address] [place] [address] Care Team Providers Name Role Phone Izabela [place] MD Primary Care Provider Inga Jesús Unavailable Allergies Active Allergy Reactions Severity Noted Date Comments Levofloxacin Anaphylaxis, GI High 07/23/2014 Other reacti on(s): Intolerance, Nausea hives, h xavier And Vomiting Other reaction( s): hives, hives Sulfa (Sulfonamide Rash Low 03/10/2021 Antibiotics) Medications Medication Sig Dispensed Refills Start Date End Date Status levothyroxine Take 1 tablet by 0 Active (Synthroid) 50 mcg mouth daily. tablet atorvastatin (LIPITOR) Take 10 mg by 0 Active 10 mg tablet mouth daily. celecoxib (CeleBREX) Take 100 mg by 0 06/01/2020 Active 100 mg capsule mouth daily. citalopram (CeleXA) 20 Take 20 mg by 0 Active mg tablet mouth daily. cyclobenzaprine Take 10 mg by 0 Active (FLEXERIL) 10 mg tablet mouth 3 (three) times a day. gabapentin (NEURONTIN) Take 300 mg by 0 12/25/2020 Active 300 mg capsule mouth daily. levothyroxine 50 mcg Take 50 mcg by 0 Active cap mouth daily. lisinopril Take 20 mg by 0 Activ e (PRINIVIL,ZESTRIL) 20 mouth daily. mg tablet meloxicam (MOBIC) 15 mg Take 15 mg by 0 09/27/2018 Active tablet mouth daily. rosuvastatin (CRESTOR) Take 10 mg by 0 Active 10 mg tablet mouth daily. mupirocin (BACTROBAN) Apply topically 22 g 1 04/14/2021 Active 2% ointmentIndications: to affected Squamous cell carcinoma area(s) twice of hand <Right side> daily. 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, including shoulder 04/14/2021 [facility] Patient Access Services 04/14/2021 Travel 04/13/2021 Telephone Odalis Ayoub RN 04/06/2021 Lab Requisition Andrea Solano MD Chan, Maren M, MD 03/26/2021 Orders Only Dermatology Chetan, Squamous cell MD Izabela carcinoma of caban nd <Right side> (P rimary Dx) after 09/21/2020 Social History Tobacco Use Types Packs/Day Years Used Date Light Tobacco Smoker Smokeless Tobacco: Never Used Sex Assigned at Date Recorded Not on file Job Start Date Occupation Industry Not on file Not on file Not on file Obstetrics History Last Filed Vital Signs Vital Sign Reading Time Taken Comments Blood Pressure 135/81 04/14/2021 8:10 AM [employer] Pulse 77 04/14/2021 8:10 AM [employer] Temperature 36.7 C (98.1 F) 04/14/2021 8:10 AM [employer] Respiratory Rate 18 04/14/2021 8:10 AM [employer] Oxygen Saturation 96% 04/14/2021 8:10 AM [employer] Inhaled Oxygen Concentration - - Weight 81 kg (178 lb 9.2 oz) 04/14/2021 8:10 AM [employer] Height 167 cm (5' 5.75") 04/14/2021 8:10 AM [employer] Body Mass Index 29.04 04/14/2021 8:10 AM [employer] Plan of Treatment Health Maintenance Due Date Last Done Comments COVID-19 Vaccination (#1) 1950 Procedures Procedure Name Priority Date/Time Associated Comments Diagnosis UNLISTED PROCEDURE, Routine 04/14/2021 9:30 Actinic keratosis Results for this SKIN, MUCOUS MEMBRANE PM [employer] proced ure are in AND SUBCUTANEOUS TISSUE the results section. UNLISTED PROCEDURE, Routine 04/14/2021 9:25 Squamous cell Res ults for this SKIN, MUCOUS MEMBRANE PM [employer] carcinoma of hand p rocedure are in AND SUBCUTANEOUS TISSUE <Right s pepito> the results Squamous cell section. carcinoma of skin of right upper limb, including shoulder PATHOLOGY OUTSIDE Routine 02/18/2021 Results fo r this INTERPRETATION procedure are in the results section. after 09/21/2020 Results UNLISTED PROCEDURE, SKIN, MUCOUS MEMBRANE AND SUBCUTANEOUS TISSUE (04/14/2021 9:30 PM [employer]) Izabela Hoffmann MD - 04/14/2021 9:30 PM [employer] Huong Henderson MD 04/14/2021 9:33 PM 2 . Carbon dioxide laser ablation of a ctinic keratoses located on the right antecubital fossa, right nasal kavin sum, and right infraorbital cheek Site: right antecubital fossa, right yifan al dorsum, and right infraorbital cheek Laterality (if applicable): right Date/Time: 04/14/2021 9:30 PM Provider Information: Performed by: Izabela [place] MD Authorized by: Izabela [place] MD Tech Writer present?: yes Tech Writer: Huong Henderson MD (and Edil Contreras) Patient Diagnosis: Pre-operative diagnosis: actinic keratos es Post-operative diagnosis: unchanged Indication: Indications for procedure: to provide de finitive treatment Anesthesia: Local anesthesia used?: local anesthesia used Anesthesia: local infiltration Local anesthetic: lidocaine 1% with epin ephrine Anesthetic total (ml): 1 Sedation: Patient sedated?: patient not sedated Procedure Details: After the risks, benefits, alternatives to the various treatments options were discussed with the patient today, t he patient consented to undergo the procedure today. Risks include but are not limited to bleeding, infection, pain, scarring, incomplete re moval, recurrence, nerve damage and numbness. The patient consented to undergo CO2 laser therapy and the procedure progressed as follows: The pat ient was taken to the operative room, was positioned for maximum access to the treatment sites. Anesthesia was infused intradermally at the treatem ent sites. Protective eyeware was placed on all in the room and the door w as marked with the appropriate laser safety warning signs. The treatmen t area was draped in moist cloths and the target area was destroyed with t he CO2 laser: Active FX, 100 mJ, 250 Hz, CPG 1-3-5 (no n-fractionated) Number of actinic keratoses treated: 3 Specimen(s) Removed: Specimen(s) removed: no specimen collect ed Estimated Blood Loss: Estimated blood loss: none Complications: Complications: none Patient Disposition: Patient disposition: discharge to home Comments: ___ Izabela [place] MD DERM PROCEDURE ORDERABLES UNLISTED PROCEDURE, SKIN, MUCOUS MEMBRANE AND SUBCUTANEOUS TISSUE (04/14/2021 9:25 PM [employer]) Izabela Hoffmann MD - 04/14/2021 9:25 PM [employer] Huong Henderson MD 04/14/2021 9:33 PM 1 . Carbon dioxide laser ablation of s quamous cell carcinoma in situ located on the right proximal dorsal for earm and right radial dorsal hand Site: right proximal dorsal forearm, rig ht radial dorsal hand Laterality (if applicable): right Date/Time: 04/14/2021 9:25 PM Provider Information: Performed by: Izabela [place] MD Authorized by: Izabela [place] MD Tech Writer present?: yes Tech Writer: Huong Henderson MD (and Edil Contreras) Patient Diagnosis: Pre-operative diagnosis: squamous cell c arcinoma in situ Post-operative diagnosis: unchanged Indication: Indications for procedure: to provide de finitive treatment Anesthesia: Local anesthesia used?: local anesthesia used Anesthesia: local infiltration Local anesthetic: lidocaine 1% with epin ephrine Anesthetic total (ml): 0.5 Sedation: Patient sedated?: patient not sedated Procedure Details: After the risks, benefits, alternatives to the various treatments options were discussed with the patient today, t he patient consented to undergo the procedure today. Risks include but are not limited to bleeding, infection, pain, scarring, incomplete re moval, recurrence, nerve damage and numbness. The patient consented to undergo CO2 laser therapy and the procedure progressed as follows: The pat ient was taken to the operative room, was positioned for maximum access to the treatment sites. Anesthesia was infused intradermally at the treatem ent sites. Protective eyeware was placed on all in the room and the door w as marked with the appropriate laser safety warning signs. The treatmen t area was draped in moist cloths and the target area was destroyed with t he CO2 laser: Active FX, 100 mJ, 250 Hz, CPG 1-4-5 (no n-fractionated) Right proximal dorsal forearm Lesion size: 1.0 cm x 0.9 cm Margin: 0.2 cm Treatment size: 1.4 cm x 1.3 cm Right radial dorsal hand Lesion size: 1.0 cm x 1.5 cm Margin: 0.2 cm Treatment size: 1.4 cm x 1.9 cm Specimen(s) Removed: Specimen(s) removed: no specimen collect ed Estimated Blood Loss: Estimated blood loss: none Complications: Complications: none Patient Disposition: Patient disposition: discharge to home Comments: ___ Izabela [place] MD DERM PROCEDURE ORDERABLES Pathology Outside Interpretation (02/18/2021) Component Value Ref Test Analysis Performed Pathologis t Range Method Time At Signature Materials Accession#, Stained, Block, Unstained Collected Received 04/07/2021 [facility] Received A. [id number], 2 SS, 0 BLOCKS, 0 USS 5:0 6 PM B. [id number], 2 SS, 0 BLOCKS, 0 USS 02/18/2021 [employer] 02/18/2021 04/06/2021 04/06/2021 Diagnosis Outside ([id number], 2 SS, 0 BLOCKS, 0 USS, colle cted on 02/18/2021): 04/07/2021 [facility] Electronically 5:06 PM signed by Beth [place]. Skin, right antecubital fossa, shave (1x H&E:A-1): PEREZ Diaz MD on Hyperplastic actinic kerato sis with adnexal extension, present at tissue edges. 04/07/2021 at 5:05 PM B. Skin, right proximal dorsal forearm, shave (1x H&E: B-1) : SQUAMOUS CELL CARCINOMA IN SITU WITH ADNEXAL EXTENSION AND ACANTHOLYTIC FEATURES ARISING IN ASSOCIATION WITH HYPERPLASTI C ACTINIC KERATOSIS AND LICHENOID INFLAMMATION, PRESENT AT TISSUE EDGES. Outside ([id number], 2 SS, 0 BLOCKS, 0 USS, collected on 02/03): C. Skin, right radial dorsal hand, shave (1x H&E: C-1): SQUAMOUS CELL CARCINOMA, AT LEAST IN SITU, WITH FOCAL ADNEXAL EXTENSION, PRESENT AT TISSUE EDGES. Atypical cells extend to the base of the specimen. Invasion is not completely ruled out. D. Skin, lower sternum, shave (1x H&E:D-1): Seborrheic keratosis, inflamed, present at tissue edges. Comment This case was 04/07/2021 [facility] studied and 5:06 PM discussed at the [facility] dermatopathology faculty conference. Pin Cleaner(s) VGP, CAT, JLC, PN, 04/07/2021 [facility] DI 5:06 PM [employer] Disclaimer "Some tests 04/07/2021 [facility] reported here may 5:06 PM have been developed [employer] and performance characteristics determined by [facility]. These tests have not been specifically cleared or approved by the U.S. Food and Drug Administration. If applicable, controls were reviewed and showed appropriate reactivity." Specimen (Source) Anatomical Collection Method Collection Time Re ceived Time Location / / Volume Laterality Tissue 02/18/2021 04/06/2021 10:0 9 AM [employer] Tissue 02/18/2021 04/06/2021 10:0 9 AM [employer] Anna Alvarez MD LAB PATHOLOGY ORDERABLES Performing Organization Address City/State/ZIP Code Phon e Number [facility] [place] [address] [id number] [employer] [place] after 09/21/2020 Insurance Payer Benefit Plan Subscriber ID Effective Phone Address Typ e / Group Dates MEDICARE MEDICARE PART [id number] 2017-Pres [phone] [facility] Medicare A AND B ent [id number] [employer] [address] [facility] [place] [address] [place] [employer]-[place] [id number] 2021-Pres [address] [employer] OF Y ONLY ent [id number] [place] [address] Isamar Jackson Personal/Family Self 1950 [address] (Home) [place] [address] Care Teams [employer] Relationship Specialty Start Date End Date Izabela [place] MD PCP - General Dermatology 03/30/[address] [place] [id number] Jesús Xiong PCP - External Referring 03/30/[address] [place] [address] [id number]
--- OUTSIDE RECORDS SUMMARY | 2021-09-23 14:06 | XMS REPORT | Continuity of Care Document ---
:1950 Author Organization [facility] t Address [address] [place] [address] Care Team Providers Name Role Phone Chetan VELAZQUEZ Primary Care Physician Yaz Attending Clinician Unavailable SYSTEM, NOT IN Attending Clinician Unavailable MARIAELENA ELAM Attending Clinician Unavailable Usman Huffman Attending Clinician Unavailable Otoniel HAN Attending Clinician Unavailable Lucas CARRENO Attending Clinician LUCAS Attending Clinician Unavailable Chetan VELAZQUEZ Attending Clinician Arturo RN, M Attending Clinician Joelle Solano MD Attending Clinician Jeff Alvarez MD Attending Clinician Carter VELAZQUEZ H Attending Clinician Provider, Urgent Care Attending Clinician Unavailable Corrie SHARP Attending Clinician Unavailable Corrie Chavez Attending Clinician Jim Storm DO Attending Clinician [place] BERNAL Attending Clinician Unavailable EVERARDO CONTEH Attending Clinician Unavailable PRESTON Attending Clinician Unavailable Mariaelena Elam MD Attending Clinician MAJO ROJAS Attending Clinician Unavailable WILDA RAMOS Attending Clinician Unavailable MARIAELENA ELAM Admitting Clinician Unavailable DR YAZ Admitting Clinician Unavailable EVERARDO CONTEH Admitting Clinician Unavailable WILDA RAMOS Admitting Clinician Unavailable Payers Payer Name Policy Type Policy Number Effective Date Expiration Date S arely MEDICARE A B [id number] 2017 00:00:00 [facility] [id number] 2017 HEALTHCARE 00:00:[address] [facility] REVIEW [id number] 2019 00:00:00 ZZCDCREVIEW [id number] 2018 2018 00:00:00 00:00:00 Problems Condition Condition Condition Status Onset Resolution Last Treating Co mments Source Name Details Category Date Date Treatment Clinician Date Post-opera Post-opera Disease Active [facility] tive state tive state 9-10 Co llege 00:00: of 00 Medicin e S/P knee S/P knee Disease Active [facility] replacemen replacemen 8-01 Co llege t t 00:00: of 00 Medicin e Post-menop Post-menop Disease Active [facility] ausal ausal -22 College 00:00: of 00 Medicin e Overweight Overweight Disease Active Overview : Univers 07-25 Formattin ity of 00:00: g of this [place] 00 note Medical might be Branch different from the original. ICD10 Diagnosis Term Cardroom Attendant Utility Encounter Encounter Disease Active Overview: Univers for for 07-25 Formattin ity of routine routine 00:00: g of this [place] gynecologi gynecologi 00 note Me dical tabitha tabitha might be Branch examinatio examinatio different n n from the original. 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 07-25 [facility]ge 00:00: of 00 Medicin e Hypothyroi Hypothyroi Disease Active [facility] d d 07-25 College 00:00: of 00 Medicin e SCREENING SCREENING Disease Active 2005-03 Greenlee bernard FOR FOR 04-04 [place] MALIGNANCY MALIGNANCY 00:00: of 00 Medicin e OVERWEIGHT OVERWEIGHT Disease Active 2005-03 [facility] 04-04 College 00:00: of 00 Medicin e CIRRHOSIS CIRRHOSIS Disease Active 2005-03 Greenlee bernard OF LIVER OF LIVER 04-03 Colleg e 00:00: of 00 Medicin e HEPATITIS HEPATITIS Disease Active [facility] bernard C, CHRONIC C, CHRONIC Co llege of Medicin e Allergies, Adverse Reactions, Alerts Allergy Allergy Status Severity Reaction(s) Onset Inactive Treating Comm ents Source Name Type Date Date Clinician Sulfa Propensi Active Rash Univers (Sulfona ty to 1-05 ity of mide adverse 00:00: [place] Antibiot reaction 00 ics) [facility] Sulfa DA Active U [facility] (Sulfona 4-14 [facility] Antibiot 00 l of ics) [place] codeine DA Active U 2020- [facility] 4-14 [facility] 00:[facility]: [facility] 00 l of [place] Sulfa DA Active U VOMITING 2020- [facility] (Sulfona 4-14 [facility] mide 00:00: Hospita Antibiot 00 l of ics) [place] codeine DA Active U ITCHING 2020- [facility] 4-14 [facility] 00:[facility]: [facility] 00 l of [place] Sulfa DA Active U 2020-0 [facility] (Sulfona 4-12 [facility] mide 00:00: Hospita Antibiot 00 l of ics) [place] codeine DA Active U 2020-0 [facility] 4-12 [facility] 00:[facility]: [facility] 00 l of [place] Sulfa DA Active U VOMITING [facility] (Sulfona 4-12 [facility] mide 00:00: Hospita Antibiot 00 l of ics) [place] codeine DA Active U ITCHING [facility] 4-12 [facility] 00:00: [facility]ospita 00 l of [place] CODEINE Allergy Active [facility] SULFATE 817 00:00: 00 Sulfamet Propensi Active Nausea And [facility] hoxazole ty to Vomiting 18 Colleg e -Trimeth adverse 00:00: of oprim reaction 00 Medicin s to e drug SULFAMET Allergy Active N\\T\\V [facility]SL HOXAZOLE 09-20 -TRIMETH 00:00: OPRIM 00 LEVOFLOX Allergy Active N\\T\\V [facility] ACIN 09-20 00:00: 00 CODEINE Allergy Active Low Itching [facility] 09-20 00:00: 00 Codeine Propensi Active [facility] ty to 4-02 [place] adverse 00:00: of reaction 00 Medicin s to e drug Levaquin Propensi Active [facility] ty to 402 [place] adverse 00:00: of reaction 00 Medicin s to e drug Codeine Propensi Active Anaphylaxis Un alyse ty to 5-20 ity of adverse 00:00: [place] reaction 00 Medical s Branch Levoflox Propensi Active Anaphylaxis U nivers acin ty to 5-20 ity of adverse 00:00: [place] reaction 00 Medical s Branch Sulfa Propensi Active Other - See BactrimEx Univers (Sulfona ty to comments 5-20 treme ity of mide adverse 00:00: headache [place] Antibiot reaction 00 Medica l ics) s Branch CODEINE DRUG Active Anaphylaxis Univ ers INGREDI 5-20 ity of 00:00: [place] 00 Medical Branch LEVOFLOX DRUG Active Anaphylaxis Uni vers ACIN INGREDI 5-20 ity of 00:00: [place] 00 Medical Branch SULFA Drug Active Other-Cmnt Univer s (SULFONA Class 5-20 ity of MIDE 00:00: [place] ANTIBIOT 00 Medical ICS) Branch Levoflox Drug Active Nausea And Other Univ ers acin Allergy Vomiting 5-20 reaction( ity of 00:00: s): [place] 00 MD Mana jennings reaction( Cancer s): Center hives, hives Levaquin Adverse Active hives Common Reaction [facility] Codeine Adverse Active nausea and Comm on Sulfate Reaction vomiting Spiri t [facility] sulfa Adverse Active rash Common drugs Reaction [facility] Social History Social Habit Start Date Stop Date Quantity Comments Source History of Current smoker [facility] Col lege of tobacco use Medicine Alcohol Comment Alcoholic [facility] Co llege of Drinks/day: no Medicine Exposure to Not sure [facility]-CoV-2 [facility] (event) Branch Tobacco use and 2021-04-14 2021-04-14 Smokeless tobacco Un iversity of exposure 00:00:00 00:00:00 non-user [place] MD Matthew call [facility] Alcohol intake 2019-09-17 2019-09-17 Current [facility] lege of 00:00:00 00:00:00 non-drinker of Medicine alcohol (finding) Sex Ass[birth year] Universit y of 00:00:00 00:00:00 [place] MD Matthew call [facility] Smoking Status Start Date Stop Date Source Light tobacco smoker 2021-04-14 00:00:00 Univers ity of [facility] [place] Never smoker [facility] Former smoker 2019-09-17 00:00:00 2019-09-17 00:00:00 [facility] lainey of [facility] Medications Ordered Filled Start Stop Current Ordering Indication Dosage Frequency Signature Comments Components Source Medication Medication Date Date Medication? Clinician (SIG) Name Name citalopram Yes 20mg Take 20 mg U nivers (CeleXA) 20 2-09 by mouth ity of mg tablet 08:13: daily. [place] [address] MD Raj claudio [facility] cyclobenzap Yes 10mg Take 10 mg Univers rine 2-09 by mouth 3 ity of (FLEXERIL) 08:13: (three[place] 10 mg 12 times a tablet day. Raj claudio [facility] levothyroxi Yes 50ug Take 50 Uni vers ne 50 mcg 2-09 mcg by ity of cap 08:13: mouth [place] 12 daily. MD Raj claudio [facility] lisinopril Yes 20mg Take 20 mg U nivers (PRINIVIL,Z 2-09 by mouth ity of ESTRIL) 20 08:13: daily. [place] mg tablet 12 [facility] rosu[facility] Yes 10mg Take 10 mg Univers n (CRESTOR) 2-09 by mouth ity of 10 mg 08:13: daily. [place] tablet [address] [facility] citalopram Yes 20mg Take 20 mg U nivers (CeleXA) 20 2-09 by mouth ity of mg tablet 08:13: daily. 12 MD Raj claudio [facility] cyclobenzap Yes 10mg Take 10 mg Univers rine 2-09 by mouth 3 ity of (FLEXERIL) 08:13: (three[place] 10 mg 12 times a MD tablet day. [facility] levothyroxi Yes 50ug Take 50 Uni vers ne 50 mcg 2-09 mcg by ity of cap 08:13: mouth [place] 12 daily. MD Raj claudio [facility] lisinopril Yes 20mg Take 20 mg U nivers (PRINIVIL,Z 2-09 by mouth ity of ESTRIL) 20 08:13: daily. [place] mg tablet 12 [facility] rosuvastati Yes 10mg Take 10 mg Univers n (CRESTOR) 2-09 by mouth ity of 10 mg 08:13: daily. [place] tablet 12 [facility] levothyroxi Yes 1{tbl} Take 1 Un alyse ne 2-09 tablet by ity of (Synthroid) 08:13: mouth [place] 50 mcg 11 daily. tablet [facility] levothyroxi Yes 1{tbl} Take 1 Un alyse ne 2-09 tablet by ity of (Synthroid) 08:13: mouth [place] 50 mcg 11 daily. MD [facility]ae [facility] atorvastati Yes 10mg Take 10 mg Univers n (LIPITOR) 2-09 by mouth ity of 10 mg 08:13: daily. [place] tablet [address] [facility] atorvastati Yes 10mg Take 10 mg Univers n (LIPITOR) 2-09 by mouth ity of 10 mg 08:13: daily. 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 [facility] gabapentin 2020-03 Yes 300mg Take 1 Univ ers 300 mg 0-22 capsule by ity of capsule 00:00: mouth 3 [place] 00 (three) Medical times Branch daily. gabapentin 2020-03 Yes 300mg Take 1 Univ ers 300 mg 0-22 capsule by ity of capsule 00:00: mouth 3 [place] 00 (three) Medical times Branch daily. gabapentin 2020-03 Yes 300mg Take 1 Univ ers 300 mg 0-22 capsule by ity of capsule 00:00: mouth 3 [place] 00 (three) Medical times Branch daily. gabapentin 2020-03 Yes 300mg Take 1 Univ ers 300 mg 0-22 capsule by ity of capsule 00:00: mouth 3 [place] 00 (three) Medical times Branch daily. gabapentin 2020-03 Yes 300mg Take 300 Un alyse (NEURONTIN) 0-22 mg by ity of 300 mg 00:00: mouth [place] capsule 00 daily. MD Raj claudio [facility] gabapentin 2020-03 Yes 300mg Take 300 Un alyse (NEURONTIN) 0-22 mg by ity of 300 mg 00:00: mouth [place] capsule 00 daily. MD Raj claudio [facility] levothyroxi 2020-03 Yes [id number] 50ug Take 1 Univers ne 0-15 tablet by ity of (SYNTHROID) 00:00: mouth [place] 50 mcg 00 every Medical tablet morning. [place] levothyroxi 2020-03 Yes [id number] 50ug Take 1 Univers ne 0-15 tablet by ity of (SYNTHROID) 00:00: mouth [place] 50 mcg 00 every Medical tablet morning. [place] levothyroxi 2020-03 Yes [id number] 50ug Take 1 Univers ne 0-15 tablet by ity of (SYNTHROID) 00:00: mouth [place] 50 mcg 00 every Medical tablet morning. Branch levothyroxi 2020-03 Yes [id number] 50ug Take 1 Univers ne 0-15 tablet by ity of (SYNTHROID) 00:00: mouth [place] 50 mcg 00 every Medical tablet morning. Branch levothyroxi 2020-03 Yes [id number] 50ug Take 1 Univers ne 0-15 tablet by ity of (SYNTHROID) 00:00: mouth [place] 50 mcg 00 every Medical tablet morning. Branch gabapentin 2020-03- No [id number] 300mg Take 1 Univers ER 300 mg 0-15 10-22 tablet by ity of tablet, 00:00: 00:00 mouth [place] extended 00 :00 daily. Medical release 24 Branch hr cyclobenzap Yes 10mg Take 10 mg Univers rine 10 mg 4-21 by mouth 3 ity of tablet 08:58: (three) [place] 14 times Medical daily. Branch citalopram 0 Yes 40mg Take 40 mg U nivers 40 mg 4-21 by mouth ity of tablet 08:58: daily. [address] lisinopril 0 Yes 20mg Take 20 mg U nivers 20 mg 4-21 by mouth ity of tablet 08:58: daily. [address] metoprolol 0 Yes 50mg Take 50 mg U nivers succinate 4-21 by mouth ity of XL 50 mg 24 08:58: daily. [place] hr tablet 14 [facility] Branch cyclobenzap Yes 10mg Take 10 mg Univers rine 10 mg 4-21 by mouth 3 ity of tablet 08:58: (three) [place] 14 times Medical daily. Branch citalopram 0 Yes 40mg Take 40 mg U nivers 40 mg 4-21 by mouth ity of tablet 08:58: daily. [address] lisinopril 0 Yes 20mg Take 20 mg U nivers 20 mg 4-21 by mouth ity of tablet 08:58: daily. [address] metoprolol 0 Yes 50mg Take 50 mg U nivers succinate 4-21 by mouth ity of XL 50 mg 24 08:58: daily. [place] hr tablet 14 [facility] cyclobenzap 0 Yes 10mg Take 10 mg Univers rine 10 mg 4-21 by mouth 3 ity of tablet 08:58: (three) [place] 14 times Medical daily. Branch citalopram 2020-0 Yes 40mg Take 40 mg U nivers 40 mg 4-21 by mouth ity of tablet 08:58: daily. [address] lisinopril 2020-0 Yes 20mg Take 20 mg U nivers 20 mg 4-21 by mouth ity of tablet 08:58: daily. [address] metoprolol 2020-0 Yes 50mg Take 50 mg U nivers succinate 4-21 by mouth ity of XL 50 mg 24 08:58: daily. [place] hr tablet [address] [place] [address] cyclobenzap 0 Yes 10mg Take 10 mg Univers rine 10 mg 4-21 by mouth 3 ity of tablet 08:58: (three) [place] [address] times Medical daily. Branch citalopram 2020-0 Yes 40mg Take 40 mg U nivers 40 mg 4-21 by mouth ity of tablet 08:58: daily. [address] lisinopril 2020-0 Yes 20mg Take 20 mg U nivers 20 mg 4-21 by mouth ity of tablet 08:58: daily. [address] metoprolol 2020-0 Yes 50mg Take 50 mg U nivers succinate 4-21 by mouth ity of XL 50 mg 24 08:58: daily. [place] hr tablet [address] [place] [address] cyclobenzap 0 Yes 10mg Take 10 mg Univers rine 10 mg 4-21 by mouth 3 ity of tablet 08:58: (three) [place] [address] times Medical daily. Branch citalopram 2020-0 Yes 40mg Take 40 mg U nivers 40 mg 4-21 by mouth ity of tablet 08:58: daily. [address] lisinopril 2020-0 Yes 20mg Take 20 mg U nivers 20 mg 4-21 by mouth ity of tablet 08:58: daily. [address] metoprolol 2020-0 Yes 50mg Take 50 mg U nivers succinate 4-21 by mouth ity of XL 50 mg 24 08:58: daily. [place] hr tablet [address] [place] [address] cefUROXime 2020-0 Yes [id number] 250mg Take 1 Univers 250 mg 4-21 tablet by ity of tablet 00:00: mouth 2 [place] 00 (two) Medical times Branch daily. cefUROXime 2021-0 Yes [id number] 250mg Take 1 Univers 250 mg 4-21 tablet by ity of tablet 00:00: mouth 2 (two) Medical times Branch daily. cefUROXime 1-0 Yes [id number] 250mg Take 1 Univers 250 mg 4-21 tablet by ity of tablet 00:00: mouth 2 (two) Medical times Branch daily. cefUROXime 2020-0 Yes [id number] 250mg Take 1 Univers 250 mg 4-21 tablet by ity of tablet 00:00: mouth 2 (two) Medical times Branch daily. cefUROXime 2020-0 Yes [id number] 250mg Take 1 Univers 250 mg 4-21 tablet by ity of tablet 00:00: mouth 2 (two) Medical times Branch daily. celecoxib Yes 100mg Take 100 Uni vers (CeleBREX) 3-29 mg by ity of 100 mg 00:00: mouth [place] capsule 00 daily. MD [facility] celecoxib Yes 100mg Take 100 Uni vers (CeleBREX) 3-29 mg by ity of 100 mg 00:00: mouth [place] capsule 00 daily. MD Raj claudio [facility] atorvastati 2019-03 Yes 10mg Take 10 mg Univers n 10 mg 0-09 by mouth ity of tablet 14:09: at [place] [address] bedtime. Medical Branch atorvastati 2019-03 Yes 10mg Take 10 mg Univers n 10 mg 0-09 by mouth ity of tablet 14:09: at [place] [address] bedtime. Medical Branch atorvastati 2019-03 Yes 10mg Take 10 mg Univers n 10 mg 0-09 by mouth ity of tablet 14:09: at [place] [address] bedtime. Medical Branch atorvastati 2019-03 Yes 10mg Take 10 mg Univers n 10 mg 0-09 by mouth ity of tablet 14:09: at [place] [address] bedtime. Medical Branch atorvastati 2019-03 Yes 10mg Take 10 mg Univers n 10 mg 0-09 by mouth ity of tablet 14:09: at [place] [address] bedtime. Medical Branch citalopram Yes 40mg Take 40 mg [facility] (CELEXA) 40 7-14 by mouth Mike ege MG tablet 14:28: daily. of 49 Medicin e lisinopril Yes 20mg Take 20 mg [facility] (PRINIVIL, 7-14 by mouth Colle ge ZESTRIL) 20 14:28: daily. of MG tablet 49 Medicin e levothyroxi Yes 50ug Take 50 Greenlee bernard ne 7-14 mcg by [place] (SYNTHROID) 14:28: mouth of 50 MCG 49 daily. Medicin tablet e Na Yes [SUPREP] [facility] Sulfate-K 7-14 Take as College Sulfate-Mg 00:00: directed. of Sulf 00 Medicin (SUPREP e BOWEL PREP KIT) 17.5-3.13-1 .6 GM/177ML SOLN meloxicam Yes TAKE 1 [place] (MOBIC) 15 7-25 TABLET BY Mike ege MG tablet 00:00: MOUTH of 00 EVERY DAY Medicin e meloxicam Yes 15mg Take 15 mg Un alyse (MOBIC) 15 7-25 by mouth ity o f mg tablet 00:00: daily. [facility] mel[facility]am Yes 15mg Take 15 mg Un alyse (MOBIC) 15 7-25 by mouth ity o f mg tablet 00:00: daily. [facility] rosuvastati Yes TK 1 T PO B [facility] n (CRESTOR) 5-14 QD College 40 MG 00:00: of tablet 00 Medicin e PREVNAR 13 Yes ADM 0.5ML [facility] SUSP -14 IM UTD College 00:00: of 00 Medicin e metoprolol Yes TK 1 T PO [facility] (TOPROL-XL) 5-14 QD College 200 MG XL 00:00: of tablet 00 Medicin e acyclovir Yes [id number] 400mg Take 1 Univers (ZOVIRAX) 7-06 tablet by ity o f 400 mg 00:00: mouth 2 [place] tablet 00 (two) Medical times Branch daily. acyclovir Yes [id number] 400mg Take 1 Univers (ZOVIRAX) 7-06 tablet by ity o f 400 mg 00:00: mouth 2 [place] tablet 00 (two) Medical times Branch daily. acyclovir Yes [id number] 400mg Take 1 Univers (ZOVIRAX) 7-06 tablet by ity o f 400 mg 00:00: mouth 2 [place] tablet 00 (two) Medical times Branch daily. acyclovir Yes [id number] 400mg Take 1 Univers (ZOVIRAX) 7-06 tablet by ity o f 400 mg 00:00: mouth 2 [place] tablet 00 (two) Medical times Branch daily. acyclovir Yes [id number] 400mg Take 1 Univers (ZOVIRAX) 7-06 tablet by ity o f 400 mg 00:00: mouth 2 [place] tablet 00 (two) Medical times Branch daily. CALCIUM 2005-03 Yes 1 tab BID [place] 600-200 1-30 College MG-UNIT OR 00:00: of TABS 00 Medicin e MILK 2005-03 Yes 1 cap [place] THISTLE 150 1-30 daily College MG OR CAPS 00:00: of 00 Medicin e Rosuvastati Rosuvastati Yes Ginny 1 tablet Common n Calcium n Calcium [facility] Immunizations Ordered Filled Immunization Date Status Comments Sourc e Immunization Name Name TDAP 2014-07-23 Completed University of 00:00:00 [facility] TDAP 2014-07-23 Completed University of 00:00:00 [facility] TDAP 2014-07-23 Completed University of 00:00:00 [facility] TDAP 2014-07-23 Completed University of 00:00:00 [facility] TDAP 2014-07-23 Completed [facility] 00:00:00 [facility] Vital Signs Vital Name Observation Time Observation Value Comments Source HEIGHT 2019-09-23 00:00:00 165.1 cm WEIGHT 2019-09-23 00:00:00 86.456 kg Systolic blood 2021-06-10 14:16:00 156 mm[Hg] Univer sity of pressure [facility] Diastolic blood 2021-06-10 14:16:00 81 mm[Hg] Unive [facility] Heart rate 2021-06-10 14:16:00 88 /min [facility] Body temperature 2021-06-10 14:16:00 36.33 Martha [facility] Respiratory rate 2021-06-10 14:16:00 18 /min [facility] Body height 2021-06-10 14:16:00 165.1 cm Universi ty of [facility] Body weight 2021-06-10 14:16:00 79.516 kg Universi ty of [facility] BMI 2021-06-10 14:16:00 29.17 kg/m2 Universi ty [facility] Oxygen saturation in 2021-06-10 14:16:00 98 /min University of Arterial blood by [facility] Pulse oximetry Branch WEIGHT 2020-03-30 09:41:00 81.647 kg HEIGHT 2020-03-09 08:50:00 165.1 cm WEIGHT 2020-03-09 08:50:00 83.915 kg HEIGHT 2020-03-09 08:50:00 165.1 cm WEIGHT 2020-03-09 08:50:00 83.915 kg WEIGHT 2020-02-17 11:36:00 67.495 kg WEIGHT 2020-02-17 11:36:00 67.495 kg HEIGHT 2019-09-23 00:00:00 165.1 cm WEIGHT 2019-09-23 00:00:00 86.456 kg Body height 2019-09-17 14:26:00 165.1 cm [facility] C [facility]lege of Medicine Body weight 2019-09-17 14:26:00 87.816 kg [facility] C [facility] of Medicine BMI 2019-09-17 14:26:00 32.22 kg/m2 [facility] C [facility] of Medicine Body height 2019-09-17 14:26:00 165.1 cm [facility] C [facility] of Medicine Body weight 2019-09-17 14:26:00 87.816 kg [facility] C [facility] of Medicine BMI 2019-09-17 14:26:00 32.22 kg/m2 [facility] C ollege of Medicine HEIGHT 2019-07-22 00:00:00 165.1 cm WEIGHT 2019-07-22 00:00:00 86.183 kg HEIGHT 2019-07-22 00:00:00 165.1 cm WEIGHT 2019-07-22 00:00:00 86.183 kg Systolic blood 2021-04-14 14:10:41 135 mm[Hg] Univer sity of pressure Arias Stoddard [facility] Diastolic blood 2021-04-14 14:10:41 81 mm[Hg] Unive rsity of pressure Arias [facility] Heart rate 2021-04-14 14:10:41 77 /min Universi ty [facility] MD [facility] Body temperature 2021-04-14 14:10:41 36.72 Martha Univ ersity of [place] MD [facility] Respiratory rate 2021-04-14 14:10:41 18 /min [facility] Oxygen saturation in 2021-04-14 14:10:41 96 /min [facility] Arterial blood by Arias fontanez Pulse oximetry Cancer Center Body height 2021-04-14 14:10:00 167 cm Universi ty [facility] MD [facility] Body weight 2021-04-14 14:10:00 81 kg Universi ty [facility] MD [facility] BMI 2021-04-14 14:10:00 29.04 kg/m2 Universi ty [facility] MD [facility] Procedures Procedure Date / Time Performing Clinician Source Performed XR WRIST 3+ VW LEFT 2021-06-10 14:56:00 Sintia Zavala [facility] ty [facility] Branch XR HAND 3+ VW LEFT 2021-06-10 14:56:00 [facility] y of [facility] XR WRIST 3+ VW LEFT 2021-06-10 14:56:00 Lucas Sintia [facility] ty [facility] UNLISTED PROCEDURE, SKIN, 2021-04-15 03:30:51 Izabela Benton U [facility] MUCOUS MEMBRANE AND [facility] Cancer SUBCUTANEOUS TISSUE Center UNLISTED PROCEDURE, SKIN, 2021-04-15 03:25:03 Izabela Benton U [facility] MUCOUS MEMBRANE AND [facility] Cancer SUBCUTANEOUS TISSUE Center PATHOLOGY OUTSIDE 2021-02-18 00:00:00 Anna Alvarez [facility] INTERPRETATION [facility] Center Plan of Care Planned Activity Planned Date Details Comments Source Future Scheduled 2021-09-08 COVID-19 University of Test 07:51:15 Vaccination (#1) Arias ramirez [code = COVID-19 Cancer Cent er Vaccination (#1)] Future Scheduled 2021-09-08 COVID-19 University of Test 07:51:15 Vaccination (#1) Arias ramirez [code = COVID-19 Cancer Cent er Vaccination (#1)] Future Scheduled TSH [code = Ordered: [facility] ege of Test 64521-7] 09/17/2019 Medicine Future Scheduled T4 FREE [code = Ordered: [facility] [facility] ollege of Test 3024-7] 09/17/2019 Medicine Future Scheduled TRYPTASE [code = Ordered: [facility] of Test 35484] 09/17/2019 Medicine Future Scheduled 5 HIAA QUANT,24HR Ordered: [facility] Test URINE [code = 09/17/2019 Medicine 38867] Future Scheduled MAMMOGRAM ANNUAL [facility] Test [code = MAMMOGRAM Medicine ANNUAL] Future Scheduled TETANUS SHOT [facility] ege of Test (ADULT) [code = Medicine TETANUS SHOT (ADULT)] Future Scheduled BMI FOLLOW UP PLAN [facility] Test [code = BMI FOLLOW Medicine UP PLAN] Future Scheduled MEDICARE AWV [facility] ege of Test (Initial) [code = Medicine MEDICARE AWV (Initial)] Future Scheduled OSTEOPOROSIS [facility] ege of Test SCREENING [code = Medicine OSTEOPOROSIS SCREENING] Future Scheduled PNEUMOVAX >=65 [facility] llege of Test (PPSV23) [code = Medicine PNEUMOVAX >=65 (PPSV23)] Future Scheduled FLU VACCINE > 6 [facility] ollege of Test MONTHS [code = FLU Medicine VACCINE > 6 MONTHS] Future Scheduled FALL SCREEN [code = [facility] Test FALL SCREEN] Medicine Future Scheduled COLON CANCER [facility] ege of Test SCREENING: Medicine COLONOSCOPY [code = COLON CANCER SCREENING: COLONOSCOPY] Future Scheduled EGD W/MAC - GI DEPT 1 Occurrences [facility] Test [code = 15403] starting Medicine 09/17/2019 until 03/19/2020 Future Scheduled COLONOSCOPY W MAC 1 Occurrences [facility] Test GI DEPT [code = starting Medicine 02603] 09/17/2019 until 03/19/2020 Encounters Start End Encounter Admission Attending Care Care Encounter Source Date/Time Date/Time Type Type Clinicians Facility Department ID 2021-09-21 Outpatient CONTRERAS Malloy [facility] [id number] Common 09:49:01 Ginny [facility] 2021-07-26 Outpatient CONTRERAS Malloy [facility] [id number] Common 10:31:05 Ginny [facility] 2021-03-31 Outpatient Butler, STLMLC STLMLC [id number] Common 14:25:42 Ginny 93627 [facility] 2021-03-31 Outpatient Butler, STLMLC STLMLC [id number] Common 13:46:54 Ginny 27002 [facility] 2021-03-31 Outpatient Butler, STLMLC STLMLC [id number] Common 13:46:38 Ginny 96277 [facility] 2021-03-31 Outpatient Butler, STLMLC STLMLC [id number] Common 12:45:41 Ginny 14887 [facility] 2021-03-31 Outpatient Butler, STLMLC STLMLC [id number] Common 12:40:35 Ginny 76191 [facility] 2021-03-31 Outpatient Butler, STLMLC STLMLC [id number] Common 12:35:22 Ginny 23360 [facility] 2021-03-31 Outpatient Butler, STLMLC STLMLC [id number] Common 12:31:10 Ginny 99137 [facility] 2021-03-31 Outpatient Butler, STLMLC STLMLC [id number] Common 12:27:51 Ginny 42823 [facility] 2021-03-31 Outpatient Butler, STLMLC STLMLC [id number] Common 12:26:03 Ginny 86460 [facility] 2021-03-31 Outpatient Butler, STLMLC STLMLC [id number] Common 12:21:28 Ginny 76125 [facility] 2021-03-31 Outpatient Butler, STLMLC STLMLC [id number] Common 12:15:21 Ginny 36562 [facility] 2021-03-31 Outpatient Butler, STLMLC STLMLC [id number] Common 12:06:05 Ginny 82199 [facility] 2021-03-31 Outpatient Butler, STLMLC STLMLC [id number] Common 12:00:12 Ginny 58307 [facility] 2021-03-31 Outpatient Yaz, STLMLC STLMLC [id number] Common 11:38:05 Ginny 54090 [facility] 2021-03-25 Outpatient SYSTEM, [facility] [id number] 14:42:06 PROVIDER Richi claudio 2020-12-09 Outpatient , [facility] Surgery [id number] SLE 00:23:51 ISAMAR 2020-06-17 Inpatient BERTA Huffman, HCAWH DAYS [id number] HCA 11:30:00 Dolar [id number] [facility] 2021-12-17 2021-12-17 Outpatient R CARTER [facility] [id number] Univers 09:30:00 09:30:00 [facility] [id number] [facility] 2021-09-20 2021-09-20 ambulatory STLMLC STLMLC [id number] Common 00:00:00 00:00:00 [facility] 2021-07-28 2021-07-28 ambulatory STLMLC STLMLC [id number] Common 00:00:00 00:00:00 [facility] 2021-06-10 2021-06-10 [facility] 1.2.840.114 [id number] Univers 09:37:12 23:59:00 Encounter [facility] 350.1.13.[address] [facility] 4.2.7.2.686 Facundo as DILLON?BLEA [phone] [address] OFFICE [facility] 2021-06-10 2021-06-10 [facility] [id number] Univers 09:37:11 23:59:00 [facility] 2021-06-10 2021-06-10 [facility] 1.2.840.114 [id number] Univers 09:37:11 23:59:00 Encounter [facility] 350.1.13.[address] [facility] 4.2.7.2.686 Facundo as DILLON?BLEA [phone] Nd dical [address] OFFICE [facility] 2021-06-10 2021-06-10 [facility] 1.2.840.114 [id number] Univers 09:20:00 09:55:18 Care [facility] 350.1.13.10 it y of [place] 4.2.7.2.686 Facundo as DILLON?BLEA [phone] Nd zeina [address] MEDICAL OFFICE BUILDING 2021-06-10 2021-06-10 Outpatient R [facility] [id number] Univers 09:20:00 09:20:00 [id number] ity of [facility] 2021-04-14 2021-04-14 Office Chetan, 1.2.840.1 [id number] Univers 08:30:00 09:36:05 Visit Izabela 48276.1.1 ity of 3.412.2.7 [place] .3.432719 MD Berry8 [facility] 2021-04-14 2021-04-14 Office BERTA Benton, 1.2.840.1 [id number] Univers 08:30:00 09:36:05 Visit Izabela 97071.1.1 ity of 3.412.2.7 [place] .3.024563 MD Erickson [facility] 2021-04-14 2021-04-14 NPR 1.2.840.1 [id number] Univers 08:00:00 08:30:00 77940.1.1 ity of 3.412.2.7 [place] .3.653170 MD Erickson [facility] 2021-04-14 2021-04-14 NPR EL 1.2.840.1 [id number] Univers 08:00:00 08:30:00 96382.1.1 ity of 3.412.2.7 [place] .3.956098 MD Erickson [facility] 2021-04-14 2021-04-14 Travel 1.2.840.1 1.2.417.458 [id number] Univers 00:00:00 00:00:00 15173.1.1 350.1.13.41 ity of 3.412.2.7 [place].3.698 [place] .3.791049 084.8 MD Erickson [facility] 2021-04-14 2021-04-14 Travel 1.2.840.1 1.2.285.910 [id number] Univers 00:00:00 00:00:00 86674.1.1 350.1.13.41 ity of 3.412.2.7 [place].3.698 [place] .3.843965 084.8 MD Erickson [facility] 2021-04-13 2021-04-13 Telephone Arturo, 1.2.840.1 [id number] Univers 00:00:00 00:00:00 Odalis Aguilar 38708.1.1 ity of 3.412.2.7 [place] .3.527075 MD Erickson [facility] 2021-04-13 2021-04-13 Telephone Arturo, 1.2.840.1 [id number] Univers 00:00:00 00:00:00 Odalis Aguilar 42617.1.1 ity of 3.412.2.7 [place] .3.596844 MD Erickson [facility] 2021-04-06 2021-04-06 Andrea Rojas 1.2.840.1 [id number] Univers 00:00:00 00:00:00 Anna House 54793.1.1 ity of n 3.412.2.7 [place] .3.654892 MD Erickson [facility] 2021-04-06 2021-04-06 Andrea Rojas 1.2.840.1 [id number] Univers 00:00:00 00:00:00 [facility] 52733.1.1 ity of n 3.412.2.7 [place] .3.326952 MD Erickson [facility] 2021-03-26 2021-03-26 Amish Benton, 1.2.840.1 [id number] Univers 00:00:00 00:00:00 Only Izabela 54251.1.1 ity of 3.412.2.7 [place] .3.596461 .8 [facility] Cancer [place] 2021-03-26 2021-03-26 Orders Chetan, 1.2.840.1 [id number] Univers 00:00:00 00:00:00 Only Gurrola 15244.1.1 ity of 3.412.2.7 [place] .3.673710 .8 [facility] 2021-02-10 2021-02-10 ambulatory STLMLC STLMLC [id number] Common 00:00:00 00:00:00 [facility] 2020-12-23 2020-12-23 Outpatient [facility] [id number] [place] 00:00:00 00:00:[address] 2020-12-23 2020-12-23 Telephone [facility] 1.2.840.114 [id number] Univers 00:00:00 00:00:00 MiguelInformantonline 350.1.13.10 it y of [place] 4.2.7.2.686 Facundo as Dillon?Blea [phone] [address] Office [facility] 2020-12-22 2020-12-22 Outpatient STLMLC STLMLC [id number] Common 00:00:00 00:00:00 [facility] 2020-12-21 2020-12-21 Outpatient R [facility] [id number] Univers 08:15:00 08:15:00 [id number] ity [facility] 2020-12-21 2020-12-21 Outpatient R [facility] [id number] Univers 08:15:00 08:15:00 [facility] 2020-12-21 2020-12-21 Telephone [facility] 1.2.840.114 [id number] Univers 00:00:00 00:00:00 MiguelInformantonline 350.1.13.10 it y of [place] 4.2.7.2.686 Facundo as Dillon?Blea [phone] [address] Office [facility] 2020-12-18 2020-12-18 Outpatient R [facility] [id number] Univers 09:30:00 09:30:00 MIGUEL [id number] [facility] 2020-12-18 2020-12-18 Outpatient Johny HAN [facility] [id number] Univers 09:30:00 09:30:00 MIGUEL [facility] 2020-11-18 2020-11-18 Outpatient STLMLC STLMLC [id number] Common 00:00:00 00:00:00 [facility] 2020-11-11 2020-11-11 Outpatient STLMLC STLMLC [id number] Common 00:00:00 00:00:00 [facility] 2020-10-29 2020-10-29 Outpatient STLMLC STLMLC [id number] Common 00:00:00 00:00:00 [facility] 2020-10-13 2020-10-13 Outpatient STLMLC STLMLC [id number] Common 00:00:00 00:00:00 [facility] 2020-10-01 2020-10-01 Outpatient STLMLC STLMLC [id number] Common 00:00:00 00:00:00 [facility] 2020-10-01 2020-10-01 Outpatient STLMLC STLMLC [id number] Common 00:00:00 00:00:00 [facility] 2020-09-03 2020-09-03 Outpatient STLMLC STLMLC [id number] Common 00:00:00 00:00:00 [facility] 2020-09-01 2020-09-01 Outpatient STLMLC STLMLC [id number] Common 00:00:00 00:00:00 [facility] 2020-08-27 2020-08-27 Outpatient STLMLC STLMLC [id number] Common 00:00:00 00:00:00 [facility] 2020-08-25 2020-08-25 Outpatient STLMLC STLMLC [id number] Common 00:00:00 00:00:00 [facility] 2020-08-19 2020-08-19 Outpatient STLMLC STLMLC [id number] Common 00:00:00 00:00:00 [facility] 2020-07-30 2020-07-30 Outpatient STLMLC STLMLC [id number] Common 00:00:00 00:00:00 [facility] 2020-07-29 2020-07-29 Outpatient STLMLC STLMLC [id number] Common 00:00:00 00:00:00 [facility] 2020-07-20 2020-07-20 Outpatient STLMLC STLMLC [id number] Common 00:00:00 00:00:00 [facility] 2020-07-14 2020-07-14 Outpatient STLMLC STLMLC [id number] Common 00:00:00 00:00:00 [facility] 2020-07-13 2020-07-13 Outpatient STLMLC STLMLC [id number] Common 00:00:00 00:00:00 [facility] 2020-07-08 2020-07-08 Outpatient STLMLC STLMLC [id number] Common 00:00:00 00:00:00 [facility] 2020-06-24 2020-06-24 Urgent Provider, [facility] 1.2.255.654 [id number] 08:49:40 09:29:33 [facility] 350.1.13.10 Care [place] 4.2.7.2.686 Professio [phone] nal [address] 2020-06-24 2020-06-24 Outpatient R [facility] [id number] Univers 08:40:00 08:40:00 [id number] [facility] 2020-06-24 2020-06-24 [facility] [id number] Univers 08:40:00 08:40:00 [facility] 2020-06-24 2020-06-24 Telephone Duglas, [facility] 1.2.207.802 [id number] 00:00:00 00:00:00 [facility] 350.1.13.10 [place] 4.2.7.2.686 Professio [phone] nal 044 [address] [facility] 2020-06-16 2020-06-16 Outpatient STLMLC STLMLC [id number] Common 00:00:00 00:00:00 [facility] 2020-06-15 2020-06-15 Outpatient RICKY Huffman [facility] [id number] [facility] 11:30:00 11:30:00 Dolar [id number] [facility] 2020-06-08 2020-06-08 Outpatient STLMLC STLMLC [id number] Common 00:00:00 00:00:00 [facility] 2020-06-04 2020-06-04 Outpatient STLMLC STLMLC [id number] Common 00:00:00 00:00:00 [facility] 2020-06-01 2020-06-01 Outpatient STLMLC STLMLC [id number] Common 00:00:00 00:00:00 [facility] 2020-06-01 2020-06-01 Outpatient STLMLC STLMLC [id number] Common 00:00:00 00:00:00 [facility] 2020-05-31 2020-05-31 Outpatient STLMLC STLMLC [id number] Common 00:00:00 00:00:00 [facility] 2020-05-21 2020-05-21 Outpatient STLMLC STLMLC [id number] Common 00:00:00 00:00:00 [facility] 2020-05-18 2020-05-18 Outpatient STLMLC STLMLC [id number] Common 00:00:00 00:00:00 [facility] 2020-05-11 2020-05-11 Patient Emeterio, MTMB 1.2.840.114 [id number] 00:00:00 00:00:00 Outreach [place] ANGELA 350.1.13.10 [facility] 4.2.7.2.686 JEFFREY [phone] 388 2020-05-11 2020-05-11 Outpatient STLMLC STLMLC [id number] Common 00:00:00 00:00:00 [facility] 2020-04-27 2020-04-27 Outpatient STLMLC STLMLC [id number] Common 00:00:00 00:00:00 [facility] 2020-04-14 2020-04-14 Outpatient STLMLC STLMLC [id number] Common 00:00:00 00:00:00 [facility] 2020-04-07 2020-04-07 Outpatient STLMLC STLMLC [id number] Common 00:00:00 00:00:00 [facility] 2020-04-01 2020-04-01 Outpatient STLMLC STLMLC [id number] Common 00:00:00 00:00:00 [facility] 2020-04-01 2020-04-01 Outpatient STLMLC STLMLC [id number] Common 00:00:00 00:00:00 [facility] 2020-03-31 2020-03-31 Outpatient STLMLC STLMLC [id number] Common 00:00:00 00:00:00 [facility] 2020-03-30 2020-03-30 Outpatient EL SLEH SLEH [id number] [facility]H 00:00:00 00:00:00 2020-03-18 2020-03-18 Outpatient EL SLEH SLEH [id number] SLEH 00:00:00 00:00:00 2020-03-09 2020-03-09 Outpatient EL GABE, SLEH SLEH [id number] [facility] 00:00:00 00:00:00 [facility] 2020-[facility]-27 2020-02-27 Outpatient STLMLC STLMLC [id number] Common 00:00:00 00:00:00 [facility] 2020-02-17 2020-02-17 Outpatient EL SLEH SLEH [id number] SLEH 00:00:00 00:00:00 2020-02-03 2020-02-03 Outpatient EL SLEH SLEH [id number] SLEH 00:00:00 00:00:00 2020-01-21 2020-01-21 Outpatient STLMLC STLMLC [id number] Common 00:00:00 00:00:00 [facility] 2020-01-20 2020-01-20 Outpatient EL SLEH SLEH [id number] SLEH 00:00:00 00:00:00 2019-12-13 2019-12-13 [facility] [id number] [id number] 13:51:31 14:35:10 Visit Miguel Olson 350.1.13.10 [facility] 4.2.7.2.686 [phone] [address] 2019-12-13 2019-12-13 [facility] [id number] Univers 14:00:00 14:00:[address] [place] [address] 2019-12-13 2019-12-13 [facility] [id number] Univers 14:00:00 14:00:00 MIGUEL [facility] 2019-11-28 2019-11-28 Outpatient STLMLC STLMLC [id number] Common 00:00:00 00:00:00 [facility] 2019-11-15 2019-11-15 Outpatient EL SLEH SLEH [id number] SLEH 00:00:00 00:00:00 2019-11-06 2019-11-06 Out[facility] [id number] Common 11:10:00 11:10:00 [facility] 2019-11-05 2019-11-05 Outpatient [facility] [id number] Common 11:00:00 11:00:00 [facility] 2019-10-21 2019-10-21 Outpatient [facility] [id number] Common 09:00:00 09:00:00 [facility] 2019-10-03 2019-10-03 Outpatient EL SLEH SLEH [id number] SLEH 00:00:00 00:00:00 2019-10-03 2019-10-03 Outpatient EL [facility]H SLEH [id number] [facility]H 00:00:00 00:00:00 2019-10-02 2019-10-02 Outpatient R [facility] [id number] Univers 09:45:00 09:45:00 [id number] [facility] 2019-10-02 2019-10-02 Outpatient MARY JANE TOBIN [facility] [id number] [facility] 09:45:00 09:45:00 [facility] 2019-09-17 2019-09-17 Office HELDER Elam 1.2.840.114 [id number] [facility] 09:10:27 17:17:16 Visit Isamar Ali AMBULATOR 350.1.13.21 College Y 0.2.7.2.[phone] [facility] 325 e 2019-09-17 2019-09-17 Office HELDER Elam 1.2.840.114 [id number] 09:10:27 17:17:16 Visit Isamar Ali AMBULATOR 350.1.13.21 Y 0.2.7.2.686 [id number] 325 2019-08-20 2019-08-20 Outpatient BERTA ROJAS AIDANOtoniel [facility] [id number] SLE 00:00:00 00:00:00 MYRON 2019-08-01 2019-08-01 Outpatient ADDY PAULA [facility] [id number] SLSL 00:00:00 00:00:00 MYRON 2019-07-22 2019-07-22 Outpatient ELENA PAULA [facility] [id number] SLE 00:00:00 00:00:00 MYRON Results Test Description Test Time Test Comments Results Result Comments Source Pathology Outside Interpretation 2021-04-07 23:06:02 Test Item Value Reference Range Interpretation Comme nts Materials w5qmeYDwIFQkdLXoZoBdGRBhXVOhk4ppVMJfiRWcTsJsZqOjIlSuTyeeyECpAHMyYxVzr6gdj418cWRp b4cdFHDdYvA1fWCgYVKhqGKrK039JHChFTteq4hkc9QmPVPptSBrg4U4UUFCdlmikYj7mNnmC27og1F0 MhhvY7etTNNgPSBqW3OzJF0yTGHoDml0JJM8ZZA4YKBuN Received RSdD1ZpEM9wVRTgcQApULt2l3qyuFljVGBxAUL8y3weLKnaalXzOM1bme0fmVf7w3blcbNkZNPnBTSis QUBUGJcB2QrlVosKz9tqKe8eOpqZglmVTL0Qut2EF5nyj83cqh2hPaqXKYqehxjGhT3VLzvVBMcaxikB Wj2JKjiTTTlqFtsHHinLVQeswzbVWzlNBJisKX2HVUudI (test code LdU6ZrDRDrNTgqTBGstew7GjZkCq3hmUPsxVtpAOxvu8fbq2svzPIxSgi7HXCpEvAaQwhoGLkjy3Scl6 zcFMAiam8zQPD7gYZmaSdab0C0nTMeKBJyxNCgtbVgLHDbtv71qNIlgTPsjSMrzz6rurYivXDnwQYzMC I4zSCkiaHiHDBppEKqGVIzXG5atYFmZRTedO3iyqupIBW = 9973) lKtNbkoxjSTNjmXjlpmHsVt9kxAoyGAQ4LCbeP1hsqY7bKrN7JJbxH5xpeJ5dHEu9BHmstDI4JMPkkL9 yFC2veriss1exHkVfSR7tdnpnd5wkGbOvKW3vqtd7a2ghLRQ5NZcdIUGuCmB9hqM5HWCyrCLlCAIqoBb hIGrlu305KPF8EcOlLDDkf6OeI9NtkTiuL73ivOtoL71c ERAjgAozqH0voHaulH7lGhSiOoYhTNo6sn30CQj9fpbodTfpBWi0wnLaKDIbBIW4BEYsxEMjODDcE6r8 prMwSMUbWQQ2OXNpzUXsSGAyY5r4bwGtYDC3QJh9woZyVOXtpNHykWYaMQTpRkDbcIHeMISyUnQzNNIy zGCwrXCciASvoK5ynApgSNJmkSWsyB6bATG0YAZthdybP zXxzABwJYFovOAnhc40ETKtpaFtbDFygBmhbRGcIZX6UOYlGGZfPHTyVJP9OZDeEpXlqsCmTMtnmDUyM FLaENTbTEAgGPDtBCX9TFKeIiTuulJcXDfoeDNhVOUgOQVbXMEsYSCjWFZ6CXThSlMbtgZnFUkjqDVbG XDuXAYlOONgQUAfELI1HGCbXjSnotLyXBdsyKFsGAPoES shiCFpNSN4T7ahnCQzTSLbNWiqjFIsAIQbI5czkXFdPHuuPPSiuEDcXjavFPDfkDZvOsQyQ3hnCGMqBy UiD8EumKc2CUBkJNRdbaKuvDPzmXzeoUBdQJO2XPDcKCNfNICgHLW1PAZaVqDsajLrXEhpaSVpUIHmBZ HlICRmEWQyKDH2VCPnMpAeisBaQXlxnUCwHQXiOZImLDV jNARyMRL6PMXkMuHeddBoIWyhhSRqFDVpECHlJYLhYYGtBDV5BRIsWbWvnvKnBXgpyPHlXWDfVXkhsJI zBUI4M6otnBUdQKGvRHteyBFqPJPeQ1hobYIjLEjmXXBluMOeAftnNBRroXHhLnSqP8bdZYNfGuKpP6Z vpFk1JlKlXGRdkyYjbCIckKedpIGdJCN2RBUoXRJzEOKs RRW3ULVeRgKancWlFEajcZNvTMWtTSLpRUZyZTEpUWN6ZETzSuDksbOdKMmhnXKrEHEvZSOfYYCmIZPm FOT9YHZqUyUgexYfEGndrOYsBDEvPFTmUVCpWSUmAHE9VQDtNkKzsbMkRGgwcZFaYENyFRxpkFDgGFE9 Z5xugDWuMJNyOEypzLFkUBCeE5mjsBXlZMlyVFCapTNeL fpjLGXifENmMpUhG0oeVPDvQaPtY9FbvPn7KeDyUPNjfdEgoQ85Dbxrl9YeZRGePVC1VXjeNGqqsBctz BVbyobwIIpyhaXaNUlygsiqAUSfQRobE6iqDqCmJMNmvEmwYSmwj3VdSKThGPUaXigyylAgHEAsPLMrO PHedX6tUrpsN8VyuL0vLToaJajrF9eiBHSys8MryC2wZJ fmyWCffxjbJTuvggOlWFnfqbhqRDKdTAopD2shUmHkYAXtnMnfZWrjj8HaPNQrLLDeXwiwypDdIQr9td XwDALxtDmurWXiMEphljRxrYnsk2BmnaSxnGmdSNQnAJt3maWepnwgjSn8nLGjwGqmCELjxLoreE5iJm EhXxUtBFvttVUakoarSUsslpQvMYzoqkzjDQCfQDzhE5e tEwInYQVybZoqRWots0AxXFIbTFImQqhbhlMqSGGfK01yyCAwjOSyKUYhKInkHPFvMGRqDaNgwGZvYiD vRxKgiMzpgIskTHmeRiLkBUKuRDprS2iyPvNlQ7KmPPVjSeWotGKgS1obX3JpkEqnVATrTTagbUEdKNI ezEUhMNR2jRCjnoSgwFOxzTNrBICjBNzhNEJ1aPAoemcm cPWxsfvlDRgcoqM2VTMgNEwgDWYzGICmRkKnqTDkHgOvZrGcuMsnvSjzASqxJmBmLXLdCMqpR4qoNgVv O7XdUJQyBbIzAmEWFWGqqQCyZAkqyFEybmvjDEfwjxPxVXbfkmtqKFXwCQaeU8jpSuGvHYGttZnuCGde d3HxRIBsUFZrVeojriDgUKu3quNhUMFpaMqxaO03Awtyh x92YABbo1jrKFYtA1MstUBlAUFaxJPgCRvjDIdewKGyBNFrXjyfYJZgaDSnDBSmMOcieCYoFWIbGrIqN QBogRZbRRWsGOKxsZUkUQG1K5k9liBbGVOfKKw5pfElECYnBbCpyQDuXRG9HBg2DdlbfjY9jJIkX0r6C njcriXnUKxthKElwf80FAYqbkTwsPXaaJjwsCBmOUA6WB GtWXNzODCkWBJ1ULRqEuFixnLdJMusnGWmABTnJDLiQXAgGTSwAYR7MNMzDlVileKdAPpstPGqVFCrTO UlZZPiQBCbIPD2QKDkWeUbvmSgXDhlgHGiUTExGOZmGMTqKLCyRFW2JPMcLnNawaZqPCtjeBMsPHHxKO fkfJTiCRW2V3vnwKNaHJUlEMskvZChLDVxU6pzzYKyOBt rVGNycFKgLagyDIEkjMClOxLdF2yoMNTdSkIlP4LflZc0QMZsMPHiflRkcUCukDytfTIiWYH7JUOvVQV qDVIsKSP2DGOdPmCakoJcULxmmZTlCVDgXAMiJVYtTCBsKMC9WLQwNlNljsWlJAfvtYGmYFKfAPXwIVF uPJWbSVD6PEMpNxBdtqAwWAuwyIIcFBStUKVoVNPzSXIq FHD7QPJbYlUohqChJUfptEKxHKEkMTuxpONcBPA8D5ibnKJhENZjKSlzdUFbGTQnB9pywIAuZQgiDVAk sUUpWjsnQBGsfGIiZyQgX9ghJHEbXfUnL1OacSi9EnQwKLEdczQwuLOwuQaeiESiAOK8WMUiSQDvICXa QMH7PGDiTqJqynUeGZjgpNSaFOIiGEPgQFXuNAPiCQS9F AIkIxGuxtEwCGuomYFrOMTbMDZuXNJlMCTtZRG8FWGtGyXzdyNoBNuenIGdOYTmTIBpFFIwWORlQOF6K RSkRdDbbyLdAKmooGCgZLJcXYiiqGJmGMX6D8wtqGHcVQMaUEbxsKBaSCUhZ4sfeVEvVZnzDLCqgASjJ ufxHSRchOOhQfQxO1cqQPIiAwFkG2ZsmXv3MjMgDHGdqv NrxD11Dyuyk8YkTUDzUFJ6YAhxPDbsiNqbySIcpqexXLciadS2ECVfCAppZEAzQGPqKuFzwZCoOmCrRm OelTixzEpdEJzcDlPzOCUgTMxwG2zwSfVuN2QqMNJkWcNlYJ9uNREoFC16FGTgUYUoSCZCANQkQUXON4 SZOkepVFINY2IdzRAsJZMgJArIZxFcXMW5BcbhEuQQZnu dYSQEGR3KG4JyXWKcAEGHUWSeTGmeMUMcJJScClKraAEjDhHeDbMaiZrruZbtPSykViIcUVJxLLdsP0t zBtQvY6RiLYWoWwBmoLMoV5tnP1WopHgnJNIdAQtjbKPdFGUyuDVwHLC1lKYdutLnoWcmlHvonD0qWhA hYiMrEKspcNXdcwvvWPmvwyEkYFqdwigrDXGyDZjsW9mw IbGuMMBrqEsyWAaxy5OuJHOwVDLkCnbtbgTsDGRfUiJ0NnQvLtOpkCOuJHKjHeD6LkEpIfVtyZifiG2d AkKcFvCsFIroTC5cKMPwQ9jaiWWmTLWpWVDqO7caQoVgkN6xhEqfLVhbQwLyRhYrALkoxENxrDtkRRtk PJLdidMnrO97Szpkl6QiLMEdUAD3UQovCBzalIgxuAUea imgZSgismY6WIQrEGenFKQzZSLcKaPvsWTkPjCsPbOddVobyEypQYpwIaXqBZTvJYtiK8pkAyTqT3ZdB DKdJaDhGr2tEgLbIxOqrWOqSPDjUK3fUORuDLAsCTdiKPCtUTWtMfShwOCbWmYqQzWjqKqomDwoXNbkQ nUwUPFrTQwjN9ndFiRsM4YqKZZrRpQgfQCqB6lkY3PkrN bnmkQabRwlv2gpjDUoWKgjj2DfewZsrXbuGZUtGVUfZXGyTJrfXLMfNTZiCgAqoFpxoL5hDeJaDrHnFT jeDZ7zVXZaU8bimGPgLPNxMGIjR1smFtLbtU5saQlzQPhvobZfRXOiih7= Diagnosis f5zfuBNhZKGywQS7VvBdLPBzr9otu5ZkcLCroOEoHLbwuZAlwvTebv06dJS5zY54IV8bIAPiNlJ8RFOp arT4Ldi0YLCfTTWdbYReE507z5yzs7dynyLlwXA7ZYQmNDGdL4RgYZ7gBUGwmOZlT32ocPStTZM6UVQm XZNwwJYuCMFvPJB0BNJxwNFtA7nyWBPwQN8axzphDBfvU (test code ZktDUHdmEN5BTZtlRWlT6WfDDFvVQluJEIwqlo1NkLwFh0kjWZllAdtZOvqZMXoNZLvRVyhZRBnAyWxT 5CvRU70hIWtZEHzYKaYZwJgEOY9UNirMvULElzrKAQDIL7VF5LvOJIcILGGJLJwf1dzUDU4HQUij36hY MWzYTWbQzRjFYc3RJZgwwbmWwTvoSIfLGqrVsDvMWmilq = 36) vnTZFGQfPFt1ifUNIakYnsyFVjqgNrS2RzmPVcvGSbd4QgUCrdy3unxbYgEMH5RLgzTZaYRDQpKxvfRG KutXArVVx9cCIzrVhpj1ZtZxIkF2BtashhFMnlctF9g2QqlbZ0eCMqMDHlgeW6PUxnIXo5DL1psW0oWV JpeeHrCM74WYG7IJWsb4Q7IVBuEFmtmi5wRONbiawpJDA pfCnqHKdqyeMcyFLfXFSkUPJzmE8cOXUcT5k9OXQug5llyOZmMUHaudOdlFQwc2TuIKLnERFobOQ6LHA wIKzeNCCQQvSGOEKiGmarMAWimOLcHSRfZwMUSFWYYN6XKxCPHSlPDBKYIiKITm9UKZIWEdPBEDVMXYm ENFgrWLKVWZpFKAWZULEJCkJJV73mGN3CFWRGLW1QBB8B DQRAMiMHKOPBBUWGGbROFwqAVZ2AGAeEPLskYOWnyWn3VoBzUgh5MtWuxKxzVnWmJWQFJ35KFJMMEC4V IUeEADrmMYtHREXQPBZTBBpVUPQCFNqMRZIsE6NWZKKZY9pXAWUHEHQGFUBCIH0MLMUqNO7CHFEGIDBO EW4BRJSMWtNCSZ1AVBSCFREEX3GLWWASJJjYNu7ilHTmU AjuPTsqpTVnyUfgSJawVCEydAJzHVErUGOHvDHlfBSsFWvWBYHaOOquICBzPHBqV3EcKSMtJzqLQ0nTC RQsDUEBIlpcM34gaTXupPKlIS2zWAAwGpD9EyYbEaGzVvplTVEqW4DeZGGhptvhqLsgGEowoP10WnSkX x2vO2dhewrwpzsqfTNvqdUogWNlAVVfkdAitUVgXJ6mJL EeeTN9PPJqDElwNZQRYeREQQBuKqxxWAIgpRakRXOpPLlkobO9NSGuI0KCAI6DWBYpC8UHFXCPKVAIVT 0XUOKeXLRFGOwRYQVMHMxIIMDXQSPsTSuRORcmJm2SELqyNNSFGUtPQRECPZMPTyYNS42jVUDWBYCSZz ZeQGJjDBwEQ4VIBRZDS3OOXscrOJMrZJI7mNphJPdtS4K xcHVbOMx2YL5cZGIzDGIoXUOjNXEqGR8zHSBiQDDdyZGbaM3tsh8bHZ38CFCcn80uxIYhfm63ORTwnCP uFBOmfOusfcKoACSwz5O7LkRbWHRbpydbGMQfjEr3HtNusAgeTkCtCNDpOEFjgL8jBBuhx3FlWOJ1HAA rdE7qGTVmOJRgNMbfkCEKElH7JQ6zSKptlCDkMIRjUmIF ALPrlgDkMDntRTxycnG2r5OjhesnwR1feJQnNMHiKYHsXTUyjuCqCDYogIqck7RxXQMzF3SmVxbkMQV1 Comment k0lhzLVgWVMidIW5JrWuBIRgv2vop5KdyTEymHUbWAbwlTBjxhFtmc62bVY3rU59OP9jBLWfBuL3DFFi wtT7Hyx1KKGtEEPrwAObA925i1zcu8ofwlNkqOI9gUsrOHUsgzqzIeE3ADlbWERucxmqCYj2MLljLHGj dRL4YOXqxTBrP4NpOKUoTJ6bnja8DIO9GNwxERNtWvY0J (test code PJqmKNjGVHnrYllBKqwk597LXK6KxBtTPPfopEnzMzmvC7cWgDpYUMWmBveGIPyt5Bhe8RyFEC6fRRaU RSzTY9qQCYts0Z1i6SwMNFhvZQ0gFJyTZIksBL9r0HenWctzN7ulFGySZL4hFN4QZDmdyVrbgUfL1KmC CBccGFyfQ== = 9835) [employer] p7maiGTjCKLanJY1OwXlPONth1qia3QixYIguTRoEKbkpMAxruUfey09qJZ8oU26GY0lJACvLrK2OPBi etZ7Ejy0WWJlQAOrzUZcB827g5kau1uobfUdhZB8iCmoPTFndqfyGoD5DUmlPZMdnosiUZe4KWbpQDNk iDX8IWFxgCXdD0GzEEBmLF2wlab0XWH2JCpsIOZrMuW3L (s) (test KYjfCRwRSBzwTvyDJlgf075NIE5OoTmHTWuovNonHrpxK1aGyKqIJDBM7UqCPIFWBsaTnbBVMATQhafF EkgXHBhcn0= code = 9863) Disclaimer y7znvNCjAGZybUFkFzGqMFBoRUXxf7aaWPTluMKtPsCqRyTbAuWnVvudzULdKKJmUwHkr3usk429nYGj n8ptALDhJlU9lENkMODheOEoO994CXUrECnwr3cuu0BcQGDpjTExi7V8OJYPbciovHj7zBgnI18dk1Y3 AeahF5wbMNAuFPXoG6KoLH7cHLOgZkc7JCQ4YPL4FWNwR (test code DYzX3ItLM0wANQxmXBiJFx3s4fdcCghKTAwBYZ2r0pvSIqdhbSsKR0ato2avZn2u6rqguUzDOCfCNKgq FSVJCRnJ9KhnStbCo9gkAz4xKwfGhpqDFW6Jjo1KP3zyb43wxj2xWneFNAdpvdfOuG4BOpyFRQxzfdlH Wb9IBtqUPMzqSP1BAUgmHSrK1VwPVWzTT6iofj0LRA3LT = 9844) zeQMOtOxC4KHYqpUUjWJJoiSccHWxvd671FDZ6XsLgIT3eZ3Ydw0X2bL8clQMlVTCagFKvNuNeFKAewm 1rtKTtWYtdv9XjPMJ2llE9mBZrlCRwLJYvAC20Cwtdk6VlKrnyOPS6UFErceOtf5Uhu0fkHwGuncLpL6 vuR2RkRTOjOWVjHWMqTxAvqjRlf8Gox0MktNZceOe6g8a jAWXkCRGzvAcns8egEUL9CBDgU3T9rIOfl2zjQXsfLHIqlPL4zpK3PYDbcNBeW8MejE0rNHQkZR7buwo 3y2tgHGI0VTooOIAsLdT7vnO7YXKswCJmXWAfqRviKQior163BHK4CxNhJAHss0BpL4FghNbpI73bwNf pE30bVWBtaFnlkW2kxFdejD3rNnLtQySeLDahsIfarQKv nchbYPbszuI3FYqimnojFAXfWJzhW5fcMqIzJZKerBaaDPbht7TrRZVcQKAsHulejhQ6AKLDf25iHKHa n9UtHIVyrR3zpAFnYEpbynLbhDN5WBabpaVdEuJgdxGsKVTyaX3oVUSsBS0sQGHcxpZelg0tawEeOKRg SETiY3VthookkEkvneKiXAHybq9ijtPeNZM6SMTNVN7GM CCpCLQtu14gRTTodCuyeO8qtIVfmpOdNUHhp1QpfC3nrQRXUJYkU6uhAE8hLRaap8WpyTSbdXXtfNR2V QYnj5BnDoJxkxBozCOaqZFaB9YpnSfwT3aoJFOnEOXeowPmwFNev6JqIVZxlLZ8rSKdFM9BZuJYi70wX ZFyEIEClgZgCSWviMetdRX7taK3dN1bOgZJIzGgbTRxjZ IcHpmwYKBgn860ut9cprM7EOXnRVOhvwece6HmMDPwQKDiuF91SOQdZTHfpy9enlsxrRYnncCfB3Ffjg k4mR1aPLIiOFzmZCClSJEgTmBjbJAgNmPxWmBznDtdwIzlPNvlSsGqJUBjAPskW0bcCoDbXyTsPwfbOK J9 [facility] Interpretation 2021-04-07 23:06:02 Test Item Value Reference Range Interpretation Comments Materials Received (test s4vlqTHrUXOpoKLkWmHh code = 9973) PBKsKNAhl3kiSKLnaRSx ZzEwMzNcZnRuYmpcdWMx JUAsHnEnc0ofe295gUYu v5dpUILmKjM9lBQdDHXm iHRxJ672BQPrWBiov2vz o1OpLVFvyHVes1U2GBYQ bhaptOk6kGbpL65ft7L3 NxisF5sbZGQuRMRvO7Kl DB5zEHUvVfm0ALX6UCV7 JVGtPJCvO1EwJB9wFWMf pEHvTBs3t5kxfWymVIAi KYJ3b0ueMOavemGtZP7d xp6jeFx3k8tjryDoGFQq CIDubBDOZEUvO0IcpQdp Nb1moOz5uUjvVrnoQUX3 Fxy5JY5bqu99kyn9dLvx CUBpkkoqNtC9MEhuTHQm iiwiDVa8HAeuWZQevCyw MFxtYXJncjcyMFxtYXJn oZP9ERFauPRwM5AuPCVl FJvoDQFakfi2WoIlSm0a qYUqeGwqNUmtr5zaf5ct oDKfGpi5WYOyZiVdBnev TGipa6Flz3evKQTkqh1i NBY7bDAudPkst1F6cOJx MKXfmNJzqbTmYBWber00 xKFiySPpbKVumi7ztnVd vLRodUEcCFZ7kVPpwcTi SZQveRJfUJUiGQ5cuFXo YDRjkX3xfifpOLObPiWr gcwxPBKelHafgdKbTq8a cHdgALT6ZGdaI0mseH3k CaM5QVawR2osaX3oIXw8 HVfllQM1GPCosJ4uAY7g mhhho4ltNmMmIJ4vyeav u2yhAbEmCL2vrwr4l8kr ZHS1KPgcIFOaRhV0bwR5 NDBcaGVhZGVyeTcyMFxm c158XQY6JpAbSWUns9Ew S7GdzUrvS28zdWygH29k IWXenElkyJ7soDdgcZ2y CeQxDpLyGBu1mb30IBv2 creswRpuYDp7kyJoABDu GSF4HCLbdVGtXCPoW4s4 zdWuLPWwYUF9NCGftGCk MIBmE8g8jcEkPFN4AXg5 cnBhZGRmdDNcdHJwYWRk YjBcdHJwYWRkZmIzXHRy uNNhpYTdkJBibU9ylEcn GDTojDLboT7zWNA5HFUh cmgzMjBcdHJoZHJcbHRy eg84EVRqsgWhgSAbjCep iPNiFUL6UVZcNZQeLOSm PFH3XAOxPbXdcrWrBRua bGJyZHJiXGJyZHJzXGJy PZZ8IJIcVfCqqeCrFBxx bGJyZHJsXGJyZHJzXGJy SPX9VYFfOvRahpUkRDpv bGJyZHJyXGJyZHJzXGJy YZF2WLAaAxPzhhBqIHly bHBhZHQxMFxjbHBhZGZ0 W5sewLWhUBAgTWvwtCXi YEIyT4akzALoAAbrRKCw cGFkZmwzXGNscGFkYjBc M7knQPIaAdOzX7XucId4 MDAwXGNsdmVydGFsdFxj xIHoXQK1CMWxLSRtVFEj IQN9XHPfIgFnnuJaGMgv bGJyZHJiXGJyZHJzXGJy CLT3STZcOzIvngMtZUwy bGJyZHJsXGJyZHJzXGJy CMA4EKSnKqLgcxUuCWbi bGJyZHJyXGJyZHJzXGJy GTC0MLVtCbBolbVzJUca bHBhZHQxMFxjbHBhZGZ0 B7xnzVGoGKKnNTltsDFh BLLfH4hahGOvTRuzQOWr cGFkZmwzXGNscGFkYjBc Q8uaOAVfJjDkX6DioPf9 NjAwXGNsdmVydGFsdFxj zRSbTEC7HYFeGRUpWFSs OKN6JELcJlNztzSaLWuw bGJyZHJiXGJyZHJzXGJy VMV5BISzEaIbgjWtGJcp bGJyZHJsXGJyZHJzXGJy WIJ4SUAaMzDudrCsFGtc bGJyZHJyXGJyZHJzXGJy ESD3KLErAcJcydWbWGmv bHBhZHQxMFxjbHBhZGZ0 T1ozpZPeUZSoIDuxsHQl TEPnP2qhnPVaQQvrZJWp cGFkZmwzXGNscGFkYjBc T0vzKMPzCgArL7NflAj3 WkYdHVKczyBztH88Gaij m0OxPIRhQEM2HDpjHPci bFxwbGFpblxmMVxmczIw FFvufmevKYNgGTfdY0av XjBmLUBjqNogYLjtx4Zk XGYxXGNmMlxmczIwXGIg BOYyHAJapD5lTemuV6Tj bD5nASscJgfaI2kiORLw y3BjvL8hAKsneQNlqjlp MVxmczIwXGxhbmcxMDMz OAgtC2ptTvIjKDNmdBql NXero6VdCQQpSXTyXngo oeRgCNw4evXpHAFneUaj iPAfHLnhmbZnxLccl0Li usUgxIqgWAGhBBu8ptHi jeiwxYd5cFJuzXjoZIKm nWgvuA2oQlGoFjMxBFdt bGFpblxmMVxmczIwXGxh cxnhIHHrDBvcJ0hgPxTt EVTnmPumDIcef6OeTJEx KHJtLmbqoxBtEMSnB69b bGVjdGVkXHBsYWluXGYx XGZzMjBcbGFuZzEwMzNc aGljaFxmMVxkYmNoXGYx JIpyX9vbNlOyX7UgOGDi DvGruJViY2rbF4IfoCpz YXJkXGludGJsXHNzcGFy OLE4gRUuxmNjsPOqmKQw VNWwPZinACW0qKJuvpji jNUqfjukCIcjroT3FPAc YWluXGYxXGZzMjBcbGFu ZzEwMzNcaGljaFxmMVxk QsGiAYVpWAzwF1cmZlAd P5GuIDUtHoGqJrCCFLXp aXZlZFxwbGFpblxmMVxm czIwXGxhbmcxMDMzXGhp L3cqXdAqZRIudRfvDQhf y7SoKGCnROFyFujmibSs IYs3ksCsODCtnOfxwM29 Gvlvra11VIXrl5agBUZg Q0EelLNeBDKmkFBuHOlu MDhcdHJwYWRkZmwzXHRy cGFkZHIxMDhcdHJwYWRk ZnIzXHRycGFkZHQwXHRy pSAhDIC7B9j0epSvEVCk OFg0jjIfNYWnAeYacVPm OFZ6XKo2UvznnsG7pHZi V9t5WczrtdUjTGffqEKc zw05YKSipeVntKTsbHtn tDJmHLS0PIHaNZNvBWEk DCJ9QDMwPtRlslEzUKox bGJyZHJiXGJyZHJzXGJy KJN7KQGnZwFvebUpUIgr bGJyZHJsXGJyZHJzXGJy MKA6HOImZhEgwbBwCYrl bGJyZHJyXGJyZHJzXGJy ZCO8PRQmFiAkcbBmETek bHBhZHQxMFxjbHBhZGZ0 E6uqxXSxDGGuNPmchEIa SEWxD2uurETrSHugAVUp cGFkZmwzXGNscGFkYjBc F2zyAPAgHxWuS4XvwXb3 MDAwXGNsdmVydGFsdFxj yXIkGFG3HGHkLEUfAMOy WGT6INFpRoDxcfPmVQlz bGJyZHJiXGJyZHJzXGJy EKP7VMPbTsMqvoNeRUvr bGJyZHJsXGJyZHJzXGJy EXK8LDTgFdUkmiBeXIgg bGJyZHJyXGJyZHJzXGJy KNI1XARlVhEazjEpMSxg bHBhZHQxMFxjbHBhZGZ0 I6ffoHYiXVWqYDusgVXp JZHaK4gwwOLpENivPHSk cGFkZmwzXGNscGFkYjBc C7mbJSNaHePzJ1UwmAw6 NjAwXGNsdmVydGFsdFxj zWHuJNZ9NWZyKIMsAMHr LHI6HYUpOgPdmwDeRGvh bGJyZHJiXGJyZHJzXGJy XIW7IQBnGeShguJoPMyg bGJyZHJsXGJyZHJzXGJy WGD4TOBdXbMglhGlKWxb bGJyZHJyXGJyZHJzXGJy EAH6AOJeZiKowqHlZYiu bHBhZHQxMFxjbHBhZGZ0 Z8gegZKeHDXuQEsalYGe CFIxM6kzdHAjROpgHJMy cGFkZmwzXGNscGFkYjBc M3bdKTPlUiLiS2IjsLe5 GqPmZAKteaFvjK82Nbdu j9FvGJSmEYD9IDqpWFop bFxwbGFpblxmMFxmczI0 XHBsYWluXGYxXGZzMjBc bGFuZzEwMzNcaGljaFxm IZcgDgTlBOIiPIrzR0yv RfZoQ6ZaCNTrLsLhIL7w TSAqBG94TJTvUKRbAQAZ PRJaMQXOH2NYJpjdJDUO Q8VsuGMxZYPqMHjYJkHj QLG7LjmdRyWXTiraHYXJ FT1IN7EwYDLbFBQLYTRs YWluXGYxXGZzMjBcbGFu ZzEwMzNcaGljaFxmMVxk OsKkFDTxFZzkK1kbWpHz S0ToXHSxPqKseZEsG7pe H9LqoOxoYTMeMLnncOFq DCDkdHUhUNW8tVMptoYj bGrzxNrdsT0oVaDkLlUq NFxwbGFpblxmMVxmczIw BJosmftlLGTmCOjkT0pr SbNcCBLwzRtjGMjvp6Bz XGYxXGNmMlxmczIwIDEy CbL9FxYgTiWstWZsBVJi RrT9VfPiFyJjtSxcsU6d YeKfBbDrRXemWJ4uRJTe W6gmqXIzWRIgFPGzZ7nw ItJalJ1rqIapCHpvBnRw ZnMyMFxsdHJjaFxjZWxs KVEpepLnxN07Belkq8Zi LDYgEQQ4BFpbPDoueUir iAKtfowpHXmpriQ4JTXl YWluXGYxXGZzMjBcbGFu ZzEwMzNcaGljaFxmMVxk PdGtQTZzIOlwK6rfEfJc S3PfRWBpDdLrDp9kEbCa GeRpmYElUJDsZK0cJRCc XHBsYWluXGYxXGZzMjBc bGFuZzEwMzNcaGljaFxm CXglFmVyHDKmTKpgB1mq AuWfU2JvZNJzJlOxpFId G0yfN6EjnZbxluDotIod c4kkoIHzZOvtz7NmnkHt dXgwXHMwXHFsXHBsYWlu ISPkIURoNyUrpIbtzW8j VdDaFdQaZEfpVO8rVTXz D9yopTIwLTRyYUMjM1gr HwZwyT1zzKieNYxvloDf XHBhcn0= Diagnosis (test code = p4bjgUUeJLBbfON7EbIs 34) SXLcp0juy0LtqPSmzQLq RNkurQEdilPcsk63aWC4 eZ60WR2hFVSeCnD8OTMf eqR0Mjr1WXPbBQAorXRb D397t2ksm6uxutCfaRT3 FGIdJDMvV4VqPI7zWULf uDVuD77xzDAiXOZ3JHKo MIOrtVVeVTHbCWU3VCGq vDZaX9ifEKJkOT9rknsd MDmhMDedXMQflJL4ECSh tLNwK6EcFVPxPCbdXSKy rxa8GdHcFh9juUYiiSrk MFxwYXJkXHBsYWluXGZz ZtSaZ4XiFE82vJDfBOPi PQqXWvPfKAS8TZhlSiGD YhmyVWKYCM0WE6YqSNYr LYWUMLHzf5slNUK8FYLn t01nCBAhVIIuLxXmRAj4 XHBhclxjZjBccGFyXGxp NzIwXGxpbjcyMCBBLiBT l7glNKRrjLwnsXBqbpHe F9WrdIQqmJPfe3VpIYht f8horjMuXJL3JDybCQiD LTEpOlxwYXJcdGFiIEh5 eYVulJubc1TmFmUyK4Fi kkxzEFojrwT4m9YkgiQ1 bXEcZZGgheP4EHqdCVy3 XW9pmJ5dINVqckRyJS84 AFN5RXYcb4G0ABWiKFkm ee0lFLNtzxomPPWmeBbb XGxpbjBcdGFiIEIuIFNr uN4yHXHfX7m2QMMft4zh iCHnNIZgofEwgCEpw1Yq DGWaTHYaeHH0XLObGCts SCZFOiBCLTEpOlxwYXJc jGKsMBDmVwYPNDZWDK4F PtZTLLzZCTNSYrHIQn4I QSBJTiBTSVRVIFdJVEgg QURORVhBTCBFWFRFTlNJ Y23uTY6CEMFRVD9NKC4N WVRJQyBGRUFUVVJFUyBB VuhAYO7ZPMeGJQyyBIFq yBw3KtVaAex6AcMfvQnk SwRvSMBVO74YTJBBEU4X IFdJVEggSFlQRVJQTEFT FAbZGEXQRUdFPBAeD1CN MHLWC6pRARORRLNBGNVN BX1PQRJhCC5DLQAXAIDS IX1OXHGDZlXDSM0IFKCY CYOBT8SLIHTZGAgSCp0i cGFyXGxpMFxmaTBcbGlu MFxwYXJccGFyXGNmMSBP dXRzaWRlIChIUDIxLTgx KOQwNDUhD6QqRQEsSchG R7jAEKAbOUDJAlvdV93p hRZaiNLjFN4oTLMlPbN6 TsOoGbPvEmmfYAQaP4Vd TOZrvzdalFsxITxhpP85 FnNvJk6bR9bpikicacwm aHQgcmFkaWFsIGRvcnNh bFJwSG1nQIAzoJT7UDEm MXggSCZFOiBDLTEpOlxw YXJcbGkxNDQwXGxpbjE0 GIIfP2BQOK7SFAOyC7FW WIWLWHBFWK7JYSLoAXLC IExFQVNUIElOIFNJVFUs BGzAHYdxRm3ISWfaHMSR QYtFOLIDDKLUMwSOQ42j IFBSRVNFTlQgQVQgVElT U0LWGUNDO9PMVennSXZx WHO4dJccATvuH4EerQUa TQz3TL3jAEPqZOXuKTOn NERtRE0eOZEdXJBzaGIh mC1fck2iJY08QIOwu94l cUOeri11OWWccMRwZHXn iBymmmHdRFIvp1B3PpAp IPPonsmwKIQtjAk0FcOn cBxzPaJvTXXxUMDudP0x TZdth5ZqPXG0XKKxgX7e IHNoYXZlICgxeCBIJkU6 OW7vNGtmfPCgYBXyKhOC ZWJvcnJoZWljIGtlcmF0 q2GmqwzsdB2svVUlXRZb IHByZXNlbnQgYXQgdGlz z9QvOUFvT0OwOfkmXRH4 Comment (test code = z1nwhZNhZRUbrSR0YmRu 9866) HFSvy5zgk5JjzZVgoCLz XFfcwIJfrbGbve40bLN2 yW58NA9iKXAyZpR3OQGl grD6Toe4HJAoIVLkkAWx A191y7xpf4tszpNtkOY8 bAmxRLRudnvrQyD2WAzt BPVxwlggZHk4MJgvTZYp aPP8OKLzjMJiD7GgSIZg OE4kgvp0RLU1AMxyHVOf RoV7UFWhvERqLUKtjZcg VEczs065RNH5QcUeVMFi owQfmZwfeC3bGdNdQHZJ fGyxTQZhs5Zzk3VzDNI6 tAJzNTBnYV0aGGXdd2Q3 o0RlXDQhhLA6iCCqNKHa qGR8s8TvqKgvpS6rvCIa XLW4kCI5WADtomFfuwVw P5AkGKJzjWDkhQ== [employer](s) (test code x5dicIXiBNKcxPT4NcEm = 9842) XVPvd8cml2PdrGLzeTBq DEvqhLKwyuVlqx95wZP3 aL98KG0tIGDfPhN8XMRz vkX8Com2QJHhDXNibWIh P588e0zyu6brskWzdHY1 cVdlMIAyppwoExV8RNxs JLPmqnovMLh0CMuwHQYk lTG1JGDuxSTrJ6OlRUVf QI7ocoh4IWD9KXsgXCPo NsL4VGEuwLXxMCOfrJmv YTbob526GVH0AeWpTTBn goFfqFwkgO8xNiVgWLGP Q1RoJEBTGOejCdbTEZHK TiwgREkgXHBhcn0= Disclaimer (test code = c1ijsTYuVJTvpHEhLzWq 9844) EMPpUATaa8spCRRhsPGu ZzEwMzNcZnRuYmpcdWMx ISFxCoNnt5anr656iBNc f6gxZGRsLvJ2zORoFYQi cCGsR385VPUkOLegv6vq a5WwFXWkrVTxb6G8SQVM lbpqzNq9mJjoD44fj7A7 UbckS7puXZLuWBWrZ6Wy VK4jLCLkAao7NGB3MVY4 OVDrYGIcC6KbBP0rVXYi rATiEWr3k5sbsFvpVPMm MOX5i1abNHwqicDlIW8z mg9zrMu8l0rbozGjSZAq ZSHvuNVGVGKjO5AuqLzq Jf6kmIi3wDmjElkoCDP2 Iks0SK2fpd96ysg9zRsk NDCiccmcVyU0RJpsTFPg capoCXq0CBfxXKEwsBP7 XQAhiFEnB5YrOFPaOE8i qfm0RVE3MTpuJNRhIfQ9 NDBcaGVhZGVyeTcyMFxm u508FSA2ZfXfHR2iW6Ls g6M2uJ1jhCZgCEUflCLk EtWqQVFuct1kgMUkQYry v5CdLRO5ftO5iJQxeSHx HFIhBA25Mnhbj9JbWued NCL7BNTfizWmj3Grq9gf AiMumlKlL6wmL6JqRVKe KLRaVCIhDvCqfrUkz3Mi d6OnpQCbdJz0s9gnUDJb ASSdgSwgl7atECX8XDXi I4L2tVWqr9cfFLraLAKr bLX3trN7JATfpCHdU9Rn hO8uACKnVQ9vluj3m9om OJJ6RRowXUJwUqQ9ujT2 NDBcaGVhZGVyeTcyMFxm h440OKW8ZpXsPBAoe7Et L6WerPgaD20xdZwrP61c LBWvuNyslW9ymWyytO3q ZjBcZnMyNFxxbFxwbGFp holpAJxhgoW6JYuomnca FMMpLLouK2qhKmJiWSZq eKqyPNikj8XeDZOvQUMo OqbkvpU3RYMGv62tTQKg d6SoFUAtqH7bbLBqVSfa yeRsuGV8BHubeiThUoJr zgHqCACvjL6nNIAeEN0a NMRyzkSdbm5gitSkSJGp DSIcI0ElmnpqgMfmoiGh AXVqzy2cjlHoIJN4WTHT KL8RFGXgONAab43jZKIw fYdnaC8mrCLiecWuPHVa b4LvmL3iuHJUPIDeD8lu QE9yAOnzu8JdoRZxrVBm nZR1XLUtl0AzUmWorbFd zBCkfOAbI0BqmYlxS3pg YFAoYBTvcbLhdRQdp2Hf QXDriWS9iZIwJB4EYlMI z76nNMXyFWZEouAdUZWu eIdvnOG1pxC6eF2wCoNO ZiBhcHBsaWNhYmxlLCBj e550er2wqdH4KHHuCLTq equlb5EnVAGqSUOxwZ12 OOQxTUUahb0awwifxCQq xkVmH9Gdlla5bH9tPGHi YWluXGYxXGZzMjJcbGFu ZzEwMzNcaGljaFxmMVxk SrOkEFCfQMfwL7pdExFz ZnMyMlxwYXJ9 [facility]/OVA. PROLAPSE 2020-06-18 12:55:00 Test Item Value Reference Range Interpretation Comments UTERUS W/WO TUBE/OVA. PROLAPSE (test code = UTERUSPRO) RUN DATE: 06/18/20 [facility] PAGE 1 RUN TIME: 1813 Specimen Inquiry RUN USER: INTERFACE PATIENT: ISAMAR JACKSON LOC: [facility] U #: [id number] AGE/SX: 69/F ROOM: RE06/17/20[facility] DR: Angelina Huffman MD : 54 BED: DIS: STATUS: PRE SDC TLOC: SPEC #: [id number] RECD: 06/17/20 STATUS: ALICE ALFONSO #: [id number] MIKE: 06/17/20- [facility] DR: Angelina Huffman MD ENTERED: 06/17/20 SP TYPE: UTERUSPRO [facility] DR: ORDERED: LEVEL IV CODES: [id number] - UTERUS, NOS PROCEDURES: LEVEL IV (Incomplete) TISSUES: UTERUS, NOS - UTERUS,CERVIX,BILATERAL TUBES AND OVARIES CLINICAL HISTORY 69 year old, uterine prolapse (timur) FINAL DIAGNOSIS Uterus, bilateral fallopian tubes and ovaries, hysterectomy and bilateral salpingo-oophorectomy: cervix - parakeratosis consistent with prolapse - no dysplasia identified endometrium - benign endometrial polyp in a background of weakly proliferative phase endometrium myometrium - leiomyomas uterine serosa - no fibrous adhesions right fallopian tube - no significant pathologic alteration left fallopian tube - benign paratubal cysts right and left ovaries - no significant pathologic alteration CPT: 50407 [facility] GROSS DESCRIPTION ANATOMIC SOURCE OF TISSUE (per Requisition): Uterus, cervix, bilateral tubes and ovaries The specimen is received in formalin in a container, labeled with the patient's name and designated "uterus, cervix, bilateral tubes and ovaries". It consists of an 8.7 x 6 x 3.8 cm hysterectomy specimen with attached bilateral adnexa. The uterus weighs 82 gms. The serosa is swift, smooth, and glistening and contains a protruding 1.5 cm subserosal, firm nodule in the posterior wall. The cervical external os measures 0.5 cm. The portio vaginalis measures 3.7 cm. The uterine cervix measures 4.5 cm in length. [facility] [employer] [facility] sections are submitted in CONTINUED ON NEXT PAGE RUN DATE: 06/18/20 [facility] PAGE 2 RUN TIME: 1813 Specimen Inquiry RUN USER: INTERFACE SPEC #: [id number] PATIENT: ISAMAR JACKSON #[id number] (Continued) --- GROSS DESCRIPTION (Continued) A1. The endometrium measures 0.1 cm and contains a 0.8 cm red endometrial polyp. The myometrium measures 1.7 cm and contains additional swift, white, firm nodules measuring up to 0.5 cm. No degenerative changes are noted. [employer] sections are submitted in A2 and A3. The right adnexa consists of a 2.4 x 1.1 x 0.9 cm ovary with an attached 6 x 0.4 x 3 cm segment of fallopian tube with fimbriae The entire fimbriae and one cross-section of tube and ovary are submitted in A4. The left adnexa consists of a 2.7 x 1.4 x 1.2 cm ovary with an attached 4 x 0.3 x 0.3 cm segment of fallopian tube with fimbriae and multiple semi-translucent, paratubal cysts measuring up to 0.6 cm. The entire fimbriae and one cross-section of tube with cysts and ovary are submitted in A5. susana/timur 06/17/20 Signed Sherly Viera MD 06/18/20 1255 END OF REPORT COVID 19 Asymptomatic IH [id number] 15:33:00 Test Item Value Reference Range Interpretation [...] ncy Use Authorization(E UA) for use by abrilato bob certified under the CLIA thatmeet the re quirements to perform mode rate, high or waivedcomple xity tests. This jennifer t is authorized for use at thePoint of Car e (POC), i.e., in patien t care settingsoperati ng under a CLIA Certificat e of Waiver, Certifi franchesca ofCompliance, o r Certificate of Accreditation. This test is only authori tavia for the duration of thedeclaration that circumstances e xist justifying theauthorizatio n of emergency use o f in vitro diagnostic test sfor detection and/o r diagnosis of CO VID-19 under Wdaxtmz19 4(b)(1) of the Act, 21 U.S .C. 360bbb-3(b)(1), unless theauthorizatio n is terminated or r evoked sooner. CHEMISTRY 7 [id number] 11:37:00 Test Item Value Reference Range Interpretation [...] CA) 9.6 mg/dL 8.4-10.2 N CBC W/AUTO [id number] 11:21:00 Test Item Value Reference Range Interpretation [...] REQUIRED (test NORMAL NORMAL code = PLTMR) TISSUE [id number] 18:05:00Surgical Pathology Report Case: [id number] Authorizing Provider: Nini Bernal FNP Collected: 03/09/2020 12:55 PM Ordering Location: [facility] Radiology Main Received: 03/09/2020 01:44 PM Pathologist: Lidia Atwood MD Specimen: Biopsy, Liver The addendum is being issued to report the results of repeat trichrome stain. Addendum electronically signed by Lidia Joshi MD on 03/12/2020 at 5:48 PMThe amendment [...] see comment Signing Pathologist Direct Phone Line: [phone] electronically signed by Lidia Atwood MD on 03/12/2020 at 6:05 PM The biopsy shows mild portal inflammation, which is likely to be nonspecific because the current transaminases are within normal range. 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 [address], [address]658 X89 yearold female with metabolic syndrome and [...] formalinlabeled the patient's name, accession number and "[place] liver biopsy" are 2 swift-yellow cylindrical tissue [...] evaluated Immunohistochemistry technical testing was performed at [facility], Pathology Laboratory where it was developed [...] perform high complexity clinical laboratory testing.U/S, BIOPSY, [id number] 17:16:00Referring: Self (old/new, saw Dr. Conteh 18 yrs ago)Elevated liver enzymes, hepaitic fibrosisElevated liver enzymes, hepaitic fibrosisReason for Exam:->Elevated liver enzymes, hepaitic fibrosis [facility] 1950 Sex: FFINAL REPORT History: [...] biopsy of the liver. Signed: Maninder Murphy MDReport Verified Date/Time: 03/11/2020 17:16:48 Reading Location: [address] Body Reading Room , ABDOMEN, WITHOUT [id number] 11:49:00Referring: Self (old/new, saw Dr. Conteh 18 yrs ago)Unlisted Reason for Exam - Click Yes and Enter Reason Below->YesUnlisted Reason for Exam->Evaluate anatomy prior to image guided liver biopsyWill this procedure require oral contrast?->No [facility] AV : 1950 Sex: FFINAL REPORT TECHNIQUE: CT [...] abnormalities in the abdomen. Signed: Karine Felton MDRepsain[facility] Verified Date/Time: 03/09/2020 11:49:25 Reading Location: [facility] C013Y CT Body Reading Room [id number] 08:36:00 Test Item Value Reference Range Interpretation [...] mechanical heart valves.CBC W/PLT COUNT & AUTO [id number] 08:22:00 Test Item Value Reference Range Interpretation [...] 0-1 PERCENT (BEAKER) (test code = 2801) BASIC METABOLIC [id number] 14:14:00 Test Item Value Reference Range Interpretation [...] 697) EGFR (BEAKER) (test 73 mL/min/1.73 ESTIMA NORBERTO GFR IS code = 1092) sq m NOT ACCURATE CREATININE CLEARANCE IN PREDICTING GLOMERULAR FILTRATION RATE . ESTIMATED GFR I S NOT APPLICABLE FOR DIALYSIS PATIEN TS. Rehabilitator ID Anastacia WOLF FHEPATIC FUNCTION [id number] 14:14:00 Test Item Value Reference Range Interpretation [...] (test code = 30 U/L 6-55 347) Rehabilitator ID Anastacia WOLF FPROTHROMBIN [id number] 13:51:00 Test Item Value Reference Range Interpretation [...] mechanical heart valves.CBC W/PLT COUNT & AUTO [id number] 13:31:00 Test Item Value Reference Range Interpretation [...] 0-1 PERCENT (BEAKER) (test code = 2801) TISSUE [id number] 09:39:00Surgical Pathology Report Case: [id number] Authorizing Provider: Isamar Elam MD Collected: 10/07/2019 10:26 AM Ordering Location: [facility] ENDOSCOPY Received: 10/07/2019 02:15 PM SERVICES Pathologist: Joy Teixeira MD Specimens: A) - Duodenal, random biopsies B) -Stomach, random biopsies C) - Biopsy, Gastroesophageal Junction, random biopsies D) - Distal Esophagus, random biopsies E) - ProximalEsophagus, random biopsies F) - Polyp, Colon - Right/Ascending G) - Polyp, Colon -Left/Descending Block B: Gastric: Warthin-starry stain was performed which is negative for H. Pylori-like organisms.[id number] [id number] electronically signed by Joy Teixeira MD on 10/14/2019 at 9:39 AMA. DUODENUM, RANDOM BIOPSY: - DUODENAL MUCOSA WITH P RESERVED VILLOUS ARCHITECTURE WITH MILD INCREASE IN CHRONIC INFLAMMATION IN THE LAMINA PROPRIA WITH FOVEOLAR METAPLASIA SUGGESTIVE OF PEPTIC DUODENITISB. STOMACH, RANDOM BIOPSY: - GASTRIC ANTRUM TYPE MUCOSA WITH REACTIVE GASTROPATHY - GASTRIC BODY TYPE MUCOSA WITH NO SIGNIFICANT HI STOPATHOLOGICAL CHANGE - NEGATIVE FOR H. PYLORI ON [...] POLYP X2, COLD SNARE POLYPECTOMY: - TUBULAR OCTEADOC1VA/pl Signing Pathologist Direct Phone Line: [phone] signed by Joy Teixeira MD on 10/09/2019 [...] recommended. No increase in intraepithelial eosinophils is noted.62017 t3Oryblnhhohcc diagnosis: Dyspepsia, screening for colon cancer.A. Duodenal, [...] a 0.3 x 0.2 x 0.2 cm siwft irregular piece of tissue, which is submitted entirely in cassette C1. Part D. Received in formalin labeled "distal esophagus" consists of three swift irregular minutes pieces of tissue measuring 0.2 cm, 0.3 cm and 0.1 cm in greatest dimension. The specimen is filtered entirely in cassette D1.Part E. Received in formalin labeled "proximal esophag us" are three swift irregular to membranous pieces of tissue measuring 0.2 cm, 0.3 cm and 0.3 cm in greatest dimension each. The specimen is filtered entirely in cassette E1.Part F. Received in formalin labeled "polyp, colon-right/ascending" are multiple swift-pink to brown to green, spherical to membranous to flat pieces of tissue ranging between 0.1 cm to 0.4 cm in greatest dimension. The specimen is filtered entirely in cassette F1.Part G. Received in formalin labeled "polyp, colon-left/descending" consists of multiple swift-pink irregular to flat membranous pieces of tissue ranging between less than 0.1 cm to 0.4 cm in greatest dimension. The specimen is filtered entirely in cassette G1. MA/ewperpendicular The interpretation of this case included the use of immunohistochemistry or special stains.Control Slides Examined: In-house known positive controls were evaluated along with the test tissue. These control slides run alongside of the patients sample show appropriate staining. Internal positive and negative controls when available are evaluated Immunohistochemistry technical testing was performed at [facility], Pathology Laboratory where it was developed and its performance characteristics were determined. It has not been cleared or approved by the U.S. Food and Drug Ad ministration. The FDA has determined that such clearance or approval is not necessary. The test is used for clinical purposes. It should not be regarded as investigational or for research. This laboratory is certified under the Clinical Laboratory Improvement Amendments of 1988 (CLIA-88) as qualified to perform high complexity clinical laboratory testing.U/S, ABDOMINAL, [id number] 10:02:00Referring: Self (old/new, saw Dr. Conteh 18 yrs ago)Reason for Exam:- >Chronic hepatitis C - evaluate for cirrhosis and portal hypertensionFINAL REPORT HISTORY:Chronic hepatitis C - evaluate for cirrhosis and portal hypertension COMPARISON:None. TECHNIQUE:Ultrasound examination of the abdomen was performed with spectral and color Doppler imaging. FINDINGS: Liver: The liver is normal in size with increased echogenici ty. No focal lesions. The main portal vein measures 0.8 cm.Biliary: No stones. No sludge, pericholecystic fluid or wall thickening. Negative sonographic Ramirez's sign. Common bile duct measures 0.4 cm. No intrahepatic biliary ductal dilatation.Spleen: No splenomegaly.Pancreas: Visualized portions are unremarkable. Kidneys: The kidneys are normal in size without hydronephrosis nor sonographically evident solid mass lesion.Midline Vessels: Visualized portions of the IVC and aorta are unremarkable.Peritoneum: No free fluid. IMPRESSION: Echogenic liver, may be secondary to cirrhosis.No sonographicallyevident hepatic mass. Signed: Jah Montero MDReport Verified Date/Time: 08/01/2019 10:02:14 Reading Location: [facility] Radiology Reading Room ANTI-NUCLEAR ANTIBODY (MARY) 2019-07-25 13:52:00 Test Item Value Reference Range Interpretation Comments ANTI-NUCLEAR ANTIBODY (MARY) (BEAKER) Positive Negative A (test code = 418) Test performed by IFA method.MARY TITER AND [id number] 13:52:00 Test Item Value Reference Range Interpretation Comments MARY TITER (BEAKER) (test code = :160 1541) MARY PATTERN (BEAKER) (test code = Homogeneous 1781) [id number] 09:26:00 Test Item Value Reference Range Interpretation Comments FERRITIN (BEAKER) (test code = 154.50 ng/mL 5.00-275.00 361) Rehabilitator ID Anastacia WOLF FHEPATITIS C PCR, [id number] 20:12:00 Test Item Value Reference Range Interpretation Comments HCV RESULT COMPONENT HCV RNA not detected HCV RNA not detected (BEAKER) (test code = 2699) This test uses a Real-Time Polymerase Chain Reaction (RT-PCR) methodology and was performed using JABIER Ampliprep/JABIER TaqMan HCV test kit version 2.0 ([employer]).Reportable range for this assay is 15 - 100,000,000 IU per mL (1.18 - 8.00 Log IU/mL).HEPATITIS A ANTIBODY, IGG 2019-07-22 13:12:00 Test Item Value Reference Range Interpretation Comments HEPATITIS A IGG ANTIBODY (BEAKER) Reactive Nonreactive A (test code = 2797) Rehabilitator ID - LUCIANO FHEPATITIS B CORE ANTIBODY, [id number] 13:12:00 Test Item Value Reference Range Interpretation Comments HEPATITIS B CORE TOTAL ANTIBODY Reactive Nonreactive A (BEAKER) (test code = 497) Rehabilitator ID - LUCIANO FHEPATITIS B SURFACE [id number] 13:12:00 Test Item Value Reference Range Interpretation Comments HEPATITIS B SURFACE ANTIBODY < mIU/mL <8.0 (BEAKER) (test code = 647) Rehabilitator ID - LUCIANO FHEPATITIS B SURFACE [id number] 13:11:00 Test Item Value Reference Range Interpretation Comments HEPATITIS B SURFACE ANTIGEN (2) Nonreactive Nonreactive (BEAKER) (test code = 2585) Specimen is considered negative for HBsAg.IMMUNOGLOBULIN G (IGG)2019-07-22 12:56:00 Test Item Value Reference Range Interpretation Comments IMMUNOGLOBULIN G (IGG) (BEAKER) 1109 mg/dL 540-1,822 (test code = 427) Rehabilitator ID - LUCIANO LOVE, TIBC, % SAT. (WITHOUT FERRITIN)2019-07-22 12:56:00 Test Item Value Reference Range Interpretation Comments IRON (BEAKER) (test code = 547) 102.0 ug/dL 40.0-160.0 TOTAL IRON BINDING CAPACITY 391 ug/dL 250-450 (BEAKER) (test code = 769) IRON % SATURATION (2) (BEAKER) 26 % 20-55 (test code = 2590) Rehabilitator ID Anastacia WOLF FCOMPREHENSIVE METABOLIC [id number] 12:51:00 Test Item Value Reference Range Interpretation [...] 347) EGFR (BEAKER) (test 68 mL/min/1.73 ESTIMA NORBERTO GFR IS code = 1092) sq m NOT ACCURATE CREATININE CLEARANCE IN PREDICTING GLOMERULAR FILTRATION RATE . ESTIMATED GFR I S NOT APPLICABLE FOR DIALYSIS PATIEN TS. Rehabilitator ID - LUCIANO FBILIRUBIN, [id number] 12:51:00 Test Item Value Reference Range Interpretation Comments BILIRUBIN DIRECT (BEAKER) (test 0.2 mg/dL 0.1-0.5 code = 706) Rehabilitator ID - LUCIANO [id number] 12:41:00 Test Item Value Reference Range Interpretation Comments ALPHA-1 ANTITRYPSIN (BEAKER) 161.80 mg/dL 90.00-200.00 (test code = 502) Rehabilitator ID - LUCIANO FCBC W/PLT COUNT & AUTO [id number] 12:20:00 Test Item Value Reference Range Interpretation [...] = 2801) SCR MAMM BILATERAL BHARTI CAD [id number] 10:37:21 - SCR MAMM BILATERAL BHARTI CAD DIGITALBILATERAL DIGITAL SCREENING MAMMOGRAM 3D/2D WITH CAD: 10/22/2018 CLINICAL: Asymptomatic. Digital breast tomosynthesis was performed in addition to routine CC and MLO views. Current mammographic images were evaluated by either a Agenda M-Vu or an iCAD version 7.2 computer aided detection system. No [...] technical issue.Christa Broussard M.D. cc/:11/07/2018 10:37:21 Entry: cc - 11/09/2018 13:20:57Attending Technologist: Ching Mcgowan MM, [employer] MammographyImaging Technologist: Aleta Julio MM, [employer] Mobile Mammographyletter sent: Additional Imaging Mammogram BI- RADS: 0 IndeterminateTISSUE [id number] 08:41:00Surgical Pathology Report Case: [id number] Authorizing Provider: Sandeep Ramos Collected: 10/04/2017 1110 MD Wilda OrderingLocation[facility] Received: 10/04/2017 1417 SERVICES Pathologist: Bruno Galan MD Specimen: Condyle,Left Knee PART A LEFT KNEE CONDYLE, ARTHROPLASTY:OSTEOARTHRITIC CHANGES IN BONE AND CARTILAGE.REACTIVE SYNOVIAL TISSUE. Signing Pathologist Direct Phone Line: [phone] signed by Bruno Galan MD on 10/13/2017 at 8:41 [id number], [id number] osteoarthritis of left kneeLeft knee condyleThe specimen [...] bone submitted for decalcification. CG/pl PERFORMED.BASIC METABOLIC [id number] 05:02:00 Test Item Value Reference Range Interpretation [...] 697) EGFR (BEAKER) (test 73 mL/min/1.73 ESTIMA NORBERTO GFR IS code = 1092) sq m NOT ACCURATE CREATININE CLEARANCE IN PREDICTING GLOMERULAR FILTRATION RATE . ESTIMATED GFR I S NOT APPLICABLE FOR DIALYSIS PATIEN TS. HEMOGLOBIN AND [id number] 04:44:00 Test Item Value Reference Range Interpretation Comments HEMOGLOBIN (BEAKER) (test code = 11.0 GM/DL 11.2-15.7 L 410) HEMATOCRIT (BEAKER) (test code = 33.6 % 34.1-44.9 L 411) RAD, KNEE, 1 OR 2 VIEWS, [id number] 13:01:00STAT in PACUReason for exam:- >S/p left TKAShould this be performed at the bedside?->YesFINAL REPORT Left knee 2 views 10/04/2017 1:00 PM CLINICAL HISTORY: Postop COMPARISON: None available IMPRESSION: Hardware and bone alignment are satisfactory status post left total knee arthroplasty. No periprosthetic fracture is evident. There is evidence for prior hardware placement in the left femur. Signed: Mack Frausto Verified Date/Time: 10/04/2017 13:01:24 Reading Location: [address] Neuro Reading Room [id number] 13:50:00 Test Item Value Reference Range Interpretation [...] = 353) 53 U/L 5-34 H ALKALINE [id number] 13:46:00 Test Item Value Reference Range Interpretation Comments ALKALINE PHOSPHATASE (BEAKER) (test 54 U/L 40-150 code = 346) [id number] 13:46:00 Test Item Value Reference Range Interpretation Comments SODIUM (BEAKER) (test code = 381) 138 meq/L 136-145 POTASSIUM (BEAKER) (test code = 3.8 meq/L 3.5-5.1 379) CHLORIDE (BEAKER) (test code = 382) 102 meq/L 98-107 CO2 (BEAKER) (test code = 355) 28 meq/L 22-29 BUN AND [id number] 13:46:00 Test Item Value Reference Range Interpretation Comments BLOOD UREA NITROGEN 11 mg/dL 7-21 (BEAKER) (test code = 354) CREATININE (BEAKER) 0.79 mg/dL 0.57-1.25 (test code = 358) EGFR (BEAKER) (test 73 mL/min/1.73 ESTIMA NORBERTO GFR IS code = 1092) sq m NOT ACCURATE CREATININE CLEARANCE IN PREDICTING GLOMERULAR FILTRATION RATE . ESTIMATED GFR I S NOT APPLICABLE FOR DIALYSIS PATIEN TS. [id number] 13:29:00 Test Item Value Reference Range Interpretation Comments HEMOGLOBIN (BEAKER) (test code = 13.4 GM/DL 11.2-15.7 410) PLATELET [id number] 13:29:00 Test Item Value Reference Range Interpretation Comments PLATELET COUNT (BEAKER) (test 231 K/CU MM 150-450 code = 756)
== END 2021-09-21 09:41 | disposition home or self-care (01) ==
LOC: ER 07:38
DX: B02.9 Zoster without complications (principal); I10 Essential (primary) hypertension; F17.210 Nicotine dependence, cigarettes, uncomplicated; Z88.1 Allergy status to other antibiotic agents; Z88.2 Allergy status to sulfonamides; Z91.048 Other nonmedicinal substance allergy status
CPT/HCPCS: 99283

== ENCOUNTER 2023-11-27 08:13 | Day surgery (SDC) | payer OTHER, MEDICARE ==
[2023-11-24 14:53] LABS: Absolute Basophils 0.1 K/uL (0-0.5); Absolute Eosinophils 0.4 K/uL (0-0.5); Absolute Lymphocytes (CBC) 1.7 K/uL (0.7-4.9); Absolute Neutrophil 4.4 K/uL (1.8-8.0); Basophils % 0.8 % (0-1.3); Eosinophils % 5.3 % (0-4.4); Hematocrit 38.2 % (36.0-45.0); Hemoglobin 13.1 g/dL (12.0-15.0); Lymphocytes % 21.9 % (15.3-44.8); MCH 34.6 pg (27.0-35.0); MCHC 34.2 g/dL (32.0-36.0); MCV 101.1 fL (80-100); MPV 8.1 fL (7.6-11.3); Monocytes % 13.3 % (3.3-12.3); Neutrophils % 58.7 % (41.7-73.7); Nucleated Red Blood Cells % 0.1 % (0-0); Platelets 237 thou/uL (152-406); RBC Red Blood Cell Count 3.78 M/uL (3.86-4.86); Red Cell Distribution Width 12.4 % (12.1-15.2)
[2023-11-24 15:06] LABS: Anion Gap 4.3 mEq/L (5.0-15.0); Potassium 3.3 mEq/L (3.5-5.1)
[2023-11-27] MEDS ORDERED: CEFAZOLIN SODIUM 1 GM/VIAL ONE (08:29)
[2023-11-27] MEDS ORDERED: Ringers Lactate 1,000 ML IV ONE (08:29)
[2023-11-27] MEDS ORDERED: LIDOCAINE 2% MPF 5 ML VIAL ONE (09:45)
[2023-11-27] MEDS ORDERED: MIDAZOLAM HCL 2 MG/2 ML INJ ONE (09:45)
[2023-11-27] MEDS ORDERED: propofoL 200 MG/20 ML VIAL IV ONE (09:45)
[2023-11-27] MEDS ORDERED: FENTANYL CITR 100 MCG/2 ML ONE (09:45)
[2023-11-27] MEDS ORDERED: BUPIVACAINE 0.5% PF 10 ML VIAL ONE (09:47)
--- NOTE | 2023-11-27 12:20 | P.BOP ---
Preoperative diagnosis: Perianal mass Postoperative diagnosis: same Primary procedure: EUA, anoscopy, rigid proctoscopy, Incisional biopsy of perianal mass Estimated blood loss: <5cc Specimen: biopsy Findings: Anal canal ulcerated Anesthesia: General Complications: None Implants: surgicell Transferred to: Recovery Room Condition: Good
--- NOTE | 2023-11-27 12:41 | EKG ---
Test Date: 2023-11-24 Test Time: 14:36:29 Manager Transition: SARAH MEASUREMENT RESULTS: Intervals: Rate: 71 SC: 164 QRSD: 74 QT: 426 QTc: 462 [place]: P: 62 SC: 164 QRS: 75 T: 73 INTERPRETIVE STATEMENTS: Normal sinus rhythm Normal ECG Compared to ECG 07/09/2020 12:58:01 No significant changes Electronically Signed On 11-27-23 12:38:28 CDT by Malcolm Hurd
--- NOTE | 2023-11-27 13:20 | OP ---
Date of Procedure: 11/27/2023 Surgeon: Huang Almonte MD Preoperative Diagnosis: Perianal mass. Postoperative Diagnosis: Perianal mass. Procedures: Examination under anesthesia, anoscopy, rigid proctoscopy, incisional biopsy of perianal mass. Estimated Blood Loss: Less than 5 cc. Specimen: Biopsy. Finding: Anal canal ulcerated mass. Anesthesia: General plus local. Complications: None. Indications: This is a case of a 73-year-old patient who came to us for investigation of the periana l region. She had some discomfort and pain in that region. An imaging was done showing an area, cou ld be an abscess versus a mass. So the office evaluation is limited due to discomfort and pain. So the benefits, alternatives, and risks of EUA, anoscopy, proctoscopy, possible incisional biopsy of pe rianal mass versus drainage of an abscess fully discussed with the patient which include, but not hernandez ited to, infection, bleeding, damage to adjacent structures, anesthesia complication, nonhealing woun d, NE, and even . She also understands this may not relieve any symptoms. She might need more than one surgical intervention. She understands this may require wound care, depends on the finding. Description Of The Operation: The patient was brought to the operating room, placed in supine positi on. Anesthesia was done without complication. The patient was placed in lithotomy position. Perian al area was prepped and draped in sterile fashion. Rectal examination was done. We noticed the carla ration present but it felt like induration of the perianal region, mostly on the left side and even t rafaela may be covering the entire half side of the left side. It feels bigger on the posterior left s pepito region. It feels with friable tissue in that area. A rigid proctoscopy was done, but we can onl y advance about 12 cm because of a large amount of stool present. It does not let us evaluate the re ctum. Hopefully, when we check with the GI doctor again, we will check the result of the previous co lonoscopies to see if we were able to see anything else past this point. We put in an anoscope with a window on the side. Local anesthetic was re-applied and then we had this friable lesion with an ul cerated center. We took several pieces of that area as an incisional biopsy because the final surger y or debridement will be done based on the result of this biopsy. Hemostasis was obtained with the h elp of Bovie cauterizer and Surgicel. No bleeding, at this moment. At that moment, I proceeded to r emove the retractor and then sent the patient to recovery. Sponge counts and instrument counts were correct. GORAN/JAIME Voice ID: [id number] Report ID: [id number]
--- NOTE | 2023-11-27 13:24 | DS ---
Diagnosis: Perianal mass. Procedures: Examination under anesthesia, anoscopy, rigid proctoscopy, incisional biopsy of perianal mass. Disposition: Home. Activity: As tolerated. No heavy lifting. Discharge Instructions: Follow up in my office in 1 week. Call for appointment at [phone]. Katey resendiz 4 times a day and after every bowel movement. CONTRERAS Voice ID: [id number] Report ID: [id number]
[2023-11-27] MEDS: HYDROCODONE/APAP 7.5/325 MG TAB ONE (13:28)
[2023-11-27 14:03] VITALS: BP 122/72; TEMP 98; O2SAT 97
== END 2023-11-27 13:37 | disposition home or self-care (01) ==
LOC: OR 08:13
PROVIDERS: ATTEND Surgery
PROC: 0DJD8ZZ Inspection of Lower Intestinal Tract, Via Natural or Artificial Opening Endoscopic (ICD-10-PCS; principal; 2023-11-27 10:15)
DX: C44.520 Squamous cell carcinoma of anal skin (principal); K62.89 Other specified diseases of anus and rectum
CPT/HCPCS: 46606; 93005; 85025; 80048; 36415; 88305; J2704; J2001; J2250; J3010; J7120; J0690

== ENCOUNTER 2024-04-24 07:04 | Day surgery (SDC) | payer OTHER, MEDICARE ==
[2024-04-23 12:06] LABS: Absolute Eosinophils 0.5 K/uL (0-0.5); Absolute Monocytes 0.9 K/uL (0.1-1.3); Absolute Neutrophil 6.4 K/uL (1.8-8.0); Basophils % 0.2 % (0-1.3); Eosinophils % 5.5 % (0-4.4); Hematocrit 30.8 % (36.0-45.0); Hemoglobin 10.7 g/dL (12.0-15.0); Lymphocytes % 10.9 % (15.3-44.8); MCHC 34.6 g/dL (32.0-36.0); MCV 104.3 fL (80-100); MPV 7.5 fL (7.6-11.3); Monocytes % 10.4 % (3.3-12.3); Platelets 210 thou/uL (152-406); RBC Red Blood Cell Count 2.96 M/uL (3.86-4.86); Red Cell Distribution Width 15.6 % (12.1-15.2)
[2024-04-23 12:23] LABS: Albumin 3.3 g/dL (3.4-5.0); Albumin/Globulin Ratio 0.8 (1.1-1.8); Anion Gap 6.8 mEq/L (5.0-15.0); Bilirubin Total 0.3 mg/dL (0.2-1.0); Globulin 3.9 g/dL (2.3-3.5); Potassium 3.8 mEq/L (3.5-5.1); Protein, Total 7.2 g/dL (6.4-8.2)
[2024-04-24] MEDS ORDERED: ONDANSETRON 4 MG/2 ML VIAL ONE (07:24)
[2024-04-24] MEDS ORDERED: propofoL 200 MG/20 ML VIAL IV ONE (07:24)
[2024-04-24] MEDS ORDERED: FENTANYL CITR 100 MCG/2 ML ONE (07:24)
[2024-04-24] MEDS ORDERED: LIDOCAINE 2% MPF 5 ML VIAL ONE (07:24)
[2024-04-24] MEDS ORDERED: BUPIVACAINE 0.5% PF 10 ML VIAL ONE (08:17)
[2024-04-24] MEDS: Ringers Lactate 1,000 ML IV ONE (08:27)
[2024-04-24] MEDS ORDERED: dexAMETHasone 4 MG/ML VIAL ONE (08:33)
[2024-04-24] MEDS: CLINDAMYCIN 600MG/D5W 50 ML IV ONE (08:37)
[2024-04-24] MEDS ORDERED: COLLAGENASE 30 GM OINTMENT TOP ONE (08:56)
[2024-04-24] MEDS ORDERED: MUPIROCIN 2% OINT 22GM TUBE TOP ONE (08:56)
[2024-04-24 11:21] VITALS: BP 130/67; TEMP 97.7; O2SAT 96
--- NOTE | 2024-04-25 14:11 | P.BOP ---
Preoperative diagnosis: Perianal abscess, hx of rectal cancer Postoperative diagnosis: same Primary procedure: EUA, anoscopy, proctoscopy, Incision & drainage of perianal abscess complex Secondary procedure: 3x3cm Estimated blood loss: <10cc Specimen: culture Findings: abscess Anesthesia: General Complications: None Drain(s): Other (03/09 iodoform) Transferred to: Recovery Room Condition: Good
--- NOTE | 2024-04-25 20:31 | OP ---
Surgeon: Huang Almonte MD Preoperative Diagnoses: Perianal abscess, history of rectal cancer. Postoperative Diagnoses: Perianal abscess, history of rectal cancer. Procedures: Examination under anesthesia, anoscopy, rigid proctoscopy, incision and drainage of poncho anal abscess. Estimated Blood Loss: Less than 10 cc. Specimen: Culture. Findings: Complex abscess with multiple loculations. Packing: Quarter of an inch iodoform. Indication: This is a case of a 73-year-old patient with unfortunate history of rectal anal cancer, diverting colostomy, status post radiation therapy, who is doing better except over the last 3 days d eveloped a swelling of the perianal region with fluctuance present, warmth, redness, diagnosed with p erianal abscess. The benefits, alternatives, and risks of EUA, anoscopy, proctoscopy, I and D of per ianal abscess fully explained which include, but not limited to, infection, bleeding, damage to adjac ent structures, anesthesia complication, recurrence, ME, and even . She also understands this m ay not relieve any symptoms. She might need more than one surgical intervention. She understood, si gned a consent. She was also advised the importance of her service of this new findings, so they can arrange her treatment accordingly. She signed a consent. Description Of The Operation: Patient was brought to the operating room, placed in supine position. Anesthesia was induced without complication. The patient was placed in lithotomy position with prop er protection. Perianal area was prepped and draped in a sterile fashion. A time-out was called. L ocal anesthesia was applied. We were careful with the instruments. The patient had previous radiati on in that area. So, anal examination was done. Very tight anal region. We were able to put the ri gid proctoscope for about 2 inches just to see that the abscess that goes into the rectum. I could n ot see evidence of that. The anoscope, the smallest can go also with a window on the side. Once aga in, we saw the abscess outside, but we did not see it in the rectum. So, after that, I made an incis ion on the perianal area. Pus was obtained. Abscess with multiple loculations, complex abscess, irr igated. Hemostasis was obtained. Pus was cultured. Biopsy was sent since she has history of cancer in that area. The patient tolerated the procedure well. Area was packed with wet-to-dry dressing. Patient sent to Recovery in stable condition. GORAN/JAIME Voice ID: [id number] Report ID: [id number]
--- NOTE | 2024-04-25 20:36 | DS ---
Date of Discharge: 04/24/2024 Diagnoses: History of rectal anal cancer, now with a complex abscess. Procedure: Examination under anesthesia, anoscopy, proctoscopy, I and D of complex perianal abscess. Condition: Stable. Disposition: Home. Activity: As tolerated. No heavy lifting. Discharge Instructions: Follow up in my office in 1 week. Call for appointment at [phone]. She caban s iodoform packing that will stay there for the next 48 hours. She is going to come to the [facility] in 2 days to have it removed and to teach her dressing changes. GORAN/JAIME Voice ID: [id number] Report ID: [id number]
== END 2024-04-24 10:41 | disposition home or self-care (01) ==
LOC: OR 07:04
PROVIDERS: ATTEND Surgery
PROC: 0D9Q0ZZ Drainage of Anus, Open Approach (ICD-10-PCS; 2024-04-24)
PROC: 0DJD8ZZ Inspection of Lower Intestinal Tract, Via Natural or Artificial Opening Endoscopic (ICD-10-PCS; principal; 2024-04-24 09:00)
DX: K61.0 Anal abscess (principal)
CPT/HCPCS: 87070; 85025; 36415; 87205; 88305; 87075; 80053; 45300; 46050; J2704; J1100; J2003; J3010; J2405; J7120; 88304; J3590